=== PATIENT | female | born 1960 | race Caucasian/White ===

== ENCOUNTER 2024-03-30 15:55 | Outpatient (AMB) | payer OTHER, SELFPAY ==
--- NOTE | 2024-03-30 15:56 | MHC.PC.OV ---
Vital Signs 03/30/24 15:57 03/30/24 16:28 Height 5 ft 9 in Weight 294 lb BMI 43.4 BP 180/94 H 120/80 Blood Pressure Location Rt radial Lt radial Position Sitting Respiration 12 Pulse 82 Pulse Source Pulse Oximeter Pulse Oximetry (%) 95 Oxygen Delivery Method Room Air Intake Visit Reasons: NPV Desizing Machine Offbearer Required: No Accompanied by: Self / Same As Patient Allergies hydrocodone [From Vicodin] Allergy (Severe, Verified 03/30/24 16:02) Unknown lisinopril Allergy (Severe, Verified 03/30/24 16:02) Difficulty Breathing prednisolone Allergy (Severe, Verified 03/30/24 16:02) Unknown Medication List - Last Reconciled 04/01/24 by Cierra Whitten MD albuterol sulfate 90 mcg/actuation 1 inh inhalation Q4-6H PRN cefdinir 300 mg PO BID 10 days chlorthalidone 25 mg PO DAILY furosemide 20 mg PO DAILY PRN Tobacco use date assessed: 03/30/24 Dental Screening Dental Screen Date: 03/30/24 Did you have a dental visit in the last 12 months?: Yes Did you have a dental problem in the last 6 months where you did not have access to dental care?: No Was dental information given to patient?: Patient has dentist HPI HPI Comments History of Present Illness Details 64-year-old female with a past medical history of allergies/allergic rhinitis, asthma, recurrent sinusitis, Raynaud's, obesity, hyperlipidemia presenting for follow-up CV: On chlorthalidone 25 mg a day for hypertension. Initial BP quite high today, however quickly normalized. Declines statin though LDL 174 and 10/11/2023. She has intermittent leg swelling/fluid retention when she works 12 hour shifts. Not eating added salt. Denies shortness of breath Asthma/HGB: On Zyrtec, Flonase, albuterol. History of fluid-filled blisters, bullous pemphigoid, 2019 in about 10/11/2022. No interval issues Mammo 02/12/2023 Cologuard 02/28/2023 ROS see HPI PHYSICAL EXAM: GENERAL: Alert and oriented x 3. NAD EYES: EOMI. Anicteric. HENT: Moist mucous membranes. No scleral icterus. No cervical lymphadenopathy. LUNGS: Clear to auscultation bilaterally. CARDIOVASCULAR: Regular rate and rhythm. No murmur. No JVD. ABDOMEN: Soft, non-tender +bs EXTREMITIES:Trace bilateral LE edema SKIN: No rashes or lesions. Warm. NEUROLOGIC: No focal neurological deficits. CN II-XII grossly intact PSYCHIATRIC: Cooperative. Appropriate mood and affect [facility] Medical History Severe obesity Seasonal allergies Prediabetes Hyperlipidemia Asthma Surgical History Hx of tonsillectomy Family History Brother Heart disease Mother Heart disease Hypertension Father Heart disease Hypertension Social History Household Members: Spouse Housing: House Are you a primary child care lead teacher to a significant other at home: No Do you presently have visiting nurse or other home services: No 75 years or older and lives alone: No Alcohol intake: current Alcohol intake frequency: a few times a month Patient Tobacco Use Status: Never used Tobacco e-Cigarette/Vaping Use: Never Used service: No Current occupational status: employed 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 Cognitive needs: No Hearing needs: No Vision needs: Yes (will be seeing eye doctor) Physical exam (Primary Care) Vital Signs: Last Vital Signs Pulse 82 03/30/24 15:57 Resp 12 03/30/24 15:57 BP 120/80 03/30/24 16:28 Pulse Ox 95 03/30/24 15:57 Oxygen Delivery Method Room Air 03/30/24 15:57 BMI result Body Mass Index 43.4 Tobacco/Smoking Status: Tobacco use Status Tobacco use date assessed 03/30/24 03/30/24 16:04 Patient Tobacco Use Status Never used Tobacco 03/30/24 16:04 e-Cigarette/Vaping Use Never Used 03/30/24 16:04 Assessment and Plan Assessment & Plan (1) Hypertension: Code(s): I10 - Essential (primary) hypertension Qualifiers: Hypertension type: primary hypertension Qualified Code(s): I10 - Essential (primary) hypertension Plan: Blood pressure well controlled She will continue to watch sodium intake Furosemide prn LE swelling. Recommend 8-15mmhg compression socks on work days prn (2) Asthma: Code(s): J45.909 - Unspecified asthma, uncomplicated Qualifiers: Asthma complication type: unspecified Asthma persistence: intermittent Asthma severity: mild Qualified Code(s): J45.20 - Mild intermittent asthma, uncomplicated Plan: adequately controlled on current medications (3) Hyperlipidemia: Code(s): E78.5 - Hyperlipidemia, unspecified Qualifiers: Hyperlipidemia type: mixed hyperlipidemia Qualified Code(s): E78.2 - Mixed hyperlipidemia (4) Severe obesity: Code(s): E66.01 - Morbid (severe) obesity due to excess calories (5) Prediabetes: Code(s): R73.03 - Prediabetes Plan: monitor labs Orders: Orders Vitamin B12 and Folate 03/30/24 E78.2 - Mixed hyperlipidemia, I10 - Essential (primary) hypertension, J45.20 - Mild intermittent asthma, uncomplicated, R53.83 - Other fatigue Basic Metabolic Panel 03/30/24 E78.2 - Mixed hyperlipidemia, I10 - Essential (primary) hypertension, R73.03 - Prediabetes Vitamin D 1,25 dihydroxy 03/30/24 E78.2 - Mixed hyperlipidemia, I10 - Essential (primary) hypertension, J45.20 - Mild intermittent asthma, uncomplicated, R53.83 - Other fatigue Hemoglobin A1c 03/30/24 E78.2 - Mixed hyperlipidemia, I10 - Essential (primary) hypertension, R73.03 - Prediabetes Comprehensive Met. Panel 03/30/24 E78.2 - Mixed hyperlipidemia, I10 - Essential (primary) hypertension, R73.03 - Prediabetes Lipid Panel 03/30/24 E78.2 - Mixed hyperlipidemia, I10 - Essential (primary) hypertension, R73.03 - Prediabetes Medications: New cefdinir 300 mg PO BID 10 days 20 caps 0RF albuterol sulfate 90 mcg/actuation 1 inh inhalation Q4-6H PRN 1 ea 0RF shortness of breath or wheezing chlorthalidone 25 mg PO DAILY 30 tabs 0RF furosemide 20 mg PO DAILY PRN 90 tabs 1RF weight gain Coding Level of Care Code Est Pt Level 5 (38971) Diagnoses Primary hypertension I10 Hypertension type: primary hypertension Mild intermittent asthma, unspecified whether complicated J45.20 Asthma complication type: unspecified Asthma persistence: intermittent Asthma severity: mild Mixed hyperlipidemia E78.2 Hyperlipidemia type: mixed hyperlipidemia Severe obesity E66.01 Prediabetes R73.03 Time Spent (min) 46
[2024-03-30 15:57] VITALS: BP 180/94; PULSE 82; RESP 12; O2SAT 95; BMI 43.4
[2024-03-30 16:28] VITALS: BP 120/80
== END 2024-03-30 16:43 | disposition home or self-care (01) ==
PROVIDERS: PCP Internal Medicine; Visit Provider Internal Medicine
DX: I10 Essential (primary) hypertension (principal); E66.01 Morbid (severe) obesity due to excess calories; Z68.41 Body mass index [BMI] 40.0-44.9, adult; J45.20 Mild intermittent asthma, uncomplicated; E78.2 Mixed hyperlipidemia; R73.03 Prediabetes
CPT/HCPCS: 99215

== ENCOUNTER 2024-06-02 09:53 | Outpatient (REF) | payer OTHER, SELFPAY ==
[2024-06-02 11:38] LABS: Estimated Average Glucose 163 mg/dL; Hemoglobin A1c % 7.3 % (<6.0)
[2024-06-02 11:55] LABS: Alanine Aminotransferase 46 U/L (0-31); Albumin Level 4.1 g/dL (3.5-5.0); Alkaline Phosphatase 55 U/L (39-117); Anion Gap 14 (12-20); Aspartate Amino Transferase 25 U/L (5-31); Bilirubin Total 0.5 mg/dL (0.0-1.0); Blood Urea Nitrogen 22 mg/dL (9-16); Calcium 9.7 mg/dL (8.4-10.2); Carbon Dioxide 28 mmol/L (22-29); Chloride 101 mmol/L (96-108); Cholesterol 217 mg/dL (<200); Estimated Glomerular Filt Rate 59; Glucose Random 165 mg/dL (60-115); HDL Cholesterol 50 mg/dL (>40); LDL Cholesterol Calculated 142 mg/dL (<100); Potassium 3.7 mmol/L (3.3-5.1); Sodium 139 mmol/L (135-145); Total Protein 7.6 g/dL (6.5-8.0); Triglycerides 129 mg/dL (<150)
[2024-06-02 12:22] LABS: Folate 11.2 ng/mL (> or = 4.0); Vitamin B12 399 pg/mL (200-900)
[2024-06-10 18:13] LABS: VITAMIN D (1,25 OH) D3 32 pg/mL; Vit D (1,25-Dihydroxy) Total 32 pg/mL (18-72); Vitamin D (1,25 OH) D2 <8 pg/mL
== END 2024-06-02 09:54 | disposition home or self-care (01) ==
LOC: HO.WFDLDS 09:53
PROVIDERS: Visit Provider Internal Medicine
DX: I10 Essential (primary) hypertension (principal); E78.2 Mixed hyperlipidemia; R73.03 Prediabetes; J45.20 Mild intermittent asthma, uncomplicated; R53.83 Other fatigue
CPT/HCPCS: 36415; 80053; 80061; 82607; 82652; 82746; 83036

== ENCOUNTER 2024-06-08 10:47 | Outpatient (AMB) | payer OTHER, SELFPAY ==
--- NOTE | 2024-06-08 10:43 | MHC.PC.OV ---
Intake Visit Reasons: labs review Intake Note: Patient is looking to review labs. Correspondence Review Clerk Required: No Accompanied by: Self / Same As Patient Allergies hydrocodone [From Vicodin] Allergy (Severe, Verified 06/08/24 10:44) Unknown lisinopril Allergy (Severe, Verified 06/08/24 10:44) Difficulty Breathing prednisolone Allergy (Severe, Verified 06/08/24 10:44) Unknown Tobacco use date assessed: 03/30/24 Dental Screening Dental Screen Date: 03/30/24 HPI HPI Comments History of Present Illness Details 64-year-old female with a past medical history of allergies/allergic rhinitis, asthma, recurrent sinusitis, Raynaud's, obesity, hyperlipidemia presenting for follow-up recent labs-particulary A1C now in diabetic range at 7.3% Discussed A1C of 7.3%. is diabetic so has some knowledge. Discussed various treatment options. Wants 3 months to start exercising and wants to see diabetic development vice president. Would consider medications if not improved thereafter. LDL has improved but still high especially in light of diabetes. CV: On chlorthalidone 25 mg a day for hypertension. Initial BP quite high today, however quickly normalized. Declines statin though LDL 174 and 10/11/2023. She has intermittent leg swelling/fluid retention when she works 12 hour shifts. Not eating added salt. Denies shortness of breath Asthma/HGB: On Zyrtec, Flonase, albuterol. History of fluid-filled blisters, bullous pemphigoid, 2019 in about 10/11/2022. No interval issues Mammo 02/12/2023 Cologuard 02/28/2023 ROS see HPI PHYSICAL EXAM: telehealth [facility] Medical History Severe obesity Seasonal allergies Prediabetes Hyperlipidemia Asthma Surgical History Hx of tonsillectomy Family History Brother Heart disease Mother Heart disease Hypertension Father Heart disease Hypertension Social History Household Members: Spouse Housing: House Are you a primary infant childcare provider to a significant other at home: No Do you presently have visiting nurse or other home services: No 75 years or older and lives alone: No Alcohol intake: current Alcohol intake frequency: a few times a month Patient Tobacco Use Status: Never used Tobacco e-Cigarette/Vaping Use: Never Used service: No Current occupational status: employed 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 Cognitive needs: No Hearing needs: No Vision needs: Yes (will be seeing eye doctor) Physical exam (Primary Care) Tobacco/Smoking Status: Tobacco use Status Tobacco use date assessed 03/30/24 06/08/24 10:46 Patient Tobacco Use Status Never used Tobacco 06/08/24 10:46 e-Cigarette/Vaping Use Never Used 06/08/24 10:46 Telehealth Telehealth Telehealth Platform: Telephone Location of provider rendering services: practice address Location of patient: address on file Patient Identification confirmed using: Name, : Yes Telehealth method: voice only Patient verbally consented to treatment: Yes Patient verbally consented to billing insurance company: Yes Patient informed of any privacy concerns related to visit: Yes Minutes spent on Phone/Video with Pt.: 33 Assessment and Plan Assessment & Plan (1) Type 2 diabetes mellitus: Code(s): E11.9 - Type 2 diabetes mellitus without complications Qualifiers: Diabetes mellitus penitentiary insulin use: without penitentiary use Diabetes mellitus complication status: with hyperglycemia Qualified Code(s): E11.65 - Type 2 diabetes mellitus with hyperglycemia Plan: Discussed new diagnosis Testing supplies sent Have referred to nutrition and will give her 3 month trial without medications. She would be willing at that point to start medications if we dont see considerable improvement. Orders: Orders Hemoglobin A1c Today E11.9 - Type 2 diabetes mellitus without complications, E78.2 - Mixed hyperlipidemia, I10 - Essential (primary) hypertension, R94.6 - Abnormal results of thyroid function studies Lipid Panel Today E11.9 - Type 2 diabetes mellitus without complications, E78.2 - Mixed hyperlipidemia, I10 - Essential (primary) hypertension, R94.6 - Abnormal results of thyroid function studies TSH reflex Free T4 Today E11.9 - Type 2 diabetes mellitus without complications, E78.2 - Mixed hyperlipidemia, I10 - Essential (primary) hypertension, R94.6 - Abnormal results of thyroid function studies Comprehensive Met. Panel Today E11.9 - Type 2 diabetes mellitus without complications, E78.2 - Mixed hyperlipidemia, I10 - Essential (primary) hypertension, R94.6 - Abnormal results of thyroid function studies Referrals Large Animal Veterinarian Nutrition Referral E11.9 - Type 2 diabetes mellitus without complications Medications: New FreeStyle Lite Meter (blood-glucose meter) As directed 1 ea 0RF NS E11.9 - Type 2 diabetes mellitus without complications FreeStyle Lancets (lancets) once daily 100 ea 3RF NS E11.9 - Type 2 diabetes mellitus without complications amoxicillin-pot clavulanate 875-125 mg 1 tab PO BID 20 tabs 0RF FreeStyle Test (blood sugar diagnostic) once daily 100 ea 3RF NS E11.9 - Type 2 diabetes mellitus without complications Discontinued cefdinir Discontinued Reason: Doctor's Order 300 mg PO BID 10 days 20 caps 0RF Coding Level of Care Code Tele Est Pt Level 4 (54003) Diagnoses Type 2 diabetes mellitus with hyperglycemia, without long-term current use of insulin E11.65 Diabetes mellitus 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
== END 2024-06-08 12:50 | disposition home or self-care (01) ==
LOC: HO.HMCFM 10:47
PROVIDERS: PCP Internal Medicine; Visit Provider Internal Medicine
DX: E11.65 Type 2 diabetes mellitus with hyperglycemia (principal)

== ENCOUNTER → 2024-06-08 10:47 | Outpatient (BNVA) | payer OTHER, SELFPAY | PROVIDERS: PCP Internal Medicine; Visit Provider Internal Medicine ==

== ENCOUNTER 2024-06-10 10:10 | Outpatient (AMB) | payer OTHER, SELFPAY ==
--- NOTE | 2024-06-10 10:35 | A.OFFVIS_ITS ---
VS Expanded 06/10/24 10:37 06/10/24 10:48 Height 5 ft 9 in 5 ft 9 in Weight 293 lb 10.491 oz 294 lb BMI 43.4 43.4 Intake Visit Reasons: T2DM Allergies hydrocodone [From Vicodin] Allergy (Severe, Verified 06/08/24 10:44) Unknown lisinopril Allergy (Severe, Verified 06/08/24 10:44) Difficulty Breathing prednisolone Allergy (Severe, Verified 06/08/24 10:44) Unknown Nutrition Presentation Details: Ptt presents for MNT for T2DM Pt reports having no meal routine food frequency fruits: 0-1/d ve/day dairy : 3-4/d fish:not including starches > 30 /day beverages: sugary beverages physical activity: daily life activities smoking/etoh--- BS Monitoring Most Recent Diabetes Results: Cholesterol 217 mg/dL (<200) H 06/02/24 HDL Cholesterol 50 mg/dL (>40) 06/02/24 Triglycerides 129 mg/dL (<150) 06/02/24 Creatinine 0.96 mg/dL (0.5-1.4) 06/02/24 Blood Urea Nitrogen 22 mg/dL (9-16) H 06/02/24 Sodium 139 mmol/L (135-145) 06/02/24 Potassium 3.7 mmol/L (3.3-5.1) 06/02/24 Chloride 101 mmol/L (96-108) 06/02/24 Carbon Dioxide 28 mmol/L (22-29) 06/02/24 Calcium 9.7 mg/dL (8.4-10.2) 06/02/24 AST 25 U/L (5-31) 06/02/24 ALT 46 U/L (0-31) H 06/02/24 Total Protein 7.6 g/dL (6.5-8.0) 06/02/24 Albumin 4.1 g/dL (3.5-5.0) 06/02/24 JXQ-Fipfput-Dx.Jeor Equation Height: 5 ft 9 in Weight: 294 lb Resting Metabolic Rate: 1956.64 Calculated Activity Level: Sedentary Calories Needed to Maintain Weight: 2347.97 Diagnosis Nutrition problem #1: food nutri know defi As related to (etiology) #1: diagnosis As evidenced by (sign/symptom) #1: knowledge deficit of diet [facility] Medical History Severe obesity Seasonal allergies Prediabetes Hyperlipidemia Asthma Surgical History Hx of tonsillectomy Family History Brother Heart disease Mother Heart disease Hypertension Father Heart disease Hypertension Social History Household Members: Spouse Housing: House Are you a primary day care home provider to a significant other at home: No Do you presently have visiting nurse or other home services: No 75 years or older and lives alone: No Alcohol intake: current Alcohol intake frequency: a few times a month Patient Tobacco Use Status: Never used Tobacco e-Cigarette/Vaping Use: Never Used service: No Current occupational status: employed 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 Cognitive needs: No Hearing needs: No Vision needs: Yes (will be seeing eye doctor) Assessment & Plan Assessment & Plan (1) Type 2 diabetes mellitus: Code(s): E11.9 - Type 2 diabetes mellitus without complications Category: Medical Qualifiers: Diabetes mellitus complication status: with hyperglycemia Diabetes mellitus 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 school 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 insulin use: without jail use Qualified Code(s): E11.65 - Type 2 diabetes mellitus with hyperglycemia Plan: Wt: 134 Kg ( 06/15 ) Est kcal needs as per MSJ: 2300 (40% carb, 30% protein/fat) Est fluid needs as per 25-30 ml/d: 4000 Est prot per day as per 1 g/kg bw: 134 Recommend fiber intake : 8-10 g per day and gradually increase to 25-28 g per day for women and 35-38 g for men or as tolerated Recommend sodium intake per day : less than 1500 mg less than 2000 mg Educated patient on: ( R = reviewed V = verbalizes understanding N/R = needs review N/A = not applicable * Food sources of carbohydrate, adequate serving sizes and its role in various health conditions: R V N/R * Differences between complex carbohydrates a simple carbohydrates, role of fiber in diet: R V N/R * Lean protein sources of foods: R V NR * Differences between types of fats and role in diet (mono on saturated fat fatty acids, saturated fatty acids, trans fats): R V N/R * Food sources of sodium in salt and healthy modifications for heart health in kidney health: R V R/V * Vitamins and minerals: R V N/R * Healthy plate method concept: R * low sugar beverages: R * Physical activity: Benefits a precaution: R V N/R * Hypoglycemia protocol (rule of 15): R V N/R * Dietary prevention of Hyperglycemia: R V R/V Patient Instructions: Work on reducing sugars from beverages Practice mindful eating Choose foods with protein following healthy plate method at dinner time see meal ideas as reference Coding Level of Care Code Nutr Indiv Intake (63060) Diagnoses Type 2 diabetes mellitus with hyperglycemia, without long-term current use of insulin E11.65 Diabetes mellitus complication status: with hyperglycemia Diabetes mellitus jail insulin use: without jail use Time Spent (min) 30
[2024-06-10 10:37] VITALS: BMI 43.4
[2024-06-17 11:45] VITALS: BMI 43.4
== END 2024-06-10 11:27 | disposition home or self-care (01) ==
PROVIDERS: PCP Internal Medicine; Visit Provider Dietitian, Registered
DX: E11.65 Type 2 diabetes mellitus with hyperglycemia (principal)

== ENCOUNTER → 2024-06-10 10:10 | Outpatient (BNVA) | payer OTHER, SELFPAY | PROVIDERS: PCP Internal Medicine; Visit Provider Dietitian, Registered | DX: E11.65 Type 2 diabetes mellitus with hyperglycemia (principal); Z71.3 Dietary counseling and surveillance | CPT/HCPCS: 97802 ==

== ENCOUNTER 2024-07-02 09:50 | Outpatient (AMB) | payer OTHER, SELFPAY ==
--- NOTE | 2024-07-02 09:52 | MHC.PC.OV ---
Vital Signs 07/02/24 09:56 Height 5 ft 9 in Weight 287 lb 8 oz BMI 42.5 BP 118/82 Blood Pressure Location Rt brachial Position Sitting Pulse 66 Pulse Source Pulse Oximeter Pulse Oximetry (%) 99 Oxygen Delivery Method Room Air Intake Visit Reasons: EST/GI ISSUES/BLOOD IN STOOL Intake Note: Follow up diabetes. Blood in stool started Friday. Allergies hydrocodone [From Vicodin] Allergy (Severe, Verified 07/02/24 09:55) Unknown lisinopril Allergy (Severe, Verified 07/02/24 09:55) Difficulty Breathing prednisolone Allergy (Severe, Verified 07/02/24 09:55) Unknown Tobacco use date assessed: 07/02/24 Dental Screening Dental Screen Date: 03/30/24 HPI HPI Comments History of Present Illness Details 64-year-old female with a past medical history of allergies/allergic rhinitis, asthma, recurrent sinusitis, Raynaud's, obesity, hyperlipidemia, diabetic range A1C presenting for an episode of blood per rectum Last week she had 48 hours of GI upset diarrhea, fatigue. She had one BM after which the toilet paper was speckled with blood. She denies pain with defectation, rectal pain. Remote history of anal fissures. Discussed last A1C of 7.3%. She has seen the diabetic oracle specialist and changed her diet. She has been able to lose weight since her last A1C. She has a visit upcoming for repeat. is diabetic so has some knowledge. Discussed various treatment options. Wants 3 months to start exercising and wants to see diabetic oracle specialist. Would consider medications if not improved thereafter. LDL has improved but still high especially in light of diabetes. CV: On chlorthalidone 25 mg a day for hypertension. Initial BP quite high today, however quickly normalized. Declines statin though LDL 174 and 10/11/2023. She has intermittent leg swelling/fluid retention when she works 12 hour shifts. Not eating added salt. Denies shortness of breath Asthma/HGB: On Zyrtec, Flonase, albuterol. History of fluid-filled blisters, bullous pemphigoid, 2019 in about 10/11/2022. No interval issues Mammo 02/12/2023 Cologuard 02/28/2023 ROS see HPI PHYSICAL EXAM: GENERAL: Alert and oriented x 3. NAD EYES: EOMI. Anicteric. HENT: Moist mucous membranes. No scleral icterus. No cervical lymphadenopathy. LUNGS: Clear to auscultation bilaterally. CARDIOVASCULAR: Regular rate and rhythm. No murmur. No JVD. ABDOMEN: Soft, non-tender +bs EXTREMITIES: No edema. Non-tender. SKIN: No rashes or lesions. Warm. NEUROLOGIC: No focal neurological deficits. CN II-XII grossly intact PSYCHIATRIC: Cooperative. Appropriate mood and affect [facility] Medical History Severe obesity Seasonal allergies Prediabetes Hyperlipidemia Asthma Surgical History Hx of tonsillectomy Family History Brother Heart disease Mother Heart disease Hypertension Father Heart disease Hypertension Social History Household Members: Spouse Housing: House Are you a primary nurse healthcare manager to a significant other at home: No Do you presently have visiting nurse or other home services: No Alcohol intake: current Alcohol intake frequency: a few times a month Patient Tobacco Use Status: Never used Tobacco e-Cigarette/Vaping Use: Never Used Second Hand Smoke Exposure: No service: No Current occupational status: employed Current occupation: [employer] Cognitive needs: No Hearing needs: No Vision needs: Yes (will be seeing eye doctor) Questionnaire PHQ-9 Over the last 2 weeks, how often have you been bothered by any of the following problems? 1. Little interest or pleasure in doing things: not at all 2. Feeling down, depressed, or hopeless: not at all 3. Trouble falling or staying asleep, or sleeping too much: not at all 4. Feeling tired or having little energy: not at all 5. Poor appetite or overeating: not at all 6. Feeling bad about yourself - or that you are a failure or have let yourself or your family down: not at all 7. Trouble concentrating on things, such as reading the newspaper or watching television: not at all 8. Moving or speaking so slowly that other people could have noticed. Or the opposite - being so fidgety or restless that you have been moving around a lot more than usual: not at all 9. Thoughts that you would be better off or of hurting yourself in some way: not at all Total score: 0 Source: Developed by Drs. Dawood Lopez, Derek Oliver and colleagues, with an educational wilbur from [employer]. Thrive Questionnaire I am a: Patient What is your living situation today?: I have a steady place to live Within the past 12 months, did the food you bought not last and you didn't have the money to get more?: Never true Within the past 12 months, did you worry whether your food would run out before you got money to buy more?: Never true Do you have trouble paying for medicines?: No Do you have trouble getting transportation to medical appointments?: No Do you have trouble paying your heating and electricity bill?: No Do you have trouble taking care of your child, family member or friend?: No Do you have trouble with day-to-day activities such as bathing, preparing meals, shopping, managing finances, etc.?: No Are you currently unemployed and looking for a job?: No Are you interested in more education?: Yes Please select the resources that you would like help with: None Currently or been in a relationship where the following occur: No concerns reported THRIVE Score: 0 AUDIT C Alcohol Use Questionnaire (AUDIT-C) 2. How many drinks containing alcohol do you have on a typical day when you are drinking?: 1 or 2 Total Score: 0 FARHEEN-7 AMB Questionnaire FARHEEN-7 Feeling nervous, anxious, or on edge: 0 = Not at all Not being able to stop or control worryin = Not at all Worrying too much about different things: 0 = Not at all Trouble relaxin = Not at all Being so restless that it is hard to sit still: 0 = Not at all Becoming easily annoyed or irritable: 0 = Not at all Feeling afraid as if something awful might happen: 0 = Not at all Total FARHEEN-7 score (0-4 normal; 5-9 mild; 10-14 moderate; 15-21 severe): 0 Source: Developed by Gisela Pineda Kurt Kroenke and colleagues, with an educational wilbur from [employer]. Physical exam (Primary Care) Vital Signs: Last Vital Signs Pulse 66 07/02/24 09:56 BP 118/82 07/02/24 09:56 Pulse Ox 99 07/02/24 09:56 Oxygen Delivery Method Room Air 07/02/24 09:56 BMI result Body Mass Index 42.5 Tobacco/Smoking Status: Tobacco use Status Tobacco use date assessed 07/02/24 07/02/24 09:59 Patient Tobacco Use Status Never used Tobacco 07/02/24 09:52 e-Cigarette/Vaping Use Never Used 07/02/24 09:52 PHQ-9: PHQ-9 Score PHQ-9: Total score 0 07/03/24 21:16 Currently or been in a relationship where the following occur: No concerns reported Coding Level of Care Code Est Pt Level 4 (45840) Diagnoses Rectal bleeding K62.5 Type 2 diabetes mellitus with hyperglycemia, without long-term current use of insulin E11.65 Diabetes mellitus complication status: with hyperglycemia Diabetes mellitus longterm insulin use: without medical terminologist use Assessment & Plan Assessment & Plan (1) Rectal bleeding: Code(s): K62.5 - Hemorrhage of anus and rectum Category: Medical Plan: Reassurance provided. If recurs could go to colorectal (2) Type 2 diabetes mellitus: Code(s): E11.9 - Type 2 diabetes mellitus without complications Category: Medical Qualifiers: Diabetes mellitus complication status: with hyperglycemia Diabetes mellitus medical terminologist insulin use: without longterm use Qualified Code(s): E11.65 - Type 2 diabetes mellitus with hyperglycemia Plan: recheck A1C at 3 months. congratulated on interval weight loss
[2024-07-02 09:56] VITALS: BP 118/82; PULSE 66; O2SAT 99; BMI 42.5
== END 2024-07-02 12:53 | disposition home or self-care (01) ==
PROVIDERS: PCP Internal Medicine; Visit Provider Internal Medicine
DX: K62.5 Hemorrhage of anus and rectum (principal); E11.65 Type 2 diabetes mellitus with hyperglycemia

== ENCOUNTER → 2024-07-02 09:50 | Outpatient (BNVA) | payer OTHER, SELFPAY | PROVIDERS: PCP Internal Medicine; Visit Provider Internal Medicine ==

== ENCOUNTER 2024-07-02 10:36 | Outpatient (REF) | payer OTHER, SELFPAY ==
[2024-07-02 14:45] LABS: TSH reflex Free T4 2.48 uIU/mL (0.32-4.0)
== END 2024-07-02 10:37 | disposition home or self-care (01) ==
LOC: HO.WFDLDS 10:36
PROVIDERS: Visit Provider Internal Medicine
DX: E11.9 Type 2 diabetes mellitus without complications (principal); I10 Essential (primary) hypertension; E78.2 Mixed hyperlipidemia; R94.6 Abnormal results of thyroid function studies
CPT/HCPCS: 36415; 84443

== ENCOUNTER 2024-07-21 09:36 | Outpatient (AMB) | payer OTHER, SELFPAY ==
[2024-07-21 09:53] VITALS: BMI 42.1
--- NOTE | 2024-07-21 09:53 | A.OFFVIS_ITS ---
VS Expanded 07/21/24 09:53 Height 5 ft 9 in Weight 285 lb 4.45 oz BMI 42.1 Intake Visit Reasons: T2DM/CONFIRMED Allergies hydrocodone [From Vicodin] Allergy (Severe, Verified 07/02/24 09:55) Unknown lisinopril Allergy (Severe, Verified 07/02/24 09:55) Difficulty Breathing prednisolone Allergy (Severe, Verified 07/02/24 09:55) Unknown Nutrition Presentation Details: Pt presents for MNT f/u for T2DM Pt reports working on diet modifications and reducing on sugars and total carbs, feeling comfortable BS Monitoring Most Recent Diabetes Results: Cholesterol 217 mg/dL (<200) H 06/02/24 HDL Cholesterol 50 mg/dL (>40) 06/02/24 Triglycerides 129 mg/dL (<150) 06/02/24 Creatinine 0.96 mg/dL (0.5-1.4) 06/02/24 Blood Urea Nitrogen 22 mg/dL (9-16) H 06/02/24 Sodium 139 mmol/L (135-145) 06/02/24 Potassium 3.7 mmol/L (3.3-5.1) 06/02/24 Chloride 101 mmol/L (96-108) 06/02/24 Carbon Dioxide 28 mmol/L (22-29) 06/02/24 Calcium 9.7 mg/dL (8.4-10.2) 06/02/24 AST 25 U/L (5-31) 06/02/24 ALT 46 U/L (0-31) H 06/02/24 Total Protein 7.6 g/dL (6.5-8.0) 06/02/24 Albumin 4.1 g/dL (3.5-5.0) 06/02/24 [facility] Medical History Severe obesity Seasonal allergies Prediabetes Hyperlipidemia Asthma Surgical History Hx of tonsillectomy Family History Brother Heart disease Mother Heart disease Hypertension Father Heart disease Hypertension Social History Household Members: Spouse Housing: House Are you a primary healthcare educator to a significant other at home: No Do you presently have visiting nurse or other home services: No 75 years or older and lives alone: No Alcohol intake: current Alcohol intake frequency: a few times a month Patient Tobacco Use Status: Never used Tobacco e-Cigarette/Vaping Use: Never Used Second Hand Smoke Exposure: No service: No Current occupational status: employed 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 Cognitive needs: No Hearing needs: No Vision needs: Yes (will be seeing eye doctor) Assessment & Plan Assessment & Plan (1) Type 2 diabetes mellitus: Code(s): E11.9 - Type 2 diabetes mellitus without complications Category: Medical Qualifiers: Diabetes mellitus complication status: with hyperglycemia Diabetes mellitus intermodal customer service insulin use: without residential use Qualified Code(s): E11.65 - Type 2 diabetes mellitus with hyperglycemia Plan: Wt: 134 Kg ( 06/15 ), 129 kg (07/15) Est kcal needs as per MSJ: 2300 (40% carb, 30% protein/fat) Est fluid needs as per 25-30 ml/d: 4000 Est prot per day as per 1 g/kg bw: 134 Recommend fiber intake : 8-10 g per day and gradually increase to 25-28 g per day for women and 35-38 g for men or as tolerated Recommend sodium intake per day : less than 1500 mg less than 2000 mg Educated patient on: ( R = reviewed V = verbalizes understanding N/R = needs review N/A = not applicable * Food sources of carbohydrate, adequate serving sizes and its role in various health conditions: R V * Differences between complex carbohydrates a simple carbohydrates, role of fiber in diet: R V N/R * Lean protein sources of foods: R * Differences between types of fats and role in diet (mono on saturated fat fatty acids, saturated fatty acids, trans fats): R * Food sources of sodium in salt and healthy modifications for heart health in kidney health: R V R/V * Vitamins and minerals: R V N/R * Healthy plate method concept: R * low sugar beverages: R * Physical activity: Benefits a precaution: R V N/R * Hypoglycemia protocol (rule of 15): R V N/R * Dietary prevention of Hyperglycemia: R Patient Instructions: Include fruit at least 2 a day as part of your meal, replacing a serving of starch include at least 10 minutes of walking to start and gradually increase to 30 minutes 3-4 times a week Keep hydrated by having water with meals/snacksl Coding Level of Care Code Nutr Indiv Subseq (31040) Diagnoses Type 2 diabetes mellitus with hyperglycemia, without long-term current use of insulin E11.65 Diabetes mellitus complication status: with hyperglycemia Diabetes mellitus intermodal customer service insulin use: without residential use Time Spent (min) 30
== END 2024-07-21 10:26 | disposition home or self-care (01) ==
LOC: HO.ENCR 09:37
PROVIDERS: PCP Internal Medicine; Visit Provider Dietitian, Registered
DX: E11.65 Type 2 diabetes mellitus with hyperglycemia (principal)

== ENCOUNTER → 2024-07-21 09:36 | Outpatient (BNVA) | payer OTHER, SELFPAY | PROVIDERS: PCP Internal Medicine; Visit Provider Dietitian, Registered | DX: E11.65 Type 2 diabetes mellitus with hyperglycemia (principal); Z71.3 Dietary counseling and surveillance | CPT/HCPCS: 97803 ==

== ENCOUNTER 2024-08-27 09:51 | Outpatient (REF) | payer OTHER, SELFPAY ==
[2024-08-27 11:33] LABS: Estimated Average Glucose 148 mg/dL; Hemoglobin A1C 178.2766 umol/L; Hemoglobin A1c % 6.8 % (<6.0)
[2024-08-27 11:54] LABS: Alanine Aminotransferase 44 U/L (0-31); Albumin Level 4.1 g/dL (3.5-5.0); Alkaline Phosphatase 53 U/L (39-117); Anion Gap 11 (12-20); Aspartate Amino Transferase 30 U/L (5-31); Bilirubin Total 0.5 mg/dL (0.0-1.0); Blood Urea Nitrogen 26 mg/dL (9-16); Calcium 9.4 mg/dL (8.4-10.2); Carbon Dioxide 28 mmol/L (22-29); Chloride 105 mmol/L (96-108); Cholesterol 244 mg/dL (<200); Estimated Glomerular Filt Rate 59; Glucose Random 139 mg/dL (60-115); HDL Cholesterol 53 mg/dL (>40); LDL Cholesterol Calculated 169 mg/dL (<100); Potassium 3.9 mmol/L (3.3-5.1); Sodium 140 mmol/L (135-145); Total Protein 7.6 g/dL (6.5-8.0); Triglycerides 111 mg/dL (<150)
--- OUTSIDE RECORDS SUMMARY | 2024-09-01 07:13 | XMS_ITS | Data Portability ---
Author Organization [place] - [facility],, BETSY GODOY MD Address [address] [address] Care Team Providers Care Efficiency Analyst Name Role Phone YEE SINHA Primary Care Provider Assessment No assessment recorded. Plan of Treatment Reminders Order Date Submit Date Provider Last Modified By Organization Details Last Modified Time Details Appointments None recorded. Lab FSH (follicle -stimulat ing hormone), serum 2016 017 [facility], [address] [place], [address], 7 04:22:28 estradiol , serum 2016 017 [facility], [address] [place], [address], 7 04:22:26 pap test, thinprep, cervical 2016 017 [facility], Cytopathology Service, [address] [place], [address], 7 13:20:58 fecal occult blood, stool 2016 017 [email or web address] 1 In-Office Order, Internal Use Only DO Not Attach Compendium DO Not Attach Compendium, Do Not Delete/merge, [id number] 09:28:34 pap test, thinprep, cervical 2017 018 [facility], Cytopathology Service, [address] [place], [address], 8 16:57:32 fecal occult blood, stool 2017 018 [facility] In-Office Order, Internal Use Only DO Not Attach Compendium DO Not Attach Compendium, Do Not Delete/merge, [id number] 08:45:49 pap test, thinprep, cervical 2023 024 [facility], [address] [place], [address], 4 08:00:10 fecal occult blood, stool 2023 024 [email or web address] 1 In-Office Order, Internal Use Only DO Not Attach Compendium DO Not Attach Compendium, Do Not Delete/merge, [id number] 09:47:29 biopsy, endometri al 2023 024 [facility], [address] [place], [address], 4 07:42:51 Referral None recorded. Procedures biopsy, endometri um (PROC) 2023 024 [email or web address] In-Office Order, Internal Use Only DO Not Attach Compendium DO Not Attach Compendium, Do Not Delete/merge, [id number] 4 13:44:12 Surgeries None recorded. Imaging MAMMO, screening , digital, bilateral 2016 017 [facility] ([facility]), [address] [place], [address], 7 12:21:58 MAMMO, screening , digital, bilateral 2017 018 [facility] ([facility]), [address] [place], [address], 9 08:50:18 MAMMO, screening , digital, bilateral - Breast Aspiratio n and/or Biopsy if needed 2023 024 [facility]), [address] [place], [address], 4 14:36:05 US, pelvis, transabdo shauna + transvagi nal - recurrent midline, sharp, pelvic pain, new, over past two months 2023 024 [facility]), [address] [facility], [place], [address], 4 07:39:50 Medication Orders None recorded. Patient TargetsNo targets recorded. Patient Instructions Encounter Date Encounter Id Patient Instructions Last Modified By Organization Details Last Modified Time 05/30/2017 [id number] vaginal bleeding after menopause: care instructions [email or web address] Not available 05/30/2017 09:55:43 She is here for a problem visit as a new patient, she began the onset of bright red vaginal bleeding like a regular period, began 9 days ago, stopped bleeding yesterday, no bleeding today. 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 She is haivng what appears to be PMB, however it could also represent, The last hurrah. [facility] and serum estradiol levels. If pre menopausal then no need for sonogram an emb, if postmenopausal then needs these tests, she is aware. She also will return next week for annua land pap as she is overdue. We had a long disucssion concerning the managment of both options for the bleeding, she understnads. Models were used to explain how we do an emb. 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 She had recent 7 days of bleeding, her labs she she is not yet in menopause so no sonogram or emb is necessary at this time. Note from last week: She is here for a problem visit as a new patient, she began the onset of bright red vaginal bleeding like a regular period, began 9 days ago, stopped bleeding yesterday, no bleeding today. 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 She is haivng what appears to be PMB, however it could also represent, The last hurrah. [facility] FSH and serum estradiol levels. If pre menopausal then no need for sonogram an emb, if postmenopausal then needs these tests, she is aware. She also will return next week for annua land pap as she is overdue. We had a long disucssion concerning the managment of both options for the bleeding, she understnads. Models were used to explain how we do an emb. She will call in the future if she has any bleeding, to repeat the menopause labs, and to assess whether or not she might need a sonogram or emb. She appears to be doing well. She is advised to get 1500 mg of calcium daily into her diet and supplements combined. We discussed the benefits of adequate vitamin D supplementation to at least 400 units daily, daily aerobic exercise of 30 minutes, and stress reduction. Monthly self breast exam was taught, and stressed, and is advised to call if she discovers any new mass in the breast. Seat belt use for herself and passengers advised. The significant health benefits of becoming and remainig fit, with an optimal BMI, were also discussed. We discussed the potential reduction in chronic discomfort, the diminished risks of hypertension, diabetes, and heart disease with the proper weight management, and improved mobility as she ages. Strategies to reach and maintain her target weight wer discussed in detail, all questions answered. She has no vasomotor symptoms. Not available 06/03/2017 09:29:52 07/23/2018 [id number] self breast exam education Not available 07/23/2018 09:15:57 She is here for annual exam, is doing well. No menses since last visit. No significant vasomotor symptoms. Notes 8 pound weight loss this year with eating better. 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 She had recent 7 days of bleeding, her labs she she is not yet in menopause so no sonogram or emb is necessary at this time. She appears to be doing well. On exam she has moderate pitting edema of ankles, notes she has been eating salted salmon recently. Advised to drink dandylion tea today only, not regularly, and stop eating so much salt! BP was 176/83. We spent 10 minutes discussing salt substitutes such as spices and Mrs. Roblero, and her need to STOP SALTING as she is admittedly excessive in her salt intake. She agrees to take her BP at home daily and follow up with her PCP. She is advised to get 1500 mg of calcium daily into her diet and supplements combined. We discussed the benefits of adequate vitamin D supplementation to at least 400 units daily, daily aerobic exercise of 30 minutes, and stress reduction. Monthly self breast exam was taught, and stressed, and is advised to call if she discovers any new mass in the breast. Seat belt use for herself and passengers advised. The significant health benefits of becoming and remainig fit, with an optimal BMI, were also discussed. We discussed the potential reduction in chronic discomfort, the diminished risks of hypertension, diabetes, and heart disease with the proper weight management, and improved mobility as she ages. Strategies to reach and maintain her target weight wer discussed in detail, all questions answered. Not available 07/23/2018 09:16:14 11/28/2023 [id number] learning about healthy weight Not available 11/28/2023 09:39:21 She is here for annual, and also because she has had the onset of recurrent, sharp, midline pelvic pain that happens when she gets up from sitting and can last a day or two, over the pat two months. She feels that twice it resolved after she took antibiotics. She has not been here since 2018, she made the appointment because of the pain. Note from 2018: She is here for annual exam, is doing well. No menses since last visit. No significant vasomotor symptoms. Notes 8 pound weight loss this year with eating better. 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 __ She appears to be doing well. We discussed her pain and will order a pelvic sonogram. If it is negative then she is advised to follow up with her PCP as it may be bladder or GI. Monthly self breast exam was taught, and stressed, and is advised to call if she discovers any new mass in the breast. [email or web address] Not available 11/28/2023 09:47:25 12/09/2023 [id number] postmenopausal bleeding information [email or web address] Not available 12/09/2023 11:55:54 endometrial biop sy: about this test jose Not available 12/09/2023 11:55:55 She is here for emb after recent pelvic sonogram showed 1.3 cm endometrium with heterogeneous debris. Recent pap was negative. Note from 11/28/23: She is here for annual, and also because she has had the onset of recurrent, sharp, midline pelvic pain that happens when she gets up from sitting and can last a day or two, over the pat two months. She feels that twice it resolved after she took antibiotics. She has not been here since 2018, she made the appointment because of the pain. _ The cervix was closed and required dilation from closed, but did admit the cytobrush once dilated. Some clear mucous extruded under pressure once the cervix was initially dilated. Await results. Post procedure care discussed. Not available 12/09/2023 11:58:40 Reason for Referral None Reported. Results Created Date Observation Date Name Description Value Unit Range Abnormal Flag Note LastModifiedBy Organization Detail LastModifiedTime 07/23/2018 fecal occul t blood , stool Occult Blood negati ve Not Available In-Office Order Internal Use Only DO Not Attach Compendium DO Not Attach Compendium, Do Not Delete/merge, [id number] 07/23/2018 08:35:30 06/03/2017 fecal occul t blood , stool Occult Blood negati ve Not Available In-Office Order Internal Use Only DO Not Attach Compendium DO Not Attach Compendium, Do Not Delete/merge, [id number] 06/03/2017 08:55:19 05/30/20 17 05/30/2017 estra diol, serum comments [facility] [address] [facility] [place] [address] [phone] Not Available [facility] [address] [place], [address], 05/31/2017 04:22:26 05/30/20 17 05/30/2017 estra diol, serum estradiol 16.0 pg/mL Fulve stran t has been shown to cross -reac t with the estra diol assay and cause false ly eleva yoseph resul ts. For patie nts being treat ed with fulve stran t, Estra diol ultra sensi tive shoul d be order ed. This test is perfo rmed by LC/MS and is not expec yoseph to show cross react ivity to fulve stran t. ESTRA DIOL REFER ENCE RANGE S (PG/M L) FEMAL ES JOSIE LLY MENST RUATI NG: FOLLI CULAR PHASE 21.4 - 164.8 MIDCY JORGE PEAK 49.9 - 367.2 LUTEA L PHASE 40.2 - 259.0 POSTM ENOPA USAL: ON HRT <11 - 462.1 UNTRE ATED <11 - 58.3 Not Available [facility] [address] [place], [address], 05/31/2017 04:22:26 05/30/20 17 05/30/2017 FSH (foll icle- stimu latin g hormo ne), serum comments [facility] [address] [facility] [place] [address] [phone] Not Available [facility] [address] [place], [address], 05/31/2017 04:22:28 05/30/20 17 05/30/2017 FSH (foll icle- stimu latin g hormo ne), serum follicle stimulating hormone 11.2 mIU/m L FSH REFER ENCE RANGE S (MIU/ ML) FEMAL ES JOSIE LLY MENST RUATI NG: FOLLI CULAR PHASE 2.3 - 12.6 MIDCY JORGE PEAK 5.2 - 17.5 LUTEA L PHASE 1.7 - 9.5 POSTM ENOPA USAL: ON HRT 5.9 - 72.8 UNTRE ATED 12.7 - 132.2 Not Available [facility] [address] [place], [address], 05/31/2017 04:22:28 06/03/20 17 06/03/2017 pap, LB vol9aato ThinP rep Pap, Image d: NEGAT JULIA FOR SQUAM OUS INTRA EPITH ELIAL LESIO N AND CHARITY ELLIS . Nancy Fritz, GENET( CP) (Case elect liat curiel gopi d 06 04 2017) ADEQU ACY: Satis facto ry. Endoc ervic al/tr ansfo rmati on zone compo nent [facility]en [facility]. [facility]: Thin[facility] rep Pap HPV IF Ascus : Refle x 16 and 18, Cervi shanthi, Image d: CLINI SHANTHI INFOR MATIO N: HPV If Diagn osis of ASCUS . Z12.4 , V72.3 1, Z01.4 19 Not Available [facility], Cytopathology Service [address] [place], [address], 06/04/2017 13:20:58 07/23/20 18 07/23/2018 pap, LB own6nqin ThinP rep Pap, Image d: NEGAT JULIA FOR SQUAM OUS INTRA EPITH ELIAL LESIO N AND CHARITY ELLIS . Emmy Fermin a, CT( CP) (Case elect liat curiel gopi d 07 24 2018) ADEQU ACY: Satis facto ry. Endoc ervic al/tr ansfo rmati on zone compo nent absshaquille t. SOURC E: ThinP rep Pap HPV IF ASCUS , Cervi shanthi, Image d: CLINI SHANTHI INFOR MATIO N: HPV If Diagn osis of ASCUS . Menop ause, lps neg, z12.4 , z01.4 19 Not Available [facility], Cytopathology Service [address] [place], [address], 07/24/2018 16:57:32 11/28/19 24 12/04/2023 IGP, RFX APTIM A HPV ASCU diagnosis: Jose t NEGAT JULIA FOR INTRA EPITH ELIAL ANUJ Rivera OR CHARITY ELLIS . Not Available [facility] ([facility]) [address] [place], [address], 12/04/2023 12:06:33 11/28/19 24 12/04/2023 IGP, RFX APTIM A HPV ASCU specimen adequacy: Commshaquille t Satis facto ry for evalu ation . No endoc ervic al compo nent is ident ified . Not Available [facility] ([facility]) [address] [place], [address], 12/04/2023 12:06:33 11/28/19 24 12/04/2023 IGP, RFX APTIM A HPV ASCU clinician provided ICD10: Jose t Z01.4 19 Not Available [facility] ([facility]) [address] [place], [address], 12/04/2023 12:06:33 11/28/19 24 12/04/2023 IGP, RFX APTIM A HPV ASCU performed by: Jose Freitas er, Cytot rochelle clarke (ASCP ) Not Available [facility] ([facility]) [address] [place], [address], 12/04/2023 12:06:33 11/28/19 24 12/04/2023 IGP, RFX APTIM A HPV ASCU . . Not Available [facility] ([facility]) [address] [facility], [place], [address], 12/04/2023 12:06:33 11/28/19 24 12/04/2023 IGP, RFX APTIM A HPV ASCU note: Commen t The Pap smear is a scree betina test desig kyle to aid in the detec tion of julio ligna nt and malig nant condi tions of the uteri ne cervi x. It is not a diagn ostic proce dure and shoul d not be used as the sole means of detec ting cervi shanthi cance r. Both false -posi tive and false -nega tive repor ts do occur . Not Available [facility] ([facility]) [address] [facility], [place], [address], 12/04/2023 12:06:33 11/28/19 24 12/04/2023 IGP, RFX APTIM A HPV ASCU test methodology: Commen t This liqui d based ThinP rep(R ) pap test was scree kyle with the use of an image guide d systricardo m. Not Available [facility] ([facility]) [address] [facility], [place], [address], 12/04/2023 12:06:33 11/28/19 24 12/04/2023 IGP, RFX APTIM A HPV ASCU . Commen t The HPV DNA refle x crite fredrick were not met with this speci men resul t there fore, no HPV testi ng was perfo rmed. Not Available [facility] ([facility]) [address] [facility], [place], [address], 12/04/2023 12:06:33 11/28/19 24 11/28/2023 fecal occul t blood , stool Occult Blood negati ve Not Available In-Office Order Internal Use Only DO Not Attach Compendium DO Not Attach Compendium, Do Not Delete/merge, [id number] 11/28/2023 09:16:39 12/09/1912/09/2023 [facility] PATHO LOGY results Patiricardo nt Name: LUANN LOPEZ Lab Acces ira #: [id number] Patie nt : 1959 (Age: 63) Colle ction Date: 2023 Acces ira Date: 2023 Sign Out Date: 2023 Tissu e Sourc e: 1:END OMETR IAL BIOPS Y Final Diagn osis: Endom etriu m, biops y: - Lytic 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 Prima ry Patho logis t:Mary coburn M.D. elect liat curiel gopi d out by: Mc coburn M.D. / JESUS Clini shanthi Histo ry: 63-ye ar-ol d femal e, postm enopa usal bleed ing Gross Descr iptio n: Label ed endo metri al biops y . Recei curt in forma lucrecia is a 2.0 x 1.0 x 0.2 [address] of hemor rhagi c soft tissu e and blood clot which is submi tted in toto in 1 casse tte, multi ple piece s, x 2. (KD)* As of November 29, 2023, the speci men proce ssing and stain ing is perfo rmed at [facility] , [address], [place] (CLIA #[id number]). Its perfo rmanc e telma cteri stics are deter mined by [facility]. Phone #: [phone], [place] Patho logis t: [id number] Not Available [facility] [address] [place], [address], 12/11/2023 15:46:25 07/15/20 17 07/15/2017 MAMMO , scree betina, digit al, bilat eral No observ ation record ed. Not Available 06/23 12:24:58 12/03/19 24 12/02/2023 US, pelvi s, trans abdom inal + trans vagin al No observ ation record ed. [email or web address] [employer] [address] [facility], [place], [address], 12/09/2023 10:18:09 02/18/20 24 02/18/2024 MAMMO , scree betina, digit al, bilat eral No observ ation record ed. [facility] [address], [place], [address], 02/19/2024 07:51:20 Result Notes None recorded. Problems Name Problem SNOMED Code Status Onset Date Resolution Date Notes Provider Name and Address Organization Details Recorded Time Asthma 697675964 Active 2016 TONNY Zheng in [facility], 7 11:45:24 Raynaud's disease 688616913 Active 2016 TONNY Zheng in [facility], 7 11:45:41 Hypercholester olemia 48284809 Active 2016 TONNY Zheng in [facility], 7 11:46:02 Postmenopausal bleeding 38181953 Active 2016 TONNY Zheng in [facility], 7 11:46:22 Headache 99244672 Active 2016 TONNY Zheng in [facility], 7 11:46:44 Morbid obesity 418663362 Active 2016 TONNY Zheng in [facility], 7 11:47:05 Hypertensive disorder 63680068 Active 2017 Betsy Godoy MD [address] [facility], [place], [address], [place] - [facility], 8 09:15:52 Problem Notes None recorded. Procedures Surgical History Date Name Laterality Status Provider Name and Address Organization Details Recorded Time 12/09/19 Endometrial Biopsy completed Betsy Godoy MD [address] [facility],[address], [place], [address], [place] - [facility], 12/09/2023 11:58:24 Tonsillectomy completed Annamarie Beach in [facility], 05/27/2017 11:48:02 Imaging Results Imaging Date Name Status LastModified by Organization Details LastModified Time 07/15/2017 MAMMO, screening, digital, bilateral completed Information not available 07/15/2017 12:24:58 12/02/2023 US, pelvis, transabdominal + transvaginal [facility] [address] [facility], [place], [address], 12/09/2023 10:18:09 02/18/2024 MAMMO, screening, digital, bilateral completed [facility] [address] [facility] [address], [place], [address], 02/19/2024 07:51:20 Procedure Notes None recorded. Medical Equipment None Reported. Allergies Allergen ID Allergen Name Allergen Category Reaction Reaction Severity Criticality Documentation Date Start Date Code Code System Note Provider Name and Address Organization Details Recorded Time prednison e medicatio n other Not available Not available 05/27/2017 8640 RxNorm tearf mandie ss & mohini lomas s TONNY Zheng in [facility], 7 11:44:09 acetamino phen / hydrocodo ne medicatio n rash Not available Not available 05/27/201717664 2 RxNorm TONNY Zheng in [facility], 7 11:44:32 lisinopri l medicatio n cough Not available Not available 07/23/2018 22135 RxNorm Janna TONNY Cain in [facility], 8 08:33:27 Medications Name Sig Start Date Stop Date Status Note LastModified by Organization Details LastModified Time amoxicillin 500 mg capsule TAKE 1 CAPSULE BY MOUTH THREE TIMES DAILY UNTIL FINISHED 11/27 completed Not Available Not Available Not Available aspirin 325 mg tablet Take 1 tablet every day by oral route. 07/23 completed Not Available Not Available Not Available chlorthalid one 25 mg tablet TAKE 1 TABLET BY MOUTH DAILY active Not Available Not Available No t Available cephalexin 500 mg capsule TAKE 1 CAPSULE BY MOUTH 4 TIMES DAILY UNTIL FINISHED 11/27 completed Not Available Not Available Not Available ibuprofen 600 mg tablet TAKE 1 TABLET BY MOUTH every 6 hours NEEDED FOR PAIN WITH food 11/27 completed Not Available Not Available Not Available sulindac 200 mg tablet Take 1 tablet twice a day by oral route. 05/30 completed Not Available Not Available Not Available amoxicillin 875 mg-potassiu m clavulanate 125 mg tablet TAKE 1 TABLET BY MOUTH every 12 hours FOR 10 DAYS 11/27 completed Not Available Not Available Not Available clobetasol- emollient 0.05 % topical cream Apply twice daily to affected area for up to 2 weeks 05/30 completed Not Available Not Available Not Available albuterol sulfate active Not Available Not Available Not Available Vitals Date Recorded Body weight Body mass index (BMI) Body height Heart rate Systolic blood pressure Diastolic blood pressure Provider Name and Address Organization Details Last Updated DateTime 7 988561. 35 g 44.7 kg/m2 171.45 cm 71 /min 174 mm[Hg] 84 mm[Hg] Janna Beach in [facility], 7 09:00:59 Date Recorded Body height Body mass index (BMI) Body weight Heart rate Systolic blood pressure Diastolic blood pressure Provider Name and Address Organization Details Last Updated DateTime 7 171.45 cm 44.5 kg/m2 910635. 32 g 74 /min 151 mm[Hg] 87 mm[Hg] Janna Beach in [facility], 7 08:54:18 Date Recorded Body weight Body mass index (BMI) Body height Heart rate Systolic blood pressure Diastolic blood pressure Provider Name and Address Organization Details Last Updated DateTime 8 791640. 46 g 43.4 kg/m2 171.45 cm 70 /min 176 mm[Hg] 83 mm[Hg] Janna Beach in [facility], 8 08:31:09 Date Recorded Body height Body mass index (BMI) Body weight Heart rate Systolic blood pressure Diastolic blood pressure Provider Name and Address Organization Details Last Updated DateTime 4 170.18 cm 45.6 kg/m2 040455. 38 g 76 /min 147 mm[Hg] 80 mm[Hg] Janna Beach in [facility], 4 09:18:52 Date Recorded Body height Body mass index (BMI) Body weight Heart rate Systolic blood pressure Diastolic blood pressure Provider Name and Address Organization Details Last Updated DateTime 4 170.18 cm 46 kg/m2 319758 g 88 /min 165 mm[Hg] 88 mm[Hg] jennifer Beach in [facility], 4 10:21:29 Social History Question Answer Notes LastModified by Organizat ion Details LastModified Time Tobacco Smoking Status Never Smoker Not Available [facility] 07/25/2020 03:19:41 What Is Your Level Of Alcohol Consumption? Occasional [id number] Information not available 07/25/2020 How Many Years Have You Consumed Alcohol? 40 Information not available 11/28/2023 What Is Your Level Of Caffeine Consumption? Moderate [id number] Information not available 07/25/2020 In The 14 Days Before Symptom Onset, Have You Had Close Contact With A Laboratory-confir med COVID-19 While That Case Was Ill? No Information not available 11/28/2023 In The 14 Days Before Symptom Onset, Have You Had Close Contact With A Person Who Is Under Investigation For COVID-19 While That Person Was Ill? No Information not available 11/28/2023 Have You Been To An Area Known To Be High Risk For COVID-19? No Information not available 11/28/2023 Are You Currently Employed? Yes Information not available 11/28/2023 What Type Of Diet Are You Following? REGULAR [id number] Information not available 07/25/2020 Which Illicit Or Recreational Drugs Have You Used? No [id number] Information not available 07/25/2020 Do You Reside In Or Have You Traveled To An Area Where Ebola Virus Transmission Is Active? No [id number] Information not available 07/25/2020 Education 4 Year College Informatio n not available 05/30/2017 What Is The Highest Grade Or Level Of School You Have Completed Or The Highest Degree You Have Received? [id number] Information not available 11/28/2023 Who Is Your Employer? 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 [id number] Information not available 07/25/2020 How Many Days In The Past Year Have You Had A Heavy Drinking Consumption (4+ Female, 5+ Male)? 0 Information no t available 05/30/2017 Are There Any Guns Present In Your Home? Yes Information not available 11/28/2023 High Number Of Sexual Partners No Information not available 05/30/2017 To Which Gender Do You Self-identify? Female Information not available 05/30/2017 Marital Status Informatio n not available 05/30/2017 What Was The Date Of Your Most Recent Tobacco Screening? 11/28/2023 Information not available 11/28/2023 What Is Your Relationship Status? Information not available 11/28/2023 Are You Sexually Active? Yes [id number] Information not available 07/25/2020 How Much Tobacco Do You Smoke? No [id number] Information not available 07/25/2020 General Stress Level High Information not available 05/30/2017 Do You Feel Stressed (tense, Restless, Nervous, Or Anxious, Or Unable To Sleep At Night)? [id number] Information not available 11/28/2023 Do You Use Any Illicit Or Recreational Drugs? No Information not available 11/28/2023 How Many Years Have You Smoked Tobacco? 0 [id number] Information not available 07/25/2020 Have You Recently (within The Last 12 Weeks, Or During A Current ) Traveled To Or Lived In A Zika-affected Area? No Information not available 05/30/2017 How Many Days In The Past Year Have You Consumed 4 Or More Drinks? 0 Information no t available 11/28/2023 Sex: Female Functional Status Question Answer Note LastModified by Organizat ion Details LastModified Time What is your exercise level? Occasional [id number] Information not available 07/25/2020 Mental Status None recorded. Family History Relationship Description Onset Age of this Age Resolved Age Notes LastModified by Organization Details LastModified Time Mother Myocardial infarction 77 x2 [email or web address] Not available 05/27 11:50:11 Maternal Grandmother Malignant tumor of breast ? [email or web address] Not available 2016 09:03:47 Father Hypertensive disorder [email or web address] Not available 2016 11:51:53 Maternal Grandfather Myocardial infarction [email or web address] Not available 05/27 11:56:09 Medical History Condition Response Anesthesia complications N High Blood Pressure N Candidate for MyRisk panel N Autoimmune Condition Y Thyroid Problems N Kidney or Bladder Problems N GI Problems N Lung Disease Y Depression N Defects or Inherited Disease N History of Ovarian Cancer N Anemia N History of Breast Cancer N COREEN exposure N BRCA testing in past N Osteopenia N Psychiatric Illness N Anxiety Disorder N Diabetes N Arthritis N Headaches or Migraines Y Infertility N Asthma Y History of Cancer N Endometriosis N Hepatitis N Heart Disease N Hypertension N Osteoporosis N Gynecological History Statement/Question Response If Post Menopausal, Age at Menopause 55 Age at Menarche 15 Most Recent Mammogram Age at First Child 1 Most Recent Bone Density Obstetrics History GPAL:G 0 P 0 0 0 0 Type Value Living 0 Total 0 Past Encounters Encounter ID Performer Location Encounter Start Date Encounter Closed Date Diagnosis/Indication Diagnosis SNOMED-CT Code Diagnosis ICD10 Code [id number] MD BETSY Orozco MD [address] [place] [address] [address] [place] [address] 05/30/2017 08:45:48 05/30/2017 11:52:09 Postmenopausal bleeding 35959370 N95.0 [id number] MD BETSY Orozco MD [address] [place], [place] [address] [address] 06/03/2017 08:44:45 06/03/2017 11:33:17 Specialized medical examination 54080144 Z01.419 Screening for malignant neoplasm of rectum 899550979 Z12.12 Screening mammography 24 723554 Z12.31 [id number] MD BETSY Orozco MD [address] [place] [address], [place] [address] 07/23/2018 08:18:13 07/23/2018 12:05:41 Specialized medical examination 37461074 Z01.419 Screening for malignant neoplasm of rectum 509729283 Z12.12 Screening mammography 24 330601 Z12.31 Hypertensive disorder 38 850635 I10 [id number] MD BETSY Orozco MD [address] [place] [address], [place] [phone] 11/28/2023 09:12:49 11/28/2023 11:23:07 Specialized medical examination 19468778 Z01.419 Screening for malignant neoplasm of rectum 580134254 Z12.12 Screening mammography 24 245356 Z12.31 Pain in pelvis 98919278 R10.2 [id number] MD BETSY Orozco MD [address] [place] [address], [place] [address] 12/09/2023 10:14:46 12/09/2023 13:44:24 Postmenopausal bleeding 88668845 N95.0 Health Concerns Section Related Observation LastModified by Organization Detai ls LastModified Time None Recorded Concern Status LastModified by Organization Details LastModified Time None Recorded Advance Directives Directive None Recorded Payers Encounter Date Sequence Insurance Name Policy Number Policy [place] Covered Member ID [place] Member ID Guarantor Name 05/30/2017 1 [facility]) [id number] Fred Savage [id number] Vernell Savage 06/03/2017 1 [facility] [id number] Fred Savage [id number] Vernell Savage 07/23/2018 1 [facility]) [id number] Vernell Savage [id number] Vernell Savage 11/28/2023 1 [facility] [id number] Vernell Savage [id number] Vernell Savage 12/09/2023 1 [facility] ([facility] [id number] Vernell Savage [id number] Vernell Savage Notes Date Note Type Note Provider Name and Address Organization Details Recorded Time 05/30/2017 text/html She is here for a problem visit as a new patient, she began the onset of bright red vaginal bleeding like a regular period, began 9 days ago, stopped bleeding yesterday, no bleeding today. 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 Betsy Godoy MD [address], [place], [address], [place] - [facility], 05/30/2017 11:18:50 06/03/2017 text/html She is here for annual exam, has not had a supervisor sewing room exam since 2010. She had recent 7 days of bleeding, her labs she she is not yet in menopause so no sonogram or emb is necessary at this time. ____ Note from last week:She is here for a problem visit as a new patient, she began the onset of bright red vaginal bleeding like a regular period, began 9 days ago, stopped bleeding yesterday, no bleeding today. 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 She is haivng what appears to be PMB, however it could also represent, The last hurrah. [facility] FSH and serum estradiol levels. If pre menopausal then no need for sonogram an emb, if postmenopausal then needs these tests, she is aware. She also will return next week for annua land pap as she is overdue. We had a long disucssion concerning the managment of both options for the bleeding, she understnads. Models were used to explain how we do an emb. Betsy Godoy MD [address], [place], [address], [place] - [facility], 06/03/2017 09:30:12 07/23/2018 text/html She is here for annual exam, is doing well. No menses since last visit. 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 She had recent 7 days of bleeding, her labs she she is not yet in menopause so no sonogram or emb is necessary at this time. Betsy Godoy MD [address], [place], [address], [place] [facility], 07/23/2018 09:16:33 11/28/2023 text/html She is here for annual, and also because she has had the onset of recurrent, sharp, midline pelvic pain that happens when she gets up from sitting and can last a day or two, over the past two months. She feels that twice it resolved after she took antibiotics. She has not been here since 2018, she made the appointment because of the pain. Note from 2018: She is here for annual exam, is doing well. No menses since last visit. No significant vasomotor symptoms. Notes 8 pound weight loss this year with eating better.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 Betsy Godoy MD [address], [place], [address], [place] - [facility], 11/28/2023 09:47:52 12/09/2023 text/html She is here for emb after recent pelvic sonogram showed 1.3 cm endometrium with heterogeneous debris. Recent pap was negative. Note from 11/28/23: She is here for annual, and also because she has had the onset of recurrent, sharp, midline pelvic pain that happens when she gets up from sitting and can last a day or two, over the pat two months.She feels that twice it resolved after she took antibiotics.She has not been here since 2018, she made the appointment because of the pain. Betsy Godoy MD [address] [place] [address],[address], [place], [address], [place] [facility], 12/09/2023 11:58:57 OBGyn Episode No OBEpisode recorded.
== END 2024-08-27 09:52 | disposition home or self-care (01) ==
LOC: HO.WFDLDS 09:51
PROVIDERS: Visit Provider Internal Medicine
DX: E11.9 Type 2 diabetes mellitus without complications (principal); I10 Essential (primary) hypertension; E78.2 Mixed hyperlipidemia; R94.6 Abnormal results of thyroid function studies
CPT/HCPCS: 36415; 80053; 80061; 83036

== ENCOUNTER 2024-08-31 15:56 | Outpatient (AMB) | payer OTHER, SELFPAY ==
--- NOTE | 2024-08-31 16:05 | MHC.PC.OV ---
Vital Signs 08/31/24 16:12 Height 5 ft 9 in Weight 283 lb 8 oz BMI 41.9 BP 116/74 Blood Pressure Location Rt brachial Position Sitting Pulse 70 Pulse Source Pulse Oximeter Pulse Oximetry (%) 99 Oxygen Delivery Method Room Air Intake Visit Reasons: annual - see comments Intake Note: Physical. Lab results. Piping Manager Required: No Allergies hydrocodone [From Vicodin] Allergy (Severe, Verified 08/31/24 16:08) Unknown lisinopril Allergy (Severe, Verified 08/31/24 16:08) Difficulty Breathing prednisolone Allergy (Severe, Verified 08/31/24 16:08) Unknown Tobacco use date assessed: 07/02/24 Dental Screening Dental Screen Date: 03/30/24 HPI HPI Comments History of Present Illness Details 64-year-old female with a past medical history of allergies/allergic rhinitis, asthma, recurrent sinusitis, Raynaud's, obesity, hyperlipidemia, diabetic range A1C presenting for physical exam Improved A1C to 6.8% with diet and exercise. Last prior 7.3% which was first in diabetic range. She has seen the diabetic piece goods clerk and changed her diet. She has been able to lose weight since her last A1C. She has a visit upcoming for repeat. is diabetic so has some knowledge. Discussed various treatment options. Wants 3 months to start exercising and wants to see diabetic piece goods clerk. Would consider medications if not improved thereafter. LDL has improved but still high especially in light of diabetes. CV: On chlorthalidone 25 mg a day for hypertension. Controlled. Refuses statin therapy. She has intermittent leg swelling/fluid retention when she works 12 hour shifts. Not eating added salt. Denies shortness of breath Asthma/HGB: On Zyrtec, Flonase, albuterol. History of fluid-filled blisters, bullous pemphigoid, 2019 in about 10/11/2022. No interval issues. History of stable pulmonary nodules. Last CT 01/2023-no follow up needed Mammo 01/2024 Cologuard 02/28/2023 ROS see HPI PHYSICAL EXAM: GENERAL: Alert and oriented x 3. NAD EYES: EOMI. Anicteric. HENT: Moist mucous membranes. No scleral icterus. No cervical lymphadenopathy. LUNGS: Clear to auscultation bilaterally. CARDIOVASCULAR: Regular rate and rhythm. No murmur. No JVD. ABDOMEN: Soft, non-tender +bs EXTREMITIES: No edema. Non-tender. SKIN: No rashes or lesions. Warm. NEUROLOGIC: No focal neurological deficits. CN II-XII grossly intact PSYCHIATRIC: Cooperative. Appropriate mood and affect [facility] Medical History Severe obesity Seasonal allergies Prediabetes Hyperlipidemia Asthma Surgical History Hx of tonsillectomy Family History Brother Heart disease Mother Heart disease Hypertension Father Heart disease Hypertension Social History Household Members: Spouse Housing: House Are you a primary progressive care unit registered nurse to a significant other at home: No Do you presently have visiting nurse or other home services: No 75 years or older and lives alone: No Alcohol intake: current Alcohol intake frequency: a few times a month Patient Tobacco Use Status: Never used Tobacco e-Cigarette/Vaping Use: Never Used Second Hand Smoke Exposure: No service: No Current occupational status: employed 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 Cognitive needs: No Hearing needs: No Vision needs: Yes (will be seeing eye doctor) Questionnaire Thrive Questionnaire Date Thrive assessed: 07/02/24 I am a: Patient What is your living situation today?: I have a steady place to live Within the past 12 months, did the food you bought not last and you didn't have the money to get more?: Never true Within the past 12 months, did you worry whether your food would run out before you got money to buy more?: Never true Do you have trouble paying for medicines?: No Do you have trouble getting transportation to medical appointments?: No Do you have trouble paying your heating and electricity bill?: No Do you have trouble taking care of your child, family member or friend?: No Do you have trouble with day-to-day activities such as bathing, preparing meals, shopping, managing finances, etc.?: No Are you currently unemployed and looking for a job?: No Are you interested in more education?: Yes Please select the resources that you would like help with: None Currently or been in a relationship where the following occur: No concerns reported THRIVE Score: 0 Physical exam (Primary Care) Vital Signs: Last Vital Signs Pulse 70 08/31/24 16:12 BP 116/74 08/31/24 16:12 Pulse Ox 99 08/31/24 16:12 Oxygen Delivery Method Room Air 08/31/24 16:12 BMI result Body Mass Index 41.9 Tobacco/Smoking Status: Tobacco use Status Tobacco use date assessed 07/02/24 08/31/24 16:07 Patient Tobacco Use Status Never used Tobacco 08/31/24 16:10 e-Cigarette/Vaping Use Never Used 08/31/24 16:10 Thrive Assessment: Date of Thrive Assessment Date Thrive assessed 07/02/24 08/31/24 16:07 Currently or been in a relationship where the following occur: No concerns reported Coding Level of Care Code Est Pt Prev Care 40-64y(28899) Diagnoses Physical exam Z00.00 Type 2 diabetes mellitus with hyperglycemia, without long-term current use of insulin E11.65 Diabetes mellitus complication status: with hyperglycemia Diabetes mellitus long term care administrator insulin use: without skilled nursing use Severe obesity E66.01 Assessment & Plan Assessment & Plan (1) Physical exam: Code(s): Z00.00 - Encounter for general adult medical examination without abnormal findings Category: Medical Plan: Preventive measures for age discussed Mammo, colon cancer screening UTD Declines vaccinations (2) Type 2 diabetes mellitus: Code(s): E11.9 - Type 2 diabetes mellitus without complications Category: Medical Qualifiers: Diabetes mellitus complication status: with hyperglycemia Diabetes mellitus long term care administrator insulin use: without skilled nursing use Qualified Code(s): E11.65 - Type 2 diabetes mellitus with hyperglycemia Plan: Diet controlled Congratulated on interval weight loss (3) Severe obesity: Code(s): E66.01 - Morbid (severe) obesity due to excess calories Category: Medical Plan: Losing weight with diet and exercise Medications: New amoxicillin-pot clavulanate 875-125 mg 1 tab PO Q12H 20 tabs 0RF
[2024-08-31 16:12] VITALS: BP 116/74; PULSE 70; O2SAT 99; BMI 41.9
== END 2024-08-31 16:40 | disposition home or self-care (01) ==
PROVIDERS: PCP Internal Medicine; Visit Provider Internal Medicine
DX: Z00.00 Encounter for general adult medical examination without abnormal findings (principal); E11.65 Type 2 diabetes mellitus with hyperglycemia; E66.01 Morbid (severe) obesity due to excess calories; Z68.41 Body mass index [BMI] 40.0-44.9, adult

== ENCOUNTER → 2024-08-31 15:56 | Outpatient (BNVA) | payer OTHER, SELFPAY | PROVIDERS: PCP Internal Medicine; Visit Provider Internal Medicine ==

== ENCOUNTER 2024-10-22 13:44 | Outpatient (AMB) | payer OTHER, SELFPAY ==
--- NOTE | 2024-10-22 13:48 | A.OFFPC_ITS ---
Vital Signs 10/22/24 13:53 Height 5 ft 9 in Weight 287 lb 8 oz BMI 42.5 BP 128/86 Blood Pressure Location Rt brachial Position Sitting Pulse 69 Pulse Source Pulse Oximeter Pulse Oximetry (%) 98 Oxygen Delivery Method Room Air Intake Visit Reasons: DM Follow UP Intake Note: Follow up diabetes. Put on about 5 pounds in the past week. Took the furosemide one time about 3-4 days ago. Oven Tender Bagels Required: No Allergies hydrocodone [From Vicodin] Allergy (Severe, Verified 10/22/24 13:49) Unknown lisinopril Allergy (Severe, Verified 10/22/24 13:49) Difficulty Breathing prednisolone Allergy (Severe, Verified 10/22/24 13:49) Unknown Tobacco use date assessed: 07/02/24 Dental Screening Dental Screen Date: 03/30/24 HPI HPI Comments History of Present Illness Details 64-year-old female with a past medical h istory of allergies/allergic rhinitis, asthma, recurrent sinusitis, Raynaud's, obesity, hyperlipidemia, diabetic range A1C presenting for follow up Improved A1C to 6.8% with diet and exercise. She is frustrated by some recent weight gain despite careful diet. Prior A1C 7.3% which was first in diabetic range. She has seen the diabetic cooking teacher and changed her diet. She has been able to lose weight since her last A1C. She has a visit upcoming for repeat. is diabetic so has some knowledge. Discussed various treatment options. Wants 3 months to start exercising and wants to see diabetic cooking teacher. Would consider medications if not improved thereafter. LDL has improved but still high especially in light of diabetes. CV: On chlorthalidone 25 mg a day for hypertension. Controlled. Refuses statin therapy. She has intermittent leg swelling/fluid retention when she works 12 hour shifts. Not eating added salt. Denies shortness of breath Asthma/HGB: On Zyrtec, Flonase, albuterol. History of fluid-filled blisters, bullous pemphigoid, 2019 in about 10/11/2022. No interval issues. History of stable pulmonary nodules. Last CT 01/2023-no follow up needed Mammo 01/2024 Cologuard 02/28/2023 ROS see HPI PHYSICAL EXAM: GENERAL: Alert and oriented x 3. NAD EYES: EOMI. Anicteric. HENT: Moist mucous membranes. No scleral icterus. No cervical lymphadenopathy. LUNGS: Clear to auscultation bilaterally. CARDIOVASCULAR: Regular rate and rhythm. No murmur. No JVD. ABDOMEN: Soft, non-tender +bs EXTREMITIES: No edema. Non-tender. SKIN: No rashes or lesions. Warm. NEUROLOGIC: No focal neurological deficits. CN II-XII grossly intact PSYCHIATRIC: Cooperative. Appropriate mood and affect [facility] Medical History Severe obesity Seasonal allergies Prediabetes Hyperlipidemia Asthma Surgical History Hx of tonsillectomy Family History Brother Heart disease Mother Heart disease Hypertension Father Heart disease Hypertension Social History (Updated 10/22/24 @ 13:53 by Bisi Doherty CMA) Household Members: Spouse Housing: House Are you a primary manager medicare to a significant other at home: No Do you presently have visiting nurse or other home services: No 75 years or older and lives alone: No Alcohol intake: current Alcohol intake frequency: a few times a month Patient Tobacco Use Status: Never used Tobacco e-Cigarette/Vaping Use: Never Used Second Hand Smoke Exposure: No service: No Current occupational status: employed Current occupation: [employer] Cognitive needs: No Hearing needs: No Vision needs: Yes (will be seeing eye doctor) Questionnaire PHQ-9 Over the last 2 weeks, how often have you been bothered by any of the following problems? 1. Little interest or pleasure in doing things: not at all 2. Feeling down, depressed, or hopeless: not at all 3. Trouble falling or staying asleep, or sleeping too much: not at all 4. Feeling tired or having little energy: not at all 5. Poor appetite or overeating: not at all 6. Feeling bad about yourself - or that you are a failure or have let yourself or your family down: not at all 7. Trouble concentrating on things, such as reading the newspaper or watching television: not at all 8. Moving or speaking so slowly that other people could have noticed. Or the opposite - being so fidgety or restless that you have been moving around a lot more than usual: not at all 9. Thoughts that you would be better off or of hurting yourself in some way: not at all Total score: 0 Depression Screening Interpretation: Negative Depression Screening Done: Yes 44761 - PHQ-9 Billing: Yes Source: Developed by Drs. Dawood Lopez, Gisela Cornelius, Derek Oates and colleagues, with an educational wilbur from [email or web address]. Thrive Questionnaire Date Thrive assessed: 10/22/24 I am a: Patient What is your living situation today?: I have a steady place to live Within the past 12 months, did the food you bought not last and you didn't have the money to get more?: Never true Within the past 12 months, did you worry whether your food would run out before you got money to buy more?: Never true Do you have trouble paying for medicines?: I choose not to answer this question Do you have trouble getting transportation to medical appointments?: No Do you have trouble paying your heating and electricity bill?: I choose not to answer this question Do you have trouble taking care of your child, family member or friend?: No Do you have trouble with day-to-day activities such as bathing, preparing meals, shopping, managing finances, etc.?: No Are you currently unemployed and looking for a job?: No Are you interested in more education?: No Please select the resources that you would like help with: None Currently or been in a relationship where the following occur: No concerns reported THRIVE Score: 0 AUDIT C Alcohol Use Questionnaire (AUDIT-C) 1. How often do you have a drink containing alcohol?: Monthly or less 2. How many drinks containing alcohol do you have on a typical day when you are drinking?: 1 or 2 3. How often do you have six or more drinks on one occasion?: Never Total Score: 1 FARHEEN-7 AMB Questionnaire FARHEEN-7 Date FARHEEN - 7 assessed: 10/22/24 Feeling nervous, anxious, or on edge: 0 = Not at all Not being able to stop or control worryin = Not at all Worrying too much about different things: 0 = Not at all Trouble relaxin = Not at all Being so restless that it is hard to sit still: 0 = Not at all Becoming easily annoyed or irritable: 0 = Not at all Feeling afraid as if something awful might happen: 0 = Not at all Total FARHEEN-7 score (0-4 normal; 5-9 mild; 10-14 moderate; 15-21 severe): 0 Source: Developed by Drs. Dawood Lopez, Gisela Cornelius, Derek Oates and colleagues, with an educational wilbur from [email or web address]. FARHEEN-7 Assessment Billing FARHEEN-7 Assessment Tool: FARHEEN-7 Assessment 36949 Physical exam (Primary Care) Vital Signs: Last Vital Signs Pulse 69 10/22/24 13:53 BP 128/86 10/22/24 13:53 Pulse Ox 98 10/22/24 13:53 Oxygen Delivery Method Room Air 10/22/24 13:53 BMI result Body Mass Index 42.5 Tobacco/Smoking Status: Tobacco use Status Tobacco use date assessed 07/02/24 10/22/24 13:55 Patient Tobacco Use Status Never used Tobacco 10/22/24 13:55 e-Cigarette/Vaping Use Never Used 10/22/24 13:55 PHQ-9: PHQ-9 Score PHQ-9: Total score 0 10/24/24 14:13 Depression Screening Interpretation: Negative Thrive Assessment: Date of Thrive Assessment Date Thrive assessed 10/22/24 10/22/24 13:57 Currently or been in a relationship where the following occur: No concerns reported Coding Level of Care Code Est Pt Level 3 (59651) Diagnoses Type 2 diabetes mellitus with hyperglycemia, without long-term current use of insulin E11.65 Diabetes mellitus complication status: with hyperglycemia 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 insulin use: without intermodal owner operator truck driver use Primary hypertension I10 Hypertension type: primary hypertension Additional Codes FARHEEN-7 Assessment Billing - FARHEEN-7 Assessment Tool: FARHEEN-7 Assessment 27007 ([id number]) PHQ-9 - 96611 - PHQ-9 Billing: Yes ([id number]) Assessment & Plan Assessment & Plan (1) Type 2 diabetes mellitus: Code(s): E11.9 - Type 2 diabetes mellitus without complications Category: Medical Qualifiers: Diabetes mellitus complication status: with hyperglycemia Diabetes mellitus snf insulin use: without intermodal owner operator truck driver use Qualified Code(s): E11.65 - Type 2 diabetes mellitus with hyperglycemia Plan: Last A1C at goal. Would like to see it decrease back into normal range Will follow up in 6 weeks (2) Hypertension: Code(s): I10 - Essential (primary) hypertension Category: Medical Qualifiers: Hypertension type: primary hypertension Qualified Code(s): I10 - Essential (primary) hypertension Plan: controlled on current medication Orders: Orders TSH reflex Free T4 10/22/24 E11.65 - Type 2 diabetes mellitus with hyper glycemia, I10 - Essential (primary) hypertension Hemoglobin A1c 10/22/24 E11.65 - Type 2 diabetes mellitus with hyperglycemia, I10 - Essential (primary) hypertension Basic Metabolic Panel 10/22/24 E11.65 - Type 2 diabetes mellitus with hyperglycemia, I10 - Essential (primary) hypertension
[2024-10-22 13:53] VITALS: BP 128/86; PULSE 69; O2SAT 98; BMI 42.5
== END 2024-10-22 14:15 | disposition home or self-care (01) ==
PROVIDERS: PCP Internal Medicine; Visit Provider Internal Medicine
DX: E11.65 Type 2 diabetes mellitus with hyperglycemia (principal); I10 Essential (primary) hypertension

== ENCOUNTER → 2024-10-22 13:44 | Outpatient (BNVA) | payer OTHER, SELFPAY | PROVIDERS: PCP Internal Medicine; Visit Provider Internal Medicine | DX: E11.65 Type 2 diabetes mellitus with hyperglycemia (principal); I10 Essential (primary) hypertension | CPT/HCPCS: 96127 ==

== ENCOUNTER 2024-12-20 10:11 | Outpatient (AMB) | payer OTHER, SELFPAY ==
[2024-12-20 10:19] VITALS: BMI 41.9
--- NOTE | 2024-12-20 10:19 | A.OFFVIS_ITS ---
VS Expanded 12/20/24 10:19 12/20/24 10:41 Height 5 ft 9 in 5 ft 9 in Weight 283 lb 15.286 oz 284 lb BMI 41.9 41.9 Intake Visit Reasons: T2DM Allergies hydrocodone [From Vicodin] Allergy (Severe, Verified 10/22/24 13:49) Unknown lisinopril Allergy (Severe, Verified 10/22/24 13:49) Difficulty Breathing prednisolone Allergy (Severe, Verified 10/22/24 13:49) Unknown Nutrition Presentation Details: Pt presents for MNT f/u for T2DM, Pt reports working on diet modifications Pt reports working on reducing portions of sugars and feeling comfortable BS Monitoring Most Recent Diabetes Results: Cholesterol 244 mg/dL (<200) H 08/27/24 HDL Cholesterol 53 mg/dL (>40) 08/27/24 Triglycerides 111 mg/dL (<150) 08/27/24 Creatinine 0.95 mg/dL (0.5-1.4) 08/27/24 Blood Urea Nitrogen 26 mg/dL (9-16) H 08/27/24 Sodium 140 mmol/L (135-145) 08/27/24 Potassium 3.9 mmol/L (3.3-5.1) 08/27/24 Chloride 105 mmol/L (96-108) 08/27/24 Carbon Dioxide 28 mmol/L (22-29) 08/27/24 Calcium 9.4 mg/dL (8.4-10.2) 08/27/24 AST 30 U/L (5-31) 08/27/24 ALT 44 U/L (0-31) H 08/27/24 Total Protein 7.6 g/dL (6.5-8.0) 08/27/24 Albumin 4.1 g/dL (3.5-5.0) 08/27/24 HOD-Cawrtur-Kn.Jeor Equation Height: 5 ft 9 in Weight: 284 lb Resting Metabolic Rate: 1911.33 Calculated Activity Level: Sedentary Calories Needed to Maintain Weight: 2293.60 [facility] Medical History Severe obesity Seasonal allergies Prediabetes Hyperlipidemia Asthma Surgical History Hx of tonsillectomy Family History Brother Heart disease Mother Heart disease Hypertension Father Heart disease Hypertension Social History (Updated 10/22/24 @ 13:53 by Bisi Doherty CMA) Household Members: Spouse Housing: House Are you a primary healthcare advisory services manager to a significant other at home: No Do you presently have visiting nurse or other home services: No 75 years or older and lives alone: No Alcohol intake: current Alcohol intake frequency: a few times a month Patient Tobacco Use Status: Never used Tobacco e-Cigarette/Vaping Use: Never Used Second Hand Smoke Exposure: No service: No Current occupational status: employed Current occupation: [employer] Cognitive needs: No Hearing needs: No Vision needs: Yes (will be seeing eye doctor) Assessment & Plan Assessment & Plan (1) Type 2 diabetes mellitus: Code(s): E11.9 - Type 2 diabetes mellitus without complications Category: Medical Qualifiers: Diabetes mellitus complication status: with hyperglycemia Diabetes mellitus terminal supervisor insulin use: without custodial use Qualified Code(s): E11.65 - Type 2 diabetes mellitus with hyperglycemia Plan: Wt: 134 Kg ( 06/15 ), 129 kg (07/15), 129kg (12/14) Est kcal needs as per MSJ: 2300 (40% carb, 30% protein/fat) Est fluid needs as per 25-30 ml/d: 4000 Est prot per day as per 1 g/kg bw: 134 Recommend fiber intake : 8-10 g per day and gradually increase to 25-28 g per day for women and 35-38 g for men or as tolerated Recommend sodium intake per day : less than 1500 mg less than 2000 mg Educated patient on: ( R = reviewed V = verbalizes understanding N/R = needs review N/A = not applicable * Food sources of carbohydrate, adequate serving sizes and its role in various health conditions: R V * Differences between complex carbohydrates a simple carbohydrates, role of fiber in diet: R * Lean protein sources of foods: R * Differences between types of fats and role in diet (mono on saturated fat fatty acids, saturated fatty acids, trans fats): R * Food sources of sodium in salt and healthy modifications for heart health in kidney health: R * Vitamins and minerals: R V N/R * Healthy plate method concept: R * low sugar beverages: R * Physical activity: Benefits a precaution: R * Hypoglycemia protocol (rule of 15): R V N/R * Dietary prevention of Hyperglycemia: R Patient Instructions: Choose lean protein foods (poultry, fish, mindful of high fat food (amount of cheese, sauces, pastries,ow fat food portions Include water 8-10 cups/day (ok herb/fruit flavored) engage in physical activity 30 min 3 times a week Coding Level of Care Code Nutr Indiv Subseq (41500) Diagnoses Type 2 diabetes mellitus with hyperglycemia, without long-term current use of insulin E11.65 Diabetes mellitus complication status: with hyperglycemia Diabetes mellitus custodial insulin use: without custodial use Time Spent (min) 30
--- OUTSIDE RECORDS SUMMARY | 2024-12-20 11:21 | XMS_ITS | Encounter Summary ---
Author Organization [facility] Address [address] [place] [address] Care Team Providers Care Personal Financial Counselor Name Role Phone Mili Mondragon MD Primary Care Provider Unava ilable Encounter Details Date Type Department Care Team Description 02/27/2015 Transfer Records Medical Records [address] [place] [address] Abstract, Provider Social History Tobacco Use Types Packs/Day Years Used Date Smoking Tobacco: Never Alcohol Use Standard Drinks/Week Comments No 0 (1 standard drink = 0.6 oz pur e alcohol) Sex Assigned at Date Recorded Not on file documented as of this encounter Plan of Treatment Not on file documented as of this encounter Visit Diagnoses Not on filedocumented in this encounter Care Teams Personal Financial Counselor Relationship Specialty Start Date End Date Mili Mondragon MD PCP - General 11/23/03 documented as of this encounter
--- OUTSIDE RECORDS SUMMARY | 2024-12-20 11:21 | XMS_ITS | Encounter Summary ---
Author Organization [facility] Address [facility] [place] [address] Care Team Providers Care Clinical Engineer Name Role Phone Mili Mondragon MD Primary Care Provider Unava ilable Encounter Details Date Type Department Care Team Description 03/28/2016 Orders Only Radiology - [address] [address] Mili Mondragon MD Social History Tobacco Use Types Packs/Day Years Used Date Smoking Tobacco: Never Alcohol Use Standard Drinks/Week Comments No 0 (1 standard drink = 0.6 oz pur e alcohol) Sex Assigned at Date Recorded Not on file documented as of this encounter Plan of Treatment Not on file documented as of this encounter Visit Diagnoses Not on filedocumented in this encounter Care Teams Clinical Engineer Relationship Specialty Start Date End Date Mili Mondragon MD PCP - General 11/23/03 documented as of this encounter
--- OUTSIDE RECORDS SUMMARY | 2024-12-20 11:21 | XMS_ITS | Data Portability ---
Author Organization [place] [facility],, BETSY GODOY MD Address [address] [address] Care Team Providers Care Single Stroke Preformer Name Role Phone YEE SINHA Primary Care Provider Assessment No assessment recorded. Plan of Treatment Reminders Order Date Submit Date Provider Last Modified By Organization Details Last Modified Time Details Appointments None recorded. Lab biopsy, endometri al 2023 024 [email or web address] [facility] (Centralized Electronic Ordering - All Locations), Patient Can Go To The Location Of Their Choice, [id number] 4 07:42:51 pap test, thinprep, cervical 2023 024 [email or web address] [facility] (Centralized Electronic Ordering - All Locations), Patient Can Go To The Location Of Their Choice, [id number] 4 08:00:10 fecal occult blood, stool 2023 024 [email or web address] 1 In-Office Order, Internal Use Only DO Not Attach Compendium DO Not Attach Compendium, Do Not Delete/merge, [id number] 4 09:47:29 pap test, thinprep, cervical 2017 018 [facility], Cytopathology Service, [address] [facility], [place], [address], 8 16:57:32 fecal occult blood, stool 2017 018 [email or web address] In-Office Order, Internal Use Only DO Not Attach Compendium DO Not Attach Compendium, Do Not Delete/merge, [id number] 8 08:45:49 pap test, thinprep, cervical 2016 017 [facility], Cytopathology Service, [address] [place], [address], 7 13:20:58 fecal occult blood, stool 2016 017 [email or web address] 1 In-Office Order, Internal Use Only DO Not Attach Compendium DO Not Attach Compendium, Do Not Delete/merge, [id number] 7 09:28:34 FSH (follicle -stimulat ing hormone), serum 2016 017 [facility], [address] [place], [address], 7 04:22:28 estradiol , serum 2016 017 [facility], [address] [place], [address], 7 04:22:26 Referral None recorded. Procedures biopsy, endometri um (PROC) 2023 024 frida In-Office Order, Internal Use Only DO Not Attach Compendium DO Not Attach Compendium, Do Not Delete/merge, [id number] 4 13:44:12 Surgeries None recorded. Imaging MAMMO, screening , digital, bilateral - Breast Aspiratio n and/or Biopsy if needed 2023 024 [facility] ([facility] [address] [place], [address], 4 14:36:05 US, pelvis, transabdo shauna + transvagi nal - recurrent midline, sharp, pelvic pain, new, over past two months 2023 024 [facility] ([facility]), [address] [place], [address], 4 07:39:50 MAMMO, screening , digital, bilateral 2017 018 carmela [facility] ([facility]), [address] [place], [address], 9 08:50:18 MAMMO, screening , digital, bilateral 2016 017 HAR[facility] ([facility]), [address] [place], [address], 7 12:21:58 Medication Orders None recorded. Patient TargetsNo targets recorded. Patient Instructions Encounter Date Encounter Id Patient Instructions Last Modified By Organization Details Last Modified Time 05/30/2017 [id number] vaginal bleeding after menopause: care instructions mike Not available 05/30/2017 09:55:43 She is here for a problem visit as a new patient, she began the onset of bright red vaginal bleeding like a regular period, began 9 days ago, stopped bleeding yesterday, no bleeding today. Her last athletic agent exam was 6 years ago, that was her only single pap in her entire life. She is haivng what appears to be PMB, however it could also represent, The last hurrah. [facility] FSH and serum estradiol levels. If pre [...] 45 minutes Not available 05/30/2017 11:18:30 06/03/2017 [id number] She is here for annual exam, has not had a athletic agent exam since 2010. She had recent 7 [...] bleeding yesterday, no bleeding today. Her last athletic agent exam was 6 years ago, that was her only single pap in her entire life. She is haivng what appears to be PMB, however it could also represent, The last hurrah. [facility] FSH and serum estradiol levels. If pre [...] vasomotor symptoms. Not available 06/03/2017 09:29:52 07/23/2018 [id number] self breast exam education Not available 07/23/2018 09:15:57 She is here for annual exam, is doing well. No menses since last visit. No significant vasomotor symptoms. Notes 8 pound weight loss this year with eating better. Works at a [employer] in [place]. She has two artificial ponds with [place], this is her relaxation! Note from 2017: She is here for annual exam, has not had a athletic agent exam since 2010. She had recent 7 [...] questions answered. Not available 07/23/2018 09:16:14 11/28/2023 [id number] learning about healthy weight [email or web address] Not available 11/28/2023 09:39:21 She is here [...] year with eating better. Works at a [employer] shop in [place]. She has two artificial ponds with lone pine, this is her relaxation! __ She appears [...] discovers any new mass in the breast. Not available 11/28/2023 09:47:25 12/09/2023 [id number] postmenopausal bleeding information [email or web address] Not available 12/09/2023 11:55:54 endometrial biop sy: about this test [facility] Not available 12/09/2023 11:55:55 She is here [...] Abnormal Flag Note LastModifiedBy Organization Detail LastModifiedTime 07/23/20 18 07/23/2018 fecal occul t blood , stool Occult Blood negati ve Not Available In-Office Order Internal Use Only DO Not Attach Compendium DO Not Attach Compendium, Do Not Delete/merge, [id number] 07/23/2018 08:35:30 06/03/20 17 06/03/2017 fecal occul t blood , stool Occult Blood negati ve Not Available In-Office Order Internal Use Only DO Not Attach Compendium DO Not Attach Compendium, Do Not Delete/merge, [id number] 06/03/2017 08:55:19 05/30/20 17 05/30/2017 estra diol, serum comments [facility] [address] [facility] [place] [address] [phone] Not Available [facility] [address] [place], [address], 05/31/2017 04:22:26 05/30/20 17 05/30/2017 estra diol, [...] - 58.3 Not Available [facility] [address] [place], [address], 05/31/2017 04:22:26 05/30/20 17 05/30/2017 FSH (foll icle- stimu latin g hormo ne), serum comments [facility] [address] [facility] Diony [place] [address] [phone] Not Available [facility] [address] [place], [address], 05/31/2017 04:22:28 05/30/20 17 05/30/2017 FSH (foll [...] - 132.2 Not Available [facility] [address] [place], [address], 05/31/2017 04:22:28 06/03/20 17 06/03/2017 pap, LB [id number] ThinP rep Pap, Image d: NEGAT JULIA FOR SQUAM OUS INTRA EPITH ELIAL LESIO N AND CHARITY ELLIS . Nancy Fritz, CT( CP) (Case elect liat curiel gopi d 06 04 2017) ADEQU ACY: Satis facto ry. Endoc ervic al/tr ansfo rmati on zone compo nent [facility]. [facility]: ThinP rep Pap HPV IF Ascus : Refle x 16 and 18, Cervi shanthi, Image d: CLINI SHANTHI INFOR MATIO N: HPV If Diagn osis of ASCUS . Z12.4 , V72.3 1, Z01.4 19 Not Available [facility], Cytopathology Service [address] [place], [address], 06/04/2017 13:20:58 07/23/20 18 07/23/2018 pap, LB [id number] ThinP rep Pap, Image d: NEGAT JULIA FOR SQUAM OUS INTRA EPITH ELIAL LESIO N AND MALIG RHONDA . Emmy Fermin a, CT( CP) (Case [...] neg, z12.4 , z01.4 19 Not Available [facility], Cytopathology Service [address] [facility], [place], [address], 07/24/2018 16:57:32 11/28/19 24 12/04/2023 IGP, RFX APTIM A HPV ASCU diagnosis: Jose t NEGAT JULIA FOR INTRA EPITH ELIAL LESIO N OR CHARITY ELLIS . Not Available [facility] ([facility]) [address] [place], [address], 12/04/2023 12:06:33 11/28/19 24 12/04/2023 IGP, RFX APTIM A HPV ASCU specimen adequacy: Jose t Satis facto ry for evalu ation . No endoc ervic al compo nent is ident ified . Not Available [facility] ([facility]) [address] [place], [address], 12/04/2023 12:06:33 11/28/19 24 12/04/2023 IGP, RFX APTIM A HPV ASCU clinician provided ICD10: Jose clarke Z01.4 19 Not Available [facility] ([facility]) [address] [place], [address], 12/04/2023 12:06:33 11/28/19 24 12/04/2023 IGP, RFX APTIM A HPV ASCU performed by: Jose hernandez, Cytot rochelle clarke (ASCP ) Not Available [facility] ([facility]) [address] [facility], [place], [address], 12/04/2023 12:06:33 11/28/19 24 12/04/2023 IGP, RFX APTIM A HPV ASCU . . Not Available [facility] ([facility]) [address] [facility], [place], [address], 12/04/2023 12:06:33 11/28/19 24 12/04/2023 IGP, RFX [...] ts do occur . Not Available [facility] ([facility]) [address] [facility], [place], [address], 12/04/2023 12:06:33 11/28/19 24 12/04/2023 IGP, RFX APTIM A HPV ASCU test methodology: Commen t This liqui d based ThinP rep(R ) pap test was scree kyle with the use of an image guide d syste m. Not Available [facility] ([facility]) [address] [facility], [place], [address], 12/04/2023 12:06:33 11/28/19 24 12/04/2023 IGP, RFX APTIM A HPV ASCU . Commen t The HPV DNA refle x crite fredrick were not met with this speci men resul t there fore, no HPV testi ng was perfo rmed. Not Available [facility] ([facility]) [address] [facility], [place], [address], 12/04/2023 12:06:33 11/28/19 24 11/28/2023 fecal occul t blood , stool Occult Blood negati ve Not Available In-Office Order Internal Use Only DO Not Attach Compendium DO Not Attach Compendium, Do Not Delete/merge, [id number] 11/28/2023 09:16:39 12/09/19 24 12/09/2023 [facility] LOG[facility] results Winifred ingram Name: LUANN LOPEZ Lab Acces ira #: [id number] Patiricardo nt : 1959 (Age: 63) Colle ction [...] and stain ing is perfo rmed at [facility] , [address], [place] (CLIA #[id number]). Its perfo rmanc e telma cteri stics are deter mined by [employer] [employer]. Phone #: [phone], On-[place] ll Patho logis t: [id number] Not Available [facility] (Centralized Electronic Ordering - All Locations) Patient Can Go To The Location Of Their Choice, [id number] 12/11/2023 15:46:25 07/15/20 17 07/15/2017 MAMMO , scree betina, digit al, bilat eral No observ ation record ed. Not Available 06/23 12:24:58 12/03/19 24 12/02/2023 US, pelvi s, trans abdom inal + trans vagin al No observ ation record ed. [email or web address] [facility] [address] [facility], [place], [address], 12/09/2023 10:18:09 02/18/20 24 02/18/2024 MAMMO , scree betina, digit al, bilat eral No observ ation record ed. [facility] In [address], [place], [address], 02/19/2024 07:51:20 Result Notes None recorded. Problems Name Problem SNOMED Code Status Onset Date Resolution Date Notes Provider Name and Address Organization Details Recorded Time Asthma 292835364 Active 2016 TONNY Zheng in [facility], 7 11:45:24 Raynaud's disease 023318136 Active 2016 TONNY Zheng in [facility], 7 11:45:41 Hypercholester olemia 59117460 Active 2016 TONNY Zheng in [facility], 7 11:46:02 Postmenopausal bleeding 34601637 Active 2016 TONNY Zheng in [facility], 7 11:46:22 Headache 00553207 Active 2016 TONNY Zheng in [facility], 7 11:46:44 Morbid obesity 611121735 Active 2016 TONNY Zheng in [facility], 7 11:47:05 Hypertensive disorder 35717582 Active 2017 Betsy Godoy MD [address] [facility], [place], [address], [place] [facility], 8 09:15:52 Problem Notes None recorded. Procedures Surgical History Date Name Laterality Status Provider Name and Address Organization Details Recorded Time 12/09/19 Endometrial Biopsy completed Betsy Godoy MD [address] [facility],[address], [place], [address], [place] [facility], 12/09/2023 11:58:24 Tonsillectomy completed Annamarie Lanejustina Beach in [facility], 05/27/2017 11:48:02 Imaging Results Imaging Date Name Status LastModified by Organization Details LastModified Time 07/15/2017 MAMMO, screening, digital, bilateral completed Information not available 07/15/2017 12:24:58 12/02/2023 US, pelvis, transabdominal + [facility]aginal [facility] [address] [facility], [place], [address], 12/09/2023 10:18:09 02/18/2024 MAMMO, screening, digital, bilateral completed [facility] [address] [facility] [address], [place], [address], 02/19/2024 07:51:20 Procedure Notes None recorded. Medical Equipment None Reported. Allergies Allergen ID Allergen Name Allergen Category Reaction Reaction Severity Criticality Documentation Date Start Date Code Code System Note Provider Name and Address Organization Details Recorded Time prednison e medicatio n other Not available Not available 05/27/2017 8640 RxNorm tearf mandie ss & mohini lomas s TONNY Zheng in [facility], 7 11:44:09 acetamino phen / hydrocodo ne medicatio n rash Not available Not available 05/27/201724077 2 RxNorm TONNY Zheng in [facility], 11:44:32 lisinopri l medicatio n cough Not available Not available 07/23/2018 89084 RxNorm Janna TONNY Cain in [facility], 8 08:33:27 Medications Name Sig Start Date [...] Address Organization Details Last Updated DateTime 7 686896. 35 g 44.7 kg/m2 171.45 cm 71 /min 174 mm[Hg] 84 mm[Hg] Janna Beach in [facility], 7 09:00:59 Date Recorded Body height Body mass index (BMI) Body weight Heart rate Systolic blood pressure Diastolic blood pressure Provider Name and Address Organization Details Last Updated DateTime 7 171.45 cm 44.5 kg/m2 904279. 32 g 74 /min 151 mm[Hg] 87 mm[Hg] Janna Beach in [facility], 7 08:54:18 Date Recorded Body weight Body mass index (BMI) Body height Heart rate Systolic blood pressure Diastolic blood pressure Provider Name and Address Organization Details Last Updated DateTime 8 258931. 46 g 43.4 kg/m2 171.45 cm 70 /min 176 mm[Hg] 83 mm[Hg] Janna Beach in [facility], 8 08:31:09 Date Recorded Body height Body mass index (BMI) Body weight Heart rate Systolic blood pressure Diastolic blood pressure Provider Name and Address Organization Details Last Updated DateTime 4 170.18 cm 45.6 kg/m2 483549. 38 g 76 /min 147 mm[Hg] 80 mm[Hg] Janna Beach in [facility], 4 09:18:52 Date Recorded Body height Body mass index (BMI) Body weight Heart rate Systolic blood pressure Diastolic blood pressure Provider Name and Address Organization Details Last Updated DateTime 4 170.18 cm 46 kg/m2 928503 g 88 /min 165 mm[Hg] 88 mm[Hg] jennifer Beach in [facility], 4 10:21:29 Social History Question Answer Notes LastModified by Organizat ion Details LastModified Time Tobacco Smoking Status Never Smoker Not Available [facility] 07/25/2020 03:19:41 What Is Your Level Of Alcohol Consumption? Occasional [id number] Information not available 07/25/2020 How Many Years Have You Consumed Alcohol? 40 Information not available 11/28/2023 What Is Your Level Of Caffeine Consumption? Moderate [id number] Information not available 07/25/2020 In The 14 [...] Type Of Diet Are You Following? REGULAR [id number] Information not available 07/25/2020 Which Illicit Or Recreational Drugs Have You Used? No [id number] Information not available 07/25/2020 Do You Reside In Or Have You Traveled To An Area Where Ebola Virus Transmission Is Active? No [id number] Information not available 07/25/2020 Education 4 Year College Informatio n not available 05/30/2017 What Is The Highest Grade Or Level Of School You Have Completed Or The Highest Degree You Have Received? [id number] Information not available 11/28/2023 Who Is Your Employer? 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 [id number] Information not available 07/25/2020 How Many Days [...] available 11/28/2023 Are You Sexually Active? Yes [id number] Information not available 07/25/2020 How Much Tobacco Do You Smoke? No [id number] Information not available 07/25/2020 General Stress Level High Information not available 05/30/2017 Do You Feel Stressed (tense, Restless, Nervous, Or Anxious, Or Unable To Sleep At Night)? [id number] Information not available 11/28/2023 Do You Use Any Illicit Or Recreational Drugs? No Information not available 11/28/2023 How Many Years Have You Smoked Tobacco? 0 [id number] Information not available 07/25/2020 Have You Recently [...] Time What is your exercise level? Occasional [id number] Information not available 07/25/2020 Mental Status None [...] Problems N Kidney or Bladder Problems N Depression N GI Problems N Lung Disease Y Defects or Inherited Disease N Anemia N History of Ovarian Cancer N History of Breast Cancer N COREEN exposure N BRCA testing in past N Osteopenia N Psychiatric Illness N Diabetes N Anxiety Disorder N Arthritis N Headaches or Migraines Y [...] Diagnosis/Indication Diagnosis SNOMED-CT Code Diagnosis ICD10 Code Diagnosis Note [id number] MD BETSY Orozco MD [address] [facility] [address] [place] [address] 05/30/2017 08:45:48 05/30/2017 11:52:09 Postmenopausal bleeding 77282444 N95.0 [id number] MD BETSY Orozco MD [address] [place] [address],[place] [address] 06/03/2017 08:44:45 06/03/2017 11:33:17 Specialized medical examination 54437307 Z01.419 Screening for malignant neoplasm of rectum 000634082 Z12.12 Screening mammography 24 208234 Z12.31 [id number] MD BETSY Orozco MD [address] [place] [address], [place] [address] 07/23/2018 08:18:13 07/23/2018 12:05:41 Specialized medical examination 42835025 Z01.419 Screening for malignant neoplasm of rectum 948623854 Z12.12 Screening mammography 24 209237 Z12.31 Hypertensive disorder 38 438897 I10 [id number] MD BETSY Orozco MD [address] [place] [address], [place] [address] 11/28/2023 09:12:49 11/28/2023 11:23:07 Specialized medical examination 08502760 Z01.419 Screening for malignant neoplasm of rectum 810783166 Z12.12 Screening mammography 24 297037 Z12.31 Pain in pelvis 27943553 R10.2 [id number] MD BETSY Orozco MD [address] [place] [address], [place] [address] 12/09/2023 10:14:46 12/09/2023 13:44:24 Postmenopausal bleeding 10351421 N95.0 Health Concerns Section Related Observation LastModified by Organization Detai ls LastModified Time None Recorded Concern Status LastModified by Organization Details LastModified Time None Recorded Advance Directives Directive None Recorded Payers Encounter Date Sequence Insurance Name Policy Number Policy Barahona Covered Member ID Barahona Member ID Guarantor Name 05/30/2017 1 [facility] [id number] Fred Savage [id number] Vernell Savgae 06/03/2017 1 [facility] [id number] Fred Savage [id number] Vernell Savage 07/23/2018 1 [facility] [id number] Vernell Savage [id number] Vernell Savage 11/28/2023 1 [facility] [id number] Vernell Savage [id number] Vernell Savage 12/09/2023 1 [facility] [id number] Vernell Savage [id number] Vernell Savage Notes Date Note Type Note Provider Name and Address Organization Details Recorded Time 05/30/2017 text/html She is here for a problem visit as a new patient, she began the onset of bright red vaginal bleeding like a regular period, began 9 days ago, stopped bleeding yesterday, no bleeding today. Her last athletic agent exam was 6 years ago, that was her only single pap in her entire life. Betsy Godoy MD [address], [place], [address], [place] - [facility], 05/30/2017 11:18:50 06/03/2017 text/html She is here for annual exam, has not had a athletic agent exam since 2010. She had recent 7 [...] bleeding yesterday, no bleeding today. Her last athletic agent exam was 6 years ago, that was her only single pap in her entire life. She is haivng what appears to be PMB, however it could also represent, The last hurrah. [facility] FSH and serum estradiol levels. If pre [...] do an emb. Betsy Godoy MD [address], [place], [address], [place] - [facility], 06/03/2017 09:30:12 07/23/2018 text/html She is here for annual exam, is doing well. No menses since last visit. 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 Note from 2017: She is here for annual exam, has not had a athletic agent exam since 2010. She had recent 7 days of bleeding, her labs she she is not yet in menopause so no sonogram or emb is necessary at this time. Betsy Godoy MD [address], [place], [address], [place] - [facility], 07/23/2018 09:16:33 11/28/2023 text/html She is here [...] this year with eating better.Works at a [employer] shop in [place]. She has two artificial ponds with [place], this is her relaxation! Betsy Godoy MD [address], [place], [address], [place] - [facility], 11/28/2023 09:47:52 12/09/2023 text/html She is here [...] because of the pain. Betsy Godoy MD [address] [place] [address],[address], [place], [address], [place] - [facility], 12/09/2023 11:58:57 OBGyn Episode No OBEpisode recorded.
--- OUTSIDE RECORDS SUMMARY | 2024-12-20 11:21 | XMS_ITS | Clinical Summary ---
Author Organization [facility] Address [address] [place] [address] Care Team Providers Care Environmental Education Specialist Name Role Phone Mili Mondragon MD Primary Care Provider Unava ilable Allergies Active Allergy Reactions Severity Noted Date Comments Prednisone 02/16/2015 Tearfulness and jitteriness Hydrocodone-Acetaminophe n Rash/Dermatitis 12/28/2006 Medications Medication Sig Dispensed Refills Start Date End Date Status aspirin 325 MG tablet Take 325 mg by mouth daily as needed. 0 Active cetirizine (ZYRTEC) 10 MG tablet Take 1 Tab by mouth daily. 30 Tab 5 07/12/2018 Active fluticasone (FLONASE) 50 MCG/ACT nasal spray 2 sprays per nostril once daily 1 Bottle 0 07/12/2018 Active naproxen (NAPROSYN) 500 MG tablet Take 1 Tab by mouth 2 times daily (with meals). 60 Tab 0 07/12/2018 Active ALBUTEROL SULFATE (PROAIR HFA) 108 (90 Base) MCG/ACT Aero Soln Inhale 2 Puffs into the lungs every 4 hours as needed for Cough or Wheezing. 8.5 g 1 09/11/2020 Active Active Problems Problem Noted Date PMB (postmenopausal bleeding) 05/23/2017 Morbid obesity with BMI of 40.0-44.9, ad ult 10/04/2013 Raynaud's syndrome 11/20/2010 Family history of other cardiovascular d iseases 02/25/2006 Overview: IMO update Asthma 02/25/2006 Allergic rhinitis, cause unspecified 01/2006 Pure hypercholesterolemia 02/24/2006 Headache 02/24/2006 Immunizations Name Administration Dates Next Due TETANUS/DIPTHERIA (ADULT) 01/16/2004 Family History Medical History Relation Name Comments Hypertension Father dx 70's [place] Maternal Grandfather Cancer of the Breast Maternal Grandmother Diabetes Maternal Grandmother CABG Mother early 50's Cholesterol Level Mother [place] Mother 40's, 2nd [place] @ 77yo and Diabetes Paternal Grandmother Relation Name Status Comments Brother Alive healthy Father Alive HTN, 80's Maternal Grandfather dm Maternal Grandmother breast ca Mother (Age 72) heart fail ure; mi Paternal Grandfather Paternal Grandmother dm Social History Tobacco Use Types Packs/Day Years Used Date Smoking Tobacco: Never Smokeless Tobacco: Never Alcohol Use Standard Drinks/Week Comments No 0 (1 standard drink = 0.6 oz pur e alcohol) Sex Assigned at Date Recorded Not on file Last Filed Vital Signs Vital Sign Reading Time Taken Comments Blood Pressure 143/88 04/03/2019 1:38 PM EDT Pulse 102 04/03/2019 1:38 PM EDT Temperature 36.9 ??C (98.4 ??F) 04/03/2019 1:38 PM ED T Respiratory Rate 12 04/03/2019 1:38 PM EDT Oxygen Saturation 99% 10/14/2017 9:11 AM EST Inhaled Oxygen Concentration - - Weight 129.3 kg (285 lb) 04/03/2019 1:38 PM EDT Height 170.2 cm (5' 7 ) 04/03/2019 1:38 PM EDT Body Mass Index 44.64 04/03/2019 1:38 PM EDT Plan of Treatment Health Maintenance Due Date Last Done Comments Covid-19 Vaccine (#1) 1961 HEPATITIS C SCREENING 1979 DTAP/TDAP/TD (1 - Tdap) 1980 PNEUMOCOCCAL VACCINE FOR HIG H RISK PATIENTS (#1) 1980 BASELINE HEALTH EXAM 40-64 03/20/2008 03/20/2006, COLON CANCER SCREEN WITH STO OL CARD 2011 02/21/2004 SHINGLES VACCINE (1 of 2) 2011 CERVICAL CANCER SCREENING 07/15/2014 07/15/2011 CHOLESTEROL SCREENING 10/23/2015 10/23/2010, 006 MAMMOGRAM 07/15/2018 07/15/2017, 01/22, 07/17/2011, Additional history exists INFLUENZA (#1) 2024 BMI CHECK/ADVISE 09/22/2024 Care Teams Environmental Education Specialist Relationship Specialty Start Date End Date Mili Mondragon MD PCP - General 11/23/03
--- OUTSIDE RECORDS SUMMARY | 2024-12-20 11:21 | XMS_ITS | Encounter Summary ---
Author Organization [facility] Address [address] [place] [id number] Care Team Providers Care Green Building Materials Designer Name Role Phone Mili Mondragon MD Primary Care Provider Unava ilable Encounter Details Date Type Department Care Team Description 03/13/2015 [facility] Medical Records [address] [place] [address] Abstract, Provider Social History Tobacco Use Types [...] on filedocumented in this encounter Care Teams Green Building Materials Designer Relationship Specialty Start Date End Date Mili Mondragon MD PCP - General 11/23/03 documented as of this encounter
--- OUTSIDE RECORDS SUMMARY | 2024-12-20 11:21 | XMS_ITS | Encounter Summary ---
Author Organization [facility] Address [address] [place] [id number] Care Team Providers Care Service Parts Coordinator Name Role Phone Mili Mondragon MD Primary Care Provider Unava ilable Encounter Details Date Type Department Care Team Description 12/29/2014 [facility] Medical Records [address] [place] [address] Nikita Raines MD Social History Tobacco Use Types Packs/Day Years Used Date Smoking Tobacco: Never Alcohol Use Standard Drinks/Week Comments No 0 (1 standard drink = 0.6 oz pur e alcohol) Sex Assigned at Date Recorded Not on file documented as of this encounter Plan of Treatment Not on file documented as of this encounter Visit Diagnoses Not on filedocumented in this encounter Care Teams Service Parts Coordinator Relationship Specialty Start Date End Date Mili Mondragon MD PCP - General 11/23/03 documented as of this encounter
--- OUTSIDE RECORDS SUMMARY | 2024-12-20 11:21 | XMS_ITS | Encounter Summary ---
Author Organization [facility] Address [address] [place] [id number] Care Team Providers Care Signal Circuit Designer Name Role Phone Mili Mondragon MD Primary Care Provider Unava ilable Encounter Details Date Type Department Care Team Description 05/29/2017 Release of Information Medical Records [address] [place] [id number] Abstract, Provider Social History Tobacco Use Types [...] on filedocumented in this encounter Care Teams Signal Circuit Designer Relationship Specialty Start Date End Date Mili Mondragon MD PCP - General 11/23/03 documented as of this encounter
[2024-12-21 09:28] VITALS: BMI 41.9
== END 2024-12-20 10:57 | disposition home or self-care (01) ==
LOC: HO.ENCR 10:12
PROVIDERS: PCP Internal Medicine; Visit Provider Dietitian, Registered
DX: E11.65 Type 2 diabetes mellitus with hyperglycemia (principal)

== ENCOUNTER → 2024-12-20 10:11 | Outpatient (BNVA) | payer OTHER, SELFPAY | PROVIDERS: PCP Internal Medicine; Visit Provider Dietitian, Registered | DX: E11.65 Type 2 diabetes mellitus with hyperglycemia (principal); Z71.3 Dietary counseling and surveillance | CPT/HCPCS: 97803 ==

== ENCOUNTER 2025-01-17 10:03 | Outpatient (REF) | payer OTHER, SELFPAY ==
[2025-01-17 11:28] LABS: Estimated Average Glucose 154 mg/dL; Hemoglobin A1C 191.5714 umol/L; Total Hemoglobin (HGBA1C) 3594.9884 umol/L
--- OUTSIDE RECORDS SUMMARY | 2025-01-17 11:36 | XMS_ITS | Data Portability ---
Author Organization [place] - [facility],, BETSY GODOY MD Address [address] [address] Care Team Providers Care Gas Operation Manager Name Role Phone YEE SINHA Primary Care Provider Assessment No assessment recorded. Plan of Treatment Reminders Order Date Submit Date Provider Last Modified By Organization Details Last Modified Time Details Appointments None recorded. Lab biopsy, endometri al 2023 024 [email or web address] [facility] (Centralized Electronic Ordering - All Locations), Patient Can Go To The Location Of Their Choice, [id number] 4 07:42:51 pap test, thinprep, cervical 2023 024 [email or web address] [facility] (Centralized Electronic Ordering - All Locations), Patient Can Go To The Location Of Their Choice, [id number] 4 08:00:10 fecal occult blood, stool 2023 024 [email or web address] 1 In-Office Order, Internal Use Only DO Not Attach Compendium DO Not Attach Compendium, Do Not Delete/merge, [id number] 4 09:47:29 pap test, thinprep, cervical 2017 018 [facility], Cytopathology Service, [address] [facility], [place], [address], 8 16:57:32 fecal occult blood, stool 2017 018 [email or web address] In-Office Order, Internal Use Only DO Not Attach Compendium DO Not Attach Compendium, Do Not Delete/merge, [id number] 8 08:45:49 pap test, thinprep, cervical 2016 017 [facility], Cytopathology Service, [address] [place], [address], 7 13:20:58 fecal occult blood, stool 2016 017 [email or web address] 1 In-Office Order, Internal Use Only DO Not Attach Compendium DO Not Attach Compendium, Do Not Delete/merge, [id number] 7 09:28:34 FSH (follicle -stimulat ing hormone), serum 2016 017 LUDLOW [facility], [address] [place], [address], 7 04:22:28 estradiol , serum 2016 017 LUDLOW [facility] Drumm, [address] [place], [address], 7 04:22:26 Referral None recorded. Procedures biopsy, endometri um (PROC) 2023 024 frida In-Office Order, Internal Use Only DO Not Attach Compendium DO Not Attach Compendium, Do Not Delete/merge, [id number] 4 13:44:12 Surgeries None recorded. Imaging MAMMO, screening , digital, bilateral - Breast Aspiratio n and/or Biopsy if needed [address] [facility] ([facility]), [address] [place], [address], 4 14:36:05 US, pelvis, transabdo shauna + transvagi nal - recurrent midline, sharp, pelvic pain, new, over past two months [address] [facility] ([facility]), [address] [place], [address], 4 07:39:50 MAMMO, screening , digital, bilateral 2017 018 [email or web address] [facility] ([facility]), [address] [place], [address], 9 08:50:18 MAMMO, screening , digital, bilateral 2016 017 HARLEY [facility] ([facility]), [address] [place], [address], 7 12:21:58 Medication Orders None recorded. Patient TargetsNo targets recorded. Patient Instructions Encounter Date Encounter Id Patient Instructions Last Modified By Organization Details Last Modified Time 05/30/2017 [id number] vaginal bleeding after menopause: care instructions mike Not available 05/30/2017 09:55:43 She is here for a problem visit as a new patient, she began the onset of bright red vaginal bleeding like a regular period, began 9 days ago, stopped bleeding yesterday, no bleeding today. Her last medical assistant ob gyn exam was 6 years ago, that was [...] 45 minutes Not available 05/30/2017 11:18:30 06/03/2017 [id number] She is here for annual exam, has not had a medical assistant ob gyn exam since 2010. She had recent 7 [...] bleeding yesterday, no bleeding today. Her last medical assistant ob gyn exam was 6 years ago, that was [...] vasomotor symptoms. Not available 06/03/2017 09:29:52 07/23/2018 [id number] self breast exam education Not available 07/23/2018 09:15:57 She is here for annual exam, is doing well. No menses since last visit. No significant vasomotor symptoms. Notes 8 pound weight loss this year with eating better. Works at a [employer] in [place]. She has two artificial ponds with [place], this is her relaxation! Note from 2017: She is here for annual exam, has not had a medical assistant ob gyn exam since 2010. She had recent 7 [...] questions answered. Not available 07/23/2018 09:16:14 11/28/2023 [id number] learning about healthy weight [email or web address] Not available [...] year with eating better. 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 She has two artificial ponds with [place], this is her relaxation! __ She appears [...] the breast. Not available 11/28/2023 09:47:25 12/09/2023 [id number] postmenopausal bleeding information [email or web address] Not available 12/09/2023 11:55:54 endometrial biop sy: about this test [employer] Not available 12/09/2023 11:55:55 She is here [...] DO Not Attach Compendium, Do Not Delete/merge, [id number] 07/23/2018 08:35:30 06/03/20 17 06/03/2017 fecal occul t blood , stool Occult Blood negati ve Not Available In-Office Order Internal Use Only DO Not Attach Compendium DO Not Attach Compendium, Do Not Delete/merge, [id number] 06/03/2017 08:55:19 05/30/20 17 05/30/2017 estra diol, serum comments [facility] [address] [facility] [place] [address] [phone] Not Available [facility] [address] [place], [address], 05/31/2017 04:22:26 05/30/20 17 05/30/2017 estra diol, [...] - 58.3 Not Available [facility] [address] [place], [address], 05/31/2017 04:22:26 05/30/20 17 05/30/2017 FSH (foll icle- stimu latin g hormo ne), serum comments [facility] [address] [facility] [address] Diony [place] [address] [phone] Not Available [facility] [address] [place], [address], 05/31/2017 04:22:28 05/30/20 17 05/30/2017 FSH (foll [...] - 132.2 Not Available [facility] [address] [place], [address], 05/31/2017 04:22:28 06/03/20 17 06/03/2017 pap, LB [id number] ThinP rep Pap, Image d: NEGAT JULIA FOR SQUAM OUS INTRA EPITH ELIAL LESIO N AND CHARITY ELLIS . Nancy Fritz, CT( CP) (Case elect liat curiel gopi d 06 04 2017) ADEQU ACY: Satis facto ry. Endoc ervic al/tr ansfo rmati on zone compo nent absen t. [facility] Pap HPV IF Ascus : Refle x 16 and 18, Cervi shanthi, Image d: CLINI SHANTHI INFOR MATIO N: HPV If Diagn osis of ASCUS . Z12.4 , V72.3 1, Z01.4 19 Not Available [facility], Cytopathology Service [address] [place], [address], 06/04/2017 13:20:58 07/23/20 18 07/23/2018 pap, LB [id number] ThinP rep Pap, Image d: NEGAT JULIA [...] neg, z12.4 , z01.4 19 Not Available [facility] Cytopathology Service [address] [facility], [place], [address], 07/24/2018 16:57:32 11/28/19 24 12/04/2023 IGP, RFX APTIM A HPV ASCU diagnosis: Jose t NEGAT JULIA FOR INTRA EPITH ELIAL LESIO N OR CHARITY ELLIS . Not Available [facility] ([facility]) [address] [place], [address], 12/04/2023 12:06:33 11/28/19 24 12/04/2023 IGP, RFX APTIM A HPV ASCU specimen adequacy: Jose t Satis facto ry for evalu ation . No endoc ervic al compo nent is ident ified . Not Available [facility] ([facility]) [address] [place], [address], 12/04/2023 12:06:33 11/28/19 24 12/04/2023 IGP, RFX APTIM A HPV ASCU clinician provided ICD10: Jose clarke Z01.4 19 Not Available [facility] ([facility]) [address] [place], [address], 12/04/2023 12:06:33 11/28/19 24 12/04/2023 IGP, RFX APTIM A HPV ASCU performed by: Jose hernandez, Cytot rochelle clarke (ASCP ) Not Available [facility] ([facility]) [address] [facility], [place], [place], [address], 12/04/2023 12:06:33 11/28/19 24 12/04/2023 IGP, RFX APTIM A HPV ASCU . . Not Available [facility] ([facility]) [address] [facility], [place], [place], [address], 12/04/2023 12:06:33 11/28/19 24 12/04/2023 IGP, RFX [...] ts do occur . Not Available [facility] ([facility]) [address] [facility], [place], [place], [address], 12/04/2023 12:06:33 11/28/19 24 12/04/2023 IGP, RFX APTIM A HPV ASCU test methodology: Commen t This liqui d based ThinP rep(R ) pap test was scree kyle with the use of an image guide d syste m. Not Available [facility] ([facility]) [address] [facility], [place], [place], [address], 12/04/2023 12:06:33 11/28/19 24 12/04/2023 IGP, RFX APTIM A HPV ASCU . Commen t The HPV DNA refle x crite fredrick were not met with this speci men resul t there fore, no HPV testi ng was perfo rmed. Not Available [facility] ([facility]) [address] [facility], [place], [place], [address], 12/04/2023 12:06:33 11/28/19 24 11/28/2023 fecal occul t blood , stool Occult Blood negati ve Not Available In-Office Order Internal Use Only DO Not Attach Compendium DO Not Attach Compendium, Do Not Delete/merge, [id number] 11/28/2023 09:16:39 12/09/19 24 12/09/2023 [facility] [...] Avenu e, Dotty grier [place] (CLIA #[id number]). Its perfo rmanc e telma cteri stics are deter mined by [employer]. Phone #: [phone], On-[place] ll Patho logis t: [id number] Not Available [facility] (Centralized Electronic Ordering - All Locations) Patient Can Go To The Location Of Their Choice, [id number] 12/11/2023 15:46:25 07/15/20 17 07/15/2017 MAMMO , scree betina, digit al, bilat eral No observ ation record ed. Not Available 06/23 12:24:58 12/03/19 24 12/02/2023 US, pelvi s, trans abdom inal + trans vagin al No observ ation record ed. [email or web address] [facility] [address] [facility], [place], [address], 12/09/2023 10:18:09 02/18/20 24 02/18/2024 MAMMO , scree betina, digit al, bilat eral No observ ation record ed. [facility] [address], [place], [address], 02/19/2024 07:51:20 Result Notes None recorded. Problems Name Problem SNOMED Code Status Onset Date Resolution Date Notes Provider Name and Address Organization Details Recorded Time Asthma 619279487 Active 2016 TNONY Zheng in [facility], 7 11:45:24 Raynaud's disease 766516482 Active 2016 TONNY Zheng in [facility], 7 11:45:41 Hypercholester olemia 71019690 Active 2016 TONNY Zheng in [facility], 7 11:46:02 Postmenopausal bleeding 92912528 Active 2016 TONNY Zheng in [facility], 7 11:46:22 Headache 20310448 Active 2016 TONNY Zheng in [facility], 7 11:46:44 Morbid obesity 171082725 Active 2016 TONNY Zheng in [facility], 7 11:47:05 Hypertensive disorder 47721193 Active 2017 Betsy Godoy MD [address] [facility], [place], [address], [place] - [facility], 8 09:15:52 Problem Notes None recorded. Procedures Surgical History Date Name Laterality Status Provider Name and Address Organization Details Recorded Time 12/09/19 Endometrial Biopsy completed Betsy Godoy MD [address] [facility],[address], [place], [address], [place] - [facility], 12/09/2023 11:58:24 Tonsillectomy completed Annamarie Lanejustina Beach in [facility], 05/27/2017 11:48:02 Imaging Results Imaging Date Name Status LastModified by Organization Details LastModified Time 07/15/2017 MAMMO, screening, digital, bilateral completed Information not available 07/15/2017 12:24:58 12/02/2023 US, pelvis, transabdominal + transvaginal completed [facility] [address] [facility], [place], [address], 12/09/2023 10:18:09 02/18/2024 MAMMO, screening, digital, bilateral completed [facility] [address] [facility] [address], [place], [address], 02/19/2024 07:51:20 Procedure Notes None recorded. Medical Equipment None Reported. Allergies Allergen ID Allergen Name Allergen Category Reaction Reaction Severity Criticality Documentation Date Start Date Code Code System Note Provider Name and Address Organization Details Recorded Time prednison e medicatio n other Not available Not available 05/27/2017 8640 RxNorm tearf mandie ss & mohini lomas s TONNY Zheng in [facility], 7 11:44:09 acetamino phen / hydrocodo ne medicatio n rash Not available Not available 05/27/201775060 2 RxNorm [place] Zheng in [facility], 11:44:32 lisinopri l medicatio n cough Not available Not available 07/23/2018 97290 RxNorm Janna [place] Cain in [facility], 8 08:33:27 Medications Name Sig Start [...] Address Organization Details Last Updated DateTime 7 923978. 35 g 44.7 kg/m2 171.45 cm 71 /min 174 mm[Hg] 84 mm[Hg] Janna Beach in [facility], 7 09:00:59 Date Recorded Body height Body mass index (BMI) Body weight Heart rate Systolic blood pressure Diastolic blood pressure Provider Name and Address Organization Details Last Updated DateTime 7 171.45 cm 44.5 kg/m2 090196. 32 g 74 /min 151 mm[Hg] 87 mm[Hg] Janna Beach in [facility], 7 08:54:18 Date Recorded Body weight Body mass index (BMI) Body height Heart rate Systolic blood pressure Diastolic blood pressure Provider Name and Address Organization Details Last Updated DateTime 8 880133. 46 g 43.4 kg/m2 171.45 cm 70 /min 176 mm[Hg] 83 mm[Hg] Janna Beach in [facility], 8 08:31:09 Date Recorded Body height Body mass index (BMI) Body weight Heart rate Systolic blood pressure Diastolic blood pressure Provider Name and Address Organization Details Last Updated DateTime 4 170.18 cm 45.6 kg/m2 356927. 38 g 76 /min 147 mm[Hg] 80 mm[Hg] Janna Beach in [facility], 4 09:18:52 Date Recorded Body height Body mass index (BMI) Body weight Heart rate Systolic blood pressure Diastolic blood pressure Provider Name and Address Organization Details Last Updated DateTime 4 170.18 cm 46 kg/m2 093342 g 88 /min 165 mm[Hg] 88 mm[Hg] jennifer Beach in [facility], 4 10:21:29 Social History Question Answer Notes LastModified by Organizat ion Details LastModified Time Tobacco Smoking Status Never Smoker Not Available [facility] 07/25/2020 03:19:41 What Is Your Level Of Alcohol Consumption? Occasional [id number] Information not available 07/25/2020 How Many Years Have You Consumed Alcohol? 40 Information not available 11/28/2023 What Is Your Level Of Caffeine Consumption? Moderate [id number] Information not available 07/25/2020 In The 14 [...] Type Of Diet Are You Following? REGULAR [id number] Information not available 07/25/2020 Which Illicit Or Recreational Drugs Have You Used? No [id number] Information not available 07/25/2020 Do You Reside In Or Have You Traveled To An Area Where Ebola Virus Transmission Is Active? No [id number] Information not available 07/25/2020 Education 4 Year College Informatio n not available 05/30/2017 What Is The Highest Grade Or Level Of School You Have Completed Or The Highest Degree You Have Received? [id number] Information not available 11/28/2023 Who Is Your Employer? 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 [id number] Information not available 07/25/2020 How Many Days [...] available 11/28/2023 Are You Sexually Active? Yes [id number] Information not available 07/25/2020 How Much Tobacco Do You Smoke? No [id number] Information not available 07/25/2020 General Stress Level High Information not available 05/30/2017 Do You Feel Stressed (tense, Restless, Nervous, Or Anxious, Or Unable To Sleep At Night)? [id number] Information not available 11/28/2023 Do You Use Any Illicit Or Recreational Drugs? No Information not available 11/28/2023 How Many Years Have You Smoked Tobacco? 0 [id number] Information not available 07/25/2020 Have You Recently [...] Time What is your exercise level? Occasional [id number] Information not available 07/25/2020 Mental Status None [...] for MyRisk panel N Autoimmune Condition Y Lung Disease Y Depression N Defects or Inherited Disease N History of Ovarian Cancer N BRCA testing in past N Anxiety Disorder N Arthritis N Infertility N History of Cancer N Endometriosis N Thyroid Problems N Kidney or Bladder Problems N GI Problems N Anemia N History of Breast Cancer N COREEN exposure N Osteopenia N Psychiatric Illness N Diabetes N Headaches or Migraines Y Asthma Y Hepatitis N Heart Disease N Hypertension N [...] SNOMED-CT Code Diagnosis ICD10 Code Diagnosis Note [id number] MD BETSY Orozco MD [address] [facility] [address] [place] [address] 05/30/2017 08:45:48 05/30/2017 11:52:09 Postmenopausal bleeding 59287927 N95.0 [id number] MD BETSY Orozco MD [address] [place] [address],[place] [address] 06/03/2017 08:44:45 06/03/2017 11:33:17 Specialized medical examination 94485181 Z01.419 Screening for malignant neoplasm of rectum 725839326 Z12.12 Screening mammography 24 209732 Z12.31 [id number] MD BETSY Orozco MD [address] [place] [address], [place] [address] 07/23/2018 08:18:13 07/23/2018 12:05:41 Specialized medical examination 78288170 Z01.419 Screening for malignant neoplasm of rectum 345943458 Z12.12 Screening mammography 24 831073 Z12.31 Hypertensive disorder 38 963664 I10 [id number] MD BETSY Orozco MD [address] [place] [address], [place] [address] 11/28/2023 09:12:49 11/28/2023 11:23:07 Specialized medical examination 31904226 Z01.419 Screening for malignant neoplasm of rectum 607325448 Z12.12 Screening mammography 24 055691 Z12.31 Pain in pelvis 65479083 R10.2 [id number] MD BETSY Orozco MD [address] [place] [address], [place] [address] 12/09/2023 10:14:46 12/09/2023 13:44:24 Postmenopausal bleeding 77726270 N95.0 Health Concerns Section Related Observation LastModified by Organization Detai ls LastModified Time None Recorded Concern Status LastModified by Organization Details LastModified Time None Recorded Advance Directives Directive None Recorded Payers Encounter Date Sequence Insurance Name Policy Number Policy [place] Covered Member ID [place] Member ID Guarantor Name 05/30/2017 1 [facility] [id number] Fred Savage [id number] Vernell Savage 06/03/2017 1 [facility] [id number] Fred Savage [id number] Vernell Savage 07/23/2018 1 [facility]) [id number] Vernell Savage [id number] Vernell Savage 11/28/2023 1 [facility] [id number] Vernell Savage [id number] Vernell Savage 12/09/2023 1 [facility] [id number] Vernell Savage [id number] Vernell Savage Notes Date Note Type Note Provider Name and Address Organization Details Recorded Time 05/30/2017 text/html She is here for a problem visit as a new patient, she began the onset of bright red vaginal bleeding like a regular period, began 9 days ago, stopped bleeding yesterday, no bleeding today. Her last medical assistant ob gyn exam was 6 years ago, that was her only single pap in her entire life. Betsy Godoy MD [address], [place], [address], [place] - [facility], 05/30/2017 11:18:50 06/03/2017 text/html She is here for annual exam, has not had a medical assistant ob gyn exam since 2010. She had recent 7 [...] bleeding yesterday, no bleeding today. Her last medical assistant ob gyn exam was 6 years ago, that was her only single pap in her entire life. She is haivng what appears to be PMB, however it could also represent, The last hurrah. [facility] FSH and serum estradiol levels. If pre [...] MD [address], [place], [address], [place] - [facility], 06/03/2017 09:30:12 07/23/2018 text/html She is here for annual exam, is doing well. No menses since last visit. 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 Note from 2017: She is here for annual exam, has not had a medical assistant ob gyn exam since 2010. She had recent 7 days of bleeding, her labs she she is not yet in menopause so no sonogram or emb is necessary at this time. Betsy Godoy MD [address], [place], [address], [place] - [facility], 07/23/2018 09:16:33 11/28/2023 text/html She is [...] this year with eating better.Works at a [employer] shop in [place]. She has two artificial ponds with [place], this is her relaxation! Betsy Godoy MD [address], [place], [address], [place] - [facility], 11/28/2023 09:47:52 12/09/2023 text/html She is [...] because of the pain. Betsy Godoy MD [address] [place] [address],[address], [place], [address], [place] - [facility], 12/09/2023 11:58:57 OBGyn Episode No OBEpisode recorded.
--- OUTSIDE RECORDS SUMMARY | 2025-01-17 11:36 | XMS_ITS | Clinical Summary ---
Author Organization [facility] Address [address] [place] [address] Care Team Providers Care Service Desk Analyst Name Role Phone Mili Mondragon MD Primary [...] Relation Name Comments Hypertension Father dx 70's [place] Maternal Grandfather Cancer of the Breast Maternal Grandmother Diabetes Maternal Grandmother CABG Mother early 50's Cholesterol Level Mother [place] Mother 40's, 2nd [place] @ 77yo and Diabetes Paternal Grandmother Relation [...] 07/15/2018 07/15/2017, 01/22, 07/17/2011, Additional history exists BMI CHECK/ADVISE 09/22/2024 INFLUENZA (Season Ended) 2025 Care Teams Service Desk Analyst Relationship Specialty Start Date End Date Mili Mondragon MD PCP - General 11/23/03
--- OUTSIDE RECORDS SUMMARY | 2025-01-17 11:36 | XMS_ITS | Encounter Summary ---
Author Organization [facility] Address [address] [place] [address] Care Team Providers Care Chain Person Name Role Phone Mili Mondragon MD Primary Care Provider Unava ilable Encounter Details Date Type Department Care Team Description 03/13/2015 [facility] Medical Records [address] [place] [address] Abstract, Provider Social History Tobacco Use Types [...] on filedocumented in this encounter Care Teams Chain Person Relationship Specialty Start Date End Date Mili Mondragon MD PCP - General 11/23/03 documented as of this encounter
--- OUTSIDE RECORDS SUMMARY | 2025-01-17 11:36 | XMS_ITS | Encounter Summary ---
Author Organization [facility] Address [address] [place] [address] Care Team Providers Care Regional Safety Manager Name Role Phone Mili Mondragon MD Primary Care Provider Unava ilable Encounter Details Date Type Department Care Team Description 12/29/2014 [facility]S Studies Lecturer Report Medical Records [address] [place] [address] Nikita Raines MD Social History Tobacco Use [...] on filedocumented in this encounter Care Teams Regional Safety Manager Relationship Specialty Start Date End Date Mili Mondragon MD PCP - General 11/23/03 documented as of this encounter
[2025-01-17 14:27] LABS: Anion Gap 13 (12-20); Blood Urea Nitrogen 20 mg/dL (9-16); Calcium 9.5 mg/dL (8.4-10.2); Carbon Dioxide 29 mmol/L (22-29); Chloride 101 mmol/L (96-108); Estimated Glomerular Filt Rate > 60; Glucose Random 157 mg/dL (60-115); Potassium 4.1 mmol/L (3.3-5.1); Sodium 139 mmol/L (135-145)
[2025-01-17 14:48] LABS: TSH reflex Free T4 3.14 uIU/mL (0.32-4.0)
== END 2025-01-17 10:04 | disposition home or self-care (01) ==
LOC: HO.WFDLDS 10:03
PROVIDERS: Visit Provider Internal Medicine
DX: E11.65 Type 2 diabetes mellitus with hyperglycemia (principal); I10 Essential (primary) hypertension; E78.2 Mixed hyperlipidemia
CPT/HCPCS: 36415; 80048; 83036; 84443

== ENCOUNTER 2025-01-25 14:54 | Outpatient (AMB) | payer OTHER, SELFPAY ==
--- NOTE | 2025-01-25 15:16 | MHC.PC.OV ---
Vital Signs 01/25/25 15:19 Height 5 ft 9 in Weight 291 lb 6 oz BMI 43.0 BP 137/63 Blood Pressure Location Lt brachial Position Sitting Pulse 69 Pulse Source Pulse Oximeter Pulse Oximetry (%) 98 Oxygen Delivery Method Room Air Intake Visit Reasons: dm follow up Intake Note: Diabetes follow up Production Associate Required: No Allergies hydrocodone [From Vicodin] Allergy (Severe, Verified 01/25/25 15:16) Unknown lisinopril Allergy (Severe, Verified 01/25/25 15:16) Difficulty Breathing prednisolone Allergy (Severe, Verified 01/25/25 15:16) Unknown Tobacco use date assessed: 07/02/24 Dental Screening Dental Screen Date: 01/25/25 Did you have a dental visit in the last 12 months?: Yes Did you have a dental problem in the last 6 months where you did not have access to dental care?: No HPI HPI Comments History of Present Illness Details 64-year-old female with a past medical history of allergies/allergic rhinitis, asthma, recurrent sinusitis, Raynaud's, obesity, hyperlipidemia, diabetic range A1C presenting for follow up A1C 7.0% from 6.8%. Extremely frustrated by weight gain despite careful diet. She is eating less than 1000 kcal daily. She is super stressed at work. 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 Only sleeping a few hours per night. She has seen the diabetic exploitation analyst and changed her diet. She has been able to lose weight since her last A1C. She has a visit upcoming for repeat. is diabetic so has some knowledge. Discussed various treatment options. Wants 3 months to start exercising and wants to see diabetic exploitation analyst. Would consider medications if not improved thereafter. LDL has improved but still high especially in light of diabetes. CV: On chlorthalidone 25 mg a day for hypertension, furosemide prn LE swelling. Controlled. Refuses statin therapy. She has intermittent leg swelling/fluid retention when she works 12 hour shifts. Not eating added salt. Denies shortness of breath Asthma/HGB: On Zyrtec, Flonase, albuterol. History of fluid-filled blisters, bullous pemphigoid, 2019 in about 10/11/2022. No interval issues. History of stable pulmonary nodules. Last CT 01/2023-no follow up needed Mammo 01/2024 Cologuard 02/28/2023 ROS see HPI PHYSICAL EXAM: GENERAL: Alert and oriented x 3. NAD EYES: EOMI. Anicteric. HENT: Moist mucous membranes. No scleral icterus. No cervical lymphadenopathy. LUNGS: Clear to auscultation bilaterally. CARDIOVASCULAR: Regular rate and rhythm. No murmur. No JVD. ABDOMEN: Soft, non-tender +bs EXTREMITIES: No edema. Non-tender. SKIN: No rashes or lesions. Warm. NEUROLOGIC: No focal neurological deficits. CN II-XII grossly intact PSYCHIATRIC: Cooperative. Appropriate mood and affect [facility] Medical History Severe obesity Seasonal allergies Prediabetes Hyperlipidemia Asthma Surgical History Hx of tonsillectomy Family History Brother Heart disease Mother Heart disease Hypertension Father Heart disease Hypertension Social History Household Members: Spouse Housing: House Are you a primary pet care worker to a significant other at home: No Do you presently have visiting nurse or other home services: No 75 years or older and lives alone: No Alcohol intake: current Alcohol intake frequency: a few times a month Patient Tobacco Use Status: Never used Tobacco e-Cigarette/Vaping Use: Never Used Second Hand Smoke Exposure: No service: No Current occupational status: employed 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 Cognitive needs: No Hearing needs: No Vision needs: Yes (will be seeing eye doctor) Questionnaire Thrive Questionnaire Date Thrive assessed: 10/22/24 I am a: Patient What is your living situation today?: I have a steady place to live Within the past 12 months, did the food you bought not last and you didn't have the money to get more?: Never true Within the past 12 months, did you worry whether your food would run out before you got money to buy more?: Never true Do you have trouble paying for medicines?: I choose not to answer this question Do you have trouble getting transportation to medical appointments?: No Do you have trouble paying your heating and electricity bill?: I choose not to answer this question Do you have trouble taking care of your child, family member or friend?: No Do you have trouble with day-to-day activities such as bathing, preparing meals, shopping, managing finances, etc.?: No Are you currently unemployed and looking for a job?: No Are you interested in more education?: No Please select the resources that you would like help with: None Currently or been in a relationship where the following occur: No concerns reported THRIVE Score: 0 AUDIT C Alcohol Use Questionnaire (AUDIT-C) 1. How often do you have a drink containing alcohol?: Monthly or less 2. How many drinks containing alcohol do you have on a typical day when you are drinking?: 1 or 2 3. How often do you have six or more drinks on one occasion?: Never Total Score: 1 FARHEEN-7 AMB Questionnaire FARHEEN-7 Date FARHEEN - 7 assessed: 10/22/24 Source: Developed by Drs. Dawood Lopez, Gisela Cornelius, Derek Oates and colleagues, with an educational wilbur from [employer]. Physical exam (Primary Care) Vital Signs: Last Vital Signs Pulse 69 01/25/25 15:19 BP 137/63 01/25/25 15:19 Pulse Ox 98 01/25/25 15:19 Oxygen Delivery Method Room Air 01/25/25 15:19 BMI result Body Mass Index 43.0 Tobacco/Smoking Status: Tobacco use Status Tobacco use date assessed 07/02/24 01/25/25 15:18 Patient Tobacco Use Status Never used Tobacco 01/25/25 15:18 e-Cigarette/Vaping Use Never Used 01/25/25 15:18 Thrive Assessment: Date of Thrive Assessment Date Thrive assessed 10/22/24 01/25/25 15:18 Currently or been in a relationship where the following occur: No concerns reported Coding Level of Care Code Est Pt Level 4 (27985) Diagnoses Type 2 diabetes mellitus with hyperglycemia, without long-term current use of insulin E11.65 Diabetes mellitus complication status: with hyperglycemia Diabetes mellitus long term acute care registered nurse insulin use: without long term acute care registered nurse use Primary hypertension I10 Hypertension type: primary hypertension Mixed hyperlipidemia E78.2 Hyperlipidemia type: mixed hyperlipidemia Prediabetes R73.03 Assessment & Plan Assessment & Plan (1) Type 2 diabetes mellitus: Code(s): E11.9 - Type 2 diabetes mellitus without complications Category: Medical Qualifiers: Diabetes mellitus complication status: with hyperglycemia Diabetes mellitus long term acute care registered nurse insulin use: without residential use Qualified Code(s): E11.65 - Type 2 diabetes mellitus with hyperglycemia (2) Hypertension: Code(s): I10 - Essential (primary) hypertension Category: Medical Qualifiers: Hypertension type: primary hypertension Qualified Code(s): I10 - Essential (primary) hypertension (3) Hyperlipidemia: Code(s): E78.5 - Hyperlipidemia, unspecified Category: Medical Qualifiers: Hyperlipidemia type: mixed hyperlipidemia Qualified Code(s): E78.2 - Mixed hyperlipidemia (4) Prediabetes: Code(s): R73.03 - Prediabetes Category: Medical Plan Reviewed A1C, diet Discussed increasing caloric intake, smaller more frequent meals Needs to increase sleep, decrease stress. Encouraged her to talk to her about cutting back on workload/hours. Blood pressure is well controlled Follow up in 3 months or sooner as needed Orders: Orders Hemoglobin A1c 3 Months E11.65 - Type 2 diabetes mellitus with hyperglycemia, I10 - Essential (primary) hypertension Comprehensive Met. Panel 3 Months E11.65 - Type 2 diabetes mellitus with hyperglycemia, I10 - Essential (primary) hypertension Cortisol Random 3 Months E11.65 - Type 2 diabetes mellitus with hyperglycemia, I10 - Essential (primary) hypertension
[2025-01-25 15:19] VITALS: BP 137/63; PULSE 69; O2SAT 98; BMI 43.0
--- OUTSIDE RECORDS SUMMARY | 2025-01-25 16:09 | XMS_ITS | Data Portability ---
Author Organization [place] - [facility],, BETSY GODOY MD Address [address] [address] Care Team Providers Care Switch Crew Supervisor Name Role Phone YEE SINHA Primary Care Provider [phone] Assessment No assessment recorded. Plan of Treatment Reminders Order Date Submit Date Provider Last Modified By Organization Details Last Modified Time Details Appointments None recorded. Lab biopsy, endometri al 2023 024 [email or web address] [facility] (Centralized Electronic Ordering - All Locations), Patient Can Go To The Location Of Their Choice, [id number] 4 07:42:51 pap test, thinprep, cervical 2023 024 [email or web address] [facility] (Centralized Electronic Ordering - All Locations), Patient Can Go To The Location Of Their Choice, [id number] 4 08:00:10 fecal occult blood, stool 2023 024 [email or web address] 1 In-Office Order, Internal Use Only DO Not Attach Compendium DO Not Attach Compendium, Do Not Delete/merge, [id number] 4 09:47:29 pap test, thinprep, cervical 2017 018 [facility], Cytopathology Service, [address] [facility], [place], [address], 8 16:57:32 fecal occult blood, stool 2017 018 [email or web address] In-Office Order, Internal Use Only DO Not Attach Compendium DO Not Attach Compendium, Do Not Delete/merge, [id number] 8 08:45:49 pap test, thinprep, cervical 2016 017 [facility], Cytopathology Service, [address] [place], [address], 7 13:20:58 fecal occult blood, stool 2016 017 [email or web address] 1 In-Office Order, Internal Use Only DO Not Attach Compendium DO Not Attach Compendium, Do Not Delete/merge, [id number] 7 09:28:34 FSH (follicle -stimulat ing hormone), serum 2016 017 [facility]K [employer], [address] [place], [address], 7 04:22:28 estradiol , serum 2016 017 [facility] [employer], [address] [place], [address], 7 04:22:26 Referral None recorded. Procedures biopsy, endometri um (PROC) 2023 024 [email or web address] In-Office Order, Internal Use Only DO Not Attach Compendium DO Not Attach Compendium, Do Not Delete/merge, [id number] 4 13:44:12 Surgeries None recorded. Imaging MAMMO, screening , digital, bilateral - Breast Aspiratio n and/or Biopsy if needed 2023 024 [facility] ([facility]), [address] [place], [address], 4 14:36:05 US, pelvis, transabdo shauna + transvagi nal - recurrent midline, sharp, pelvic pain, new, over past two months 2023 024 [facility] ([facility]), [address] [place], [address], 4 07:39:50 MAMMO, screening , digital, bilateral 2017 018 carmela [facility] ([facility]), [address] [place], [address], 9 08:50:18 MAMMO, screening , digital, bilateral 2016 017 HARLEY [facility] ([facility]), [address] [place], [address], 7 12:21:58 Medication Orders None recorded. Patient TargetsNo targets recorded. Patient Instructions Encounter Date Encounter Id Patient Instructions Last Modified By Organization Details Last Modified Time 05/30/2017 [id number] vaginal bleeding after menopause: care instructions mike Not available 05/30/2017 09:55:43 She is here for a problem visit as a new patient, she began the onset of bright red vaginal bleeding like a regular period, began 9 days ago, stopped bleeding yesterday, no bleeding today. 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 She had recent 7 [...] bleeding yesterday, no bleeding today. Her last [place] exam was 6 years ago, that was [...] vasomotor symptoms. Not available 06/03/2017 09:29:52 07/23/2018 [id number] self breast exam education Not available 07/23/2018 09:15:57 She is here for annual exam, is doing well. No menses since last visit. No significant vasomotor symptoms. Notes 8 pound weight loss this year with eating better. Works at a [employer] in [place]. She has two artificial ponds with choctaw, this is her relaxation! Note from 2017: She is here for annual exam, has not had a [place] coastal waters exam since 2010. She had recent 7 [...] questions answered. Not available 07/23/2018 09:16:14 11/28/2023 [id number] learning about healthy weight [email or web address] Not available [...] year with eating better. Works at a [employer] shop in [place]. She has two artificial ponds with choctaw, this is her relaxation! __ She appears [...] the breast. Not available 11/28/2023 09:47:25 12/09/2023 [id number] postmenopausal bleeding information [email or web address] Not available 12/09/2023 11:55:54 endometrial biop sy: about this test [facility] Not available 12/09/2023 11:55:55 She is here [...] DO Not Attach Compendium, Do Not Delete/merge, [id number] 07/23/2018 08:35:30 06/03/20 17 06/03/2017 fecal occul t blood , stool Occult Blood negati ve Not Available In-Office Order Internal Use Only DO Not Attach Compendium DO Not Attach Compendium, Do Not Delete/merge, [id number] 06/03/2017 08:55:19 05/30/20 17 05/30/2017 estra diol, serum comments [facility] [address] [facility] [place] [address] [phone] Not Available [facility] [address] [place], [address], 05/31/2017 04:22:26 05/30/20 17 05/30/2017 estra diol, [...] - 58.3 Not Available [facility] [address] [place], [address], 05/31/2017 04:22:26 05/30/20 17 05/30/2017 FSH (foll icle- stimu latin g hormo ne), serum comments [facility] [address] [facility] Diony [place] [address] [phone] Not Available [facility] [address] [place], [address], 05/31/2017 04:22:28 05/30/20 17 05/30/2017 FSH (foll [...] - 132.2 Not Available [facility] [address] [place], [address], 05/31/2017 04:22:28 06/03/20 17 06/03/2017 pap, LB [id number] ThinP rep Pap, Image d: NEGAT JULIA FOR SQUAM OUS INTRA EPITH ELIAL LESIO N AND CHARITY ELLIS . Nancy Fritz, CT( CP) (Case elect liat curiel gopi d 06 04 2017) ADEQU ACY: Satis facto ry. Endoc ervic al/tr ansfo rmati on zone compo nent absen t. [facility]: [facility] Pap HPV IF Ascus : Refle x 16 and 18, Cervi shanthi, Image d: CLINI SHANTHI INFOR MATIO N: HPV If Diagn osis of ASCUS . Z12.4 , V72.3 1, Z01.4 19 Not Available [facility], Cytopathology Service [address] [place], [address], 06/04/2017 13:20:58 07/23/20 18 07/23/2018 pap, LB [id number] ThinP rep Pap, Image d: NEGAT JULIA [...] neg, z12.4 , z01.4 19 Not Available [facility], Cytopathology Service [address] [facility], [place], [address], 07/24/2018 16:57:32 11/28/19 24 12/04/2023 IGP, RFX APTIM A HPV ASCU diagnosis: Jose t NEGAT JULIA FOR INTRA EPITH ELIAL LESIO N OR CHARITY ELLIS . Not Available [facility] ([facility]) [address] [place], [address], 12/04/2023 12:06:33 11/28/19 24 12/04/2023 IGP, RFX APTIM A HPV ASCU specimen adequacy: Jose t Satis facto ry for evalu ation . No endoc ervic al compo nent is ident ified . Not Available [facility] ([facility]) [address] [place], [address], 12/04/2023 12:06:33 11/28/19 24 12/04/2023 IGP, RFX APTIM A HPV ASCU clinician provided ICD10: Jose clarke Z01.4 19 Not Available [facility] ([facility]) [address] [place], [address], 12/04/2023 12:06:33 11/28/19 24 12/04/2023 IGP, RFX APTIM A HPV ASCU performed by: Jose hernandez, Cytot rochelle clarke (ASCP ) Not Available [facility] ([facility]) [address] [facility], [place], [address], 12/04/2023 12:06:33 11/28/19 24 12/04/2023 IGP, RFX APTIM A HPV ASCU . . Not Available [facility] ([facility]) [address] [facility], [place], [address], 12/04/2023 12:06:33 11/28/19 24 12/04/2023 IGP, RFX [...] ts do occur . Not Available [facility] ([facility]) [address] [facility], [place], [address], 12/04/2023 12:06:33 11/28/19 24 12/04/2023 IGP, RFX APTIM A HPV ASCU test methodology: Commen t This liqui d based ThinP rep(R ) pap test was scree kyle with the use of an image guide d syste m. Not Available [facility] ([facility]) [address] [facility], [place], [address], 12/04/2023 12:06:33 11/28/19 24 12/04/2023 IGP, RFX APTIM A HPV ASCU . Commen t The HPV DNA refle x crite fredrick were not met with this speci men resul t there fore, no HPV testi ng was perfo rmed. Not Available [facility] ([facility]) [address] [facility], [place], [address], 12/04/2023 12:06:33 11/28/19 24 11/28/2023 fecal occul t blood , stool Occult Blood negati ve Not Available In-Office Order Internal Use Only DO Not Attach Compendium DO Not Attach Compendium, Do Not Delete/merge, [id number] 11/28/2023 09:16:39 12/09/19 24 12/09/2023 [facility] PATHO LOGY results Winifred ingram Name: LUANN LOPEZ Lab Acces ira #: [id number] Patiricarod nt : 1959 (Age: 63) Colle ction [...] Avenu e, Dotty grier [place] (CLIA #[id number]). Its perfo rmanc e telma cteri stics are deter mined by [employer]. Phone #: [phone], On-Ca ll Patho logis t: [id number] Not Available [facility] (Centralized Electronic Ordering - All Locations) Patient Can Go To The Location Of Their Choice, [id number] 12/11/2023 15:46:25 07/15/20 17 07/15/2017 MAMMO , scree betina, digit al, bilat eral No observ ation record ed. Not Available 06/23 12:24:58 12/03/19 24 12/02/2023 US, pelvi s, trans abdom inal + trans vagin al No observ ation record ed. [email or web address] [facility] [address] [facility], [place], [address], 12/09/2023 10:18:09 02/18/20 24 02/18/2024 MAMMO , scree betina, digit al, bilat eral No observ ation record ed. [facility] [address], [place], [address], 02/19/2024 07:51:20 Result Notes None recorded. Problems Name Problem SNOMED Code Status Onset Date Resolution Date Notes Provider Name and Address Organization Details Recorded Time Asthma 587273947 Active 2016 TONNY Zheng in [facility], 7 11:45:24 Raynaud's disease 721762663 Active 2016 TONNY Zheng in [facility], 7 11:45:41 Hypercholester olemia 99827149 Active 2016 TONNY Zheng in [facility], 7 11:46:02 Postmenopausal bleeding 84230817 Active 2016 TONNY Zheng in [facility], 7 11:46:22 Headache 60770481 Active 2016 TONNY Zheng in [facility], 7 11:46:44 Morbid obesity 067164021 Active 2016 TONNY Zheng in [facility], 7 11:47:05 Hypertensive disorder 05054798 Active 2017 Betsy Godoy MD [address] [facility], [place], [address], [place] - [facility], 8 09:15:52 Problem Notes None recorded. Procedures Surgical History Date Name Laterality Status Provider Name and Address Organization Details Recorded Time 12/09/19 Endometrial Biopsy completed Betsy Godoy MD [address] [facility],[address], [place], [address], [place] - [facility], 12/09/2023 11:58:24 Tonsillectomy completed Annamarie Lanejustina Beach in [facility], 05/27/2017 11:48:02 Imaging Results Imaging Date Name Status LastModified by Organization Details LastModified Time 07/15/2017 MAMMO, screening, digital, bilateral completed Information not available 07/15/2017 12:24:58 12/02/2023 US, pelvis, transabdominal + [facility]vaginal [facility] [address] [facility], [place], [address], 12/09/2023 10:18:09 02/18/2024 MAMMO, screening, digital, bilateral completed [facility] [address] [facility] [address], [place], [address], 02/19/2024 07:51:20 Procedure Notes None recorded. Medical Equipment None Reported. Allergies Allergen ID Allergen Name Allergen Category Reaction Reaction Severity Criticality Documentation Date Start Date Code Code System Note Provider Name and Address Organization Details Recorded Time prednison e medicatio n other Not available Not available 05/27/2017 8640 RxNorm tearf mandie ss & mohini lomas s TONNY Zheng in [facility], 7 11:44:09 acetamino phen / hydrocodo ne medicatio n rash Not available Not available 05/27/201716181 2 RxNorm TON[place] Zheng in [facility], 11:44:32 lisinopri l medicatio n cough Not available Not available 07/23/2018 60104 RxNorm Janna TON[place] Cain in [facility], 8 08:33:27 Medications Name Sig Start Date [...] Address Organization Details Last Updated DateTime 7 801214. 35 g 44.7 kg/m2 171.45 cm 71 /min 174 mm[Hg] 84 mm[Hg] Janna Beach in [facility], 7 09:00:59 Date Recorded Body height Body mass index (BMI) Body weight Heart rate Systolic blood pressure Diastolic blood pressure Provider Name and Address Organization Details Last Updated DateTime 7 171.45 cm 44.5 kg/m2 786760. 32 g 74 /min 151 mm[Hg] 87 mm[Hg] Janna Beach in [facility], 7 08:54:18 Date Recorded Body weight Body mass index (BMI) Body height Heart rate Systolic blood pressure Diastolic blood pressure Provider Name and Address Organization Details Last Updated DateTime 8 883942. 46 g 43.4 kg/m2 171.45 cm 70 /min 176 mm[Hg] 83 mm[Hg] Janna Beach in [facility], 8 08:31:09 Date Recorded Body height Body mass index (BMI) Body weight Heart rate Systolic blood pressure Diastolic blood pressure Provider Name and Address Organization Details Last Updated DateTime 4 170.18 cm 45.6 kg/m2 477522. 38 g 76 /min 147 mm[Hg] 80 mm[Hg] Janna Beach in [facility], 4 09:18:52 Date Recorded Body height Body mass index (BMI) Body weight Heart rate Systolic blood pressure Diastolic blood pressure Provider Name and Address Organization Details Last Updated DateTime 4 170.18 cm 46 kg/m2 251731 g 88 /min 165 mm[Hg] 88 mm[Hg] jennifer Beach in [facility], 4 10:21:29 Social History Question Answer Notes LastModified by Organizat ion Details LastModified Time Tobacco Smoking Status Never Smoker Not Available [facility] 07/25/2020 03:19:41 What Is Your Level Of Alcohol Consumption? Occasional [id number] Information not available 07/25/2020 How Many Years Have You Consumed Alcohol? 40 Information not available 11/28/2023 What Is Your Level Of Caffeine Consumption? Moderate [id number] Information not available 07/25/2020 In The 14 [...] Type Of Diet Are You Following? REGULAR [id number] Information not available 07/25/2020 Which Illicit Or Recreational Drugs Have You Used? No [id number] Information not available 07/25/2020 Do You Reside In Or Have You Traveled To An Area Where Ebola Virus Transmission Is Active? No [id number] Information not available 07/25/2020 Education 4 Year College Informatio n not available 05/30/2017 What Is The Highest Grade Or Level Of School You Have Completed Or The Highest Degree You Have Received? [id number] Information not available 11/28/2023 Who Is Your Employer? 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 [id number] Information not available 07/25/2020 How Many Days [...] available 11/28/2023 Are You Sexually Active? Yes [id number] Information not available 07/25/2020 How Much Tobacco Do You Smoke? No [id number] Information not available 07/25/2020 General Stress Level High Information not available 05/30/2017 Do You Feel Stressed (tense, Restless, Nervous, Or Anxious, Or Unable To Sleep At Night)? [id number] Information not available 11/28/2023 Do You Use Any Illicit Or Recreational Drugs? No Information not available 11/28/2023 How Many Years Have You Smoked Tobacco? 0 [id number] Information not available 07/25/2020 Have You Recently [...] Time What is your exercise level? Occasional [id number] Information not available 07/25/2020 Mental Status None [...] for MyRisk panel N Autoimmune Condition Y Kidney or Bladder Problems N Thyroid Problems N Depression N Lung Disease Y GI Problems N Defects or Inherited Disease N Anemia N [...] SNOMED-CT Code Diagnosis ICD10 Code Diagnosis Note [id number] MD BETSY Orozco MD [address] [facility] [address] [place] [address] 05/30/2017 08:45:48 05/30/2017 11:52:09 Postmenopausal bleeding 30595968 N95.0 [id number] MD BETSY Orozco MD [address] [place] [address],[place] [address] 06/03/2017 08:44:45 06/03/2017 11:33:17 Specialized medical examination 02023022 Z01.419 Screening for malignant neoplasm of rectum 339699272 Z12.12 Screening mammography 24 735949 Z12.31 00104 MD BETSY Orozco MD [address] [place] [address], [place] [address] 07/23/2018 08:18:13 07/23/2018 12:05:41 Specialized medical examination 17978800 Z01.419 Screening for malignant neoplasm of rectum 665256490 Z12.12 Screening mammography 24 139144 Z12.31 Hypertensive disorder 38 209928 I10 [id number] MD BETSY Orozco MD [address] [place] [address], [place] [address] 11/28/2023 09:12:49 11/28/2023 11:23:07 Specialized medical examination 80699305 Z01.419 Screening for malignant neoplasm of rectum 864336258 Z12.12 Screening mammography 24 995921 Z12.31 Pain in pelvis 38757368 R10.2 [id number] MD BETSY Orozco MD [address] [place] [address], [place] [address] 12/09/2023 10:14:46 12/09/2023 13:44:24 Postmenopausal bleeding 18454445 N95.0 Health Concerns Section Related Observation LastModified by Organization Detai ls LastModified Time None Recorded Concern Status LastModified by Organization Details LastModified Time None Recorded Advance Directives Directive None Recorded Payers Encounter Date Sequence Insurance Name Policy Number Policy Bar[place]ona Covered Member ID Barahona Member ID Guarantor Name 05/30/2017 1 [facility] [id number] Fred Savage [id number] Vernell Savage 06/03/2017 1 [facility] [id number] Fred Savage [id number] Vernell Savage 07/23/2018 1 [facility] [id number] Vernell Savage [id number] Vernell Savage 11/28/2023 1 [facility] [id number] Vernell Savage [id number] Vernell Savage 12/09/2023 1 [facility] [id number] Vernell Savage [id number] Vernell Savage Notes Date Note Type Note Provider Name and Address Organization Details Recorded Time 05/30/2017 text/html She is here for a problem visit as a new patient, she began the onset of bright red vaginal bleeding like a regular period, began 9 days ago, stopped bleeding yesterday, no bleeding today. Her last [place] exam was 6 years ago, that was her only single pap in her entire life. Betsy Godoy MD [address], [place], [address], [place] - [facility], 05/30/2017 11:18:50 06/03/2017 text/html She is here for annual exam, has not had a [place] exam since 2010. She had recent 7 [...] bleeding yesterday, no bleeding today. Her last [place] exam was 6 years ago, that was her only single pap in her entire life. She is haivng what appears to be PMB, however it could also represent, The last hurrah. [facility] FSH and serum estradiol levels. If [...] MD [address], [place], [address], [place] - [facility], 06/03/2017 09:30:12 07/23/2018 text/html She is here for annual exam, is doing well. No menses since last visit. 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 Note from 2017: She is here for annual exam, has not had a [place] exam since 2010. She had recent 7 days of bleeding, her labs she she is not yet in menopause so no sonogram or emb is necessary at this time. Betsy Godoy MD [address], [place], [address], [place] - [facility], 07/23/2018 09:16:33 11/28/2023 text/html She is here [...] this year with eating better.Works at a [employer] shop in [place]. She has two artificial ponds with choctaw, this is her relaxation! Betsy Godoy MD [address], [place], [address], [place] - [facility], 11/28/2023 09:47:52 12/09/2023 text/html She is here [...] because of the pain. Betsy Godoy MD [address] [place] [address],[address], [place], [address], [place] - [facility], 12/09/2023 11:58:57 OBGyn Episode No OBEpisode recorded.
== END 2025-01-25 15:43 | disposition home or self-care (01) ==
LOC: HO.HMCFM 14:57
PROVIDERS: PCP Internal Medicine; Visit Provider Internal Medicine
DX: E11.65 Type 2 diabetes mellitus with hyperglycemia (principal); I10 Essential (primary) hypertension; E78.2 Mixed hyperlipidemia

== ENCOUNTER 2025-05-16 10:14 | Outpatient (REF) | payer OTHER, SELFPAY ==
--- OUTSIDE RECORDS SUMMARY | 2025-05-16 11:20 | XMS_ITS ---
Author Name [facility] Organization Unknown Care Team Organization Name Specialty Phone Email Start Date End Da te [facility] Termed, PROVIDER Primary Care 07/30/202204/22
[2025-05-16 14:32] LABS: Hemoglobin A1C 185.0853 umol/L; Total Hemoglobin (HGBA1C) 3731.8584 umol/L
[2025-05-16 14:50] LABS: Albumin Level 4.2 g/dL (3.5-5.0); Alkaline Phosphatase 53 U/L (39-117); Anion Gap 13 (12-20); Aspartate Amino Transferase 29 U/L (5-31); Blood Urea Nitrogen 22 mg/dL (9-16); Calcium 9.6 mg/dL (8.4-10.2); Carbon Dioxide 28 mmol/L (22-29); Chloride 104 mmol/L (96-108); Estimated Glomerular Filt Rate > 60; Potassium 3.7 mmol/L (3.3-5.1); Sodium 141 mmol/L (135-145); Total Protein 7.6 g/dL (6.5-8.0)
[2025-05-16 15:04] LABS: Alanine Aminotransferase 30 U/L (0-31)
== END 2025-05-16 10:15 | disposition home or self-care (01) ==
LOC: HO.WFDLDS 10:14
PROVIDERS: Visit Provider Internal Medicine
DX: I10 Essential (primary) hypertension (principal); E11.65 Type 2 diabetes mellitus with hyperglycemia
CPT/HCPCS: 36415; 80053; 82533; 83036

== ENCOUNTER 2025-05-17 09:34 | Outpatient (REF) | payer OTHER, SELFPAY ==
[2025-05-17 14:13] LABS: MANUAL DIFF FLAG NO
[2025-05-17 14:18] LABS: Hematocrit 41.2 % (37.0-47.0); Hemoglobin 13.6 g/dl (12.0-16.0); Imm Gran Abs Auto 0.01 X10*3/uL (0.00-0.03); Imm Gran Pct Auto 0.2 % (0.0-0.4); Lymphocytes Absolute Auto 1.5 X10*3/uL (1.2-4.9); Mean Corpuscular HGB Conc 33.0 g/dl (31.0-35.0); Mean Corpuscular Hemoglobin 29.6 pg (27.0-33.0); Mean Corpuscular Volume 89.6 fL (80.0-98.0); NRBC Abs Auto 0.000 X10*3/uL (0.0-0.012); NRBC Pct Auto 0.0 /100WBC (0.0-0.2); Platelet Count 240 X10*3/uL (160-400); Red Blood Count 4.60 X10*6/uL (4.20-5.50); White Blood Count 4.8 X10*3/uL (4.8-10.8)
[2025-05-17 15:08] LABS: Anion Gap 13 (12-20); Blood Urea Nitrogen 23 mg/dL (9-16); Calcium 9.5 mg/dL (8.4-10.2); Carbon Dioxide 31 mmol/L (22-29); Chloride 101 mmol/L (96-108); Estimated Glomerular Filt Rate > 60; Iron 87 mcg/dL (30-160); Percent Iron Saturation 34 % (15-50); Potassium 3.5 mmol/L (3.3-5.1); Sodium 141 mmol/L (135-145); Total Iron Binding Capacity 259 mcg/dL (228-428); Unsaturated Iron Binding 172 ug/dL
[2025-05-17 15:15] LABS: Folate 9.5 ng/mL (> or = 4.0); Vitamin B12 409 pg/mL (200-900)
[2025-05-18 08:48] LABS: Lyme Abs Screen <0.90 index
[2025-05-21 18:32] LABS: Vitamin D 25-OH, D2 <4 ng/mL; Vitamin D 25-OH, D3 30 ng/mL; Vitamin D 25-OH, Total 30 ng/mL (30-100)
== END 2025-05-17 09:35 | disposition home or self-care (01) ==
LOC: HO.WFDLDS 09:34
PROVIDERS: PCP Internal Medicine; Visit Provider Internal Medicine
DX: E11.65 Type 2 diabetes mellitus with hyperglycemia (principal); E78.2 Mixed hyperlipidemia; I10 Essential (primary) hypertension; R53.83 Other fatigue
CPT/HCPCS: 36415; 80048; 82306; 82607; 82746; 83540; 85025; 86617; 86618

== ENCOUNTER 2025-05-17 09:34 | Outpatient (AMB) | payer OTHER, SELFPAY ==
--- NOTE | 2025-05-17 09:36 | MHC.PC.OV ---
Vital Signs 05/17/25 09:39 Height 5 ft 9 in Weight 275 lb 6 oz BMI 40.7 BP 120/78 Blood Pressure Location Rt brachial Position Sitting Respiration 14 Pulse 65 Pulse Source Pulse Oximeter Temp 98.5 F Temp Source Oral Pulse Oximetry (%) 95 Oxygen Delivery Method Room Air Intake Visit Reasons: DM - see comments Intake Note: Diabetes follow up. Having jaw pain and sensitive to sound. Symptoms for a month. Inspector Floor Sub Assembly Required: No Allergies hydrocodone (From Vicodin) Allergy (Severe, Verified 05/17/25 09:38) Unknown lisinopril Allergy (Severe, Verified 05/17/25 09:38) Difficulty Breathing prednisolone Allergy (Severe, Verified 05/17/25 09:38) Unknown Tobacco use date assessed: 05/17/25 Fall risk assessment: No Falls in past year Last assessed Fall Risk: 05/17/25 Dental Screening Dental Screen Date: 01/25/25 HPI HPI Comments History of Present Illness Details 65-year-old female with a past medical history of allergies/allergic rhinitis, asthma, recurrent sinusitis, Raynaud's, obesity, hyperlipidemia, diabetic range A1C presenting for follow up Diabetes: A1C improved to 6.7%. She has lost 16 pounds since starting [employer]. 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 Only sleeping a few hours per night. She has seen the diabetic firer low pressure and changed her diet. She has been able to lose weight since her last A1C. She has a visit upcoming for repeat. is diabetic so has some knowledge. Discussed various treatment options. Wants 3 months to start exercising and wants to see diabetic firer low pressure. Would consider medications if not improved thereafter. LDL has improved but still high especially in light of diabetes. She feels more fatigue than usual for the past 6 months. CV: On chlorthalidone 25 mg a day for hypertension, furosemide prn LE swelling. Controlled. Refuses statin therapy. She has intermittent leg swelling/fluid retention when she works 12 hour shifts. Not eating added salt. Denies shortness of breath Asthma/HGB: On Zyrtec, Flonase, albuterol. History of fluid-filled blisters, bullous pemphigoid, 2019 in about 10/11/2022. No interval issues. History of stable pulmonary nodules. Last CT 01/2023-no follow up needed Mammo 01/2024 Cologuard 02/28/2023 ROS see HPI PHYSICAL EXAM: GENERAL: Alert and oriented x 3. NAD EYES: EOMI. Anicteric. HENT: Moist mucous membranes. No scleral icterus. No cervical lymphadenopathy. LUNGS: Clear to auscultation bilaterally. CARDIOVASCULAR: Regular rate and rhythm. No murmur. No JVD. ABDOMEN: Soft, non-tender +bs EXTREMITIES: No edema. Non-tender. SKIN: No rashes or lesions. Warm. NEUROLOGIC: No focal neurological deficits. CN II-XII grossly intact PSYCHIATRIC: Cooperative. Appropriate mood and affect [facility] Medical History Severe obesity Seasonal allergies Prediabetes Hyperlipidemia Asthma Surgical History Hx of tonsillectomy Family History Brother Heart disease Mother Heart disease Hypertension Father Heart disease Hypertension Social History Household Members: Spouse Housing: House Are you a primary day care aide to a significant other at home: No Do you presently have visiting nurse or other home services: No 75 years or older and lives alone: No Alcohol intake: current Alcohol intake frequency: a few times a month Patient Tobacco Use Status: Never used Tobacco e-Cigarette/Vaping Use: Never Used Second Hand Smoke Exposure: No service: No Current occupational status: employed 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 Cognitive needs: No Hearing needs: No Vision needs: Yes (will be seeing eye doctor) Questionnaire Thrive Questionnaire Date Thrive assessed: 10/22/24 I am a: Patient What is your living situation today?: I have a steady place to live Within the past 12 months, did the food you bought not last and you didn't have the money to get more?: Never true Within the past 12 months, did you worry whether your food would run out before you got money to buy more?: Never true Do you have trouble paying for medicines?: I choose not to answer this question Do you have trouble getting transportation to medical appointments?: No Do you have trouble paying your heating and electricity bill?: I choose not to answer this question Do you have trouble taking care of your child, family member or friend?: No Do you have trouble with day-to-day activities such as bathing, preparing meals, shopping, managing finances, etc.?: No Are you currently unemployed and looking for a job?: No Are you interested in more education?: No Please select the resources that you would like help with: None Currently or been in a relationship where the following occur: No concerns reported THRIVE Score: 0 FARHEEN-7 AMB Questionnaire FARHEEN-7 Date FARHEEN - 7 assessed: 10/22/24 Source: Developed by Drs. Dawood Lopez, Gisela Cornelius, Derek Oates and colleagues, with an educational wilbur from [employer]. Physical exam (Primary Care) Vital Signs: Last Vital Signs Temp 98.5 F 05/17/25 09:39 Pulse 65 05/17/25 09:39 Resp 14 05/17/25 09:39 BP 120/78 05/17/25 09:39 Pulse Ox 95 05/17/25 09:39 Oxygen Delivery Method Room Air 05/17/25 09:39 BMI result Body Mass Index 40.7 Tobacco/Smoking Status: Tobacco use Status Tobacco use date assessed 05/17/25 05/17/25 09:43 Patient Tobacco Use Status Never used Tobacco 05/17/25 09:43 e-Cigarette/Vaping Use Never Used 05/17/25 09:43 Thrive Assessment: Date of Thrive Assessment Date Thrive assessed 10/22/24 05/17/25 09:43 Currently or been in a relationship where the following occur: No concerns reported Coding Level of Care Code Est Pt Level 4 (85409) Diagnoses Type 2 diabetes mellitus with hyperglycemia, without long-term current use of insulin E11.65 Diabetes mellitus electric truck driver insulin use: without senior living use Diabetes mellitus complication status: with hyperglycemia Mixed hyperlipidemia E78.2 Hyperlipidemia type: mixed hyperlipidemia Primary hypertension I10 Hypertension type: primary hypertension Assessment & Plan Assessment & Plan (1) Type 2 diabetes mellitus: Code(s): E11.9 - Type 2 diabetes mellitus without complications Category: Medical Qualifiers: Diabetes mellitus electric truck driver insulin use: without electric truck driver use Diabetes mellitus complication status: with hyperglycemia Qualified Code(s): E11.65 - Type 2 diabetes mellitus with hyperglycemia (2) Hyperlipidemia: Code(s): E78.5 - Hyperlipidemia, unspecified Category: Medical Qualifiers: Hyperlipidemia type: mixed hyperlipidemia Qualified Code(s): E78.2 - Mixed hyperlipidemia (3) Hypertension: Code(s): I10 - Essential (primary) hypertension Category: Medical Qualifiers: Hypertension type: primary hypertension Qualified Code(s): I10 - Essential (primary) hypertension Plan Diabetes is now well controlled on mounjaro. Continue current dosing. congratulated on interval weight loss Sinusitis-azithromycin sent HTN well controlled Orders: Orders Complete Blood Count Auto Diff Today R53.83 - Other fatigue Vitamin D 25-OH (D2 and D3) Today R53.83 - Other fatigue IRON PROFILE Today R53.83 - Other fatigue Lyme IgG/IgM w/reflex to WB Today R53.83 - Other fatigue Vitamin B12 and Folate Today R53.83 - Other fatigue Medications: New azithromycin 500 mg PO DAILY 5 tabs 0RF 5 days
[2025-05-17 09:39] VITALS: BP 120/78; PULSE 65; RESP 14; TEMP 36.9; O2SAT 95; BMI 40.7
--- OUTSIDE RECORDS SUMMARY | 2025-05-17 10:10 | XMS_ITS | Clinical Summary ---
Author Organization [facility] Address [address] [place] [address] Care Team Providers Care Hide And Skin Fleshing Machine Operator Name Role Phone Mili Mondragon MD Primary [...] Relation Name Comments Hypertension Father dx 70's [place] Maternal Grandfather Cancer of the Breast Maternal Grandmother Diabetes Maternal Grandmother CABG Mother early 50's Cholesterol Level Mother MA Mother 40's, 2nd MA @ 77yo and Diabetes Paternal Grandmother Relation [...] 102 04/03/2019 1:38 PM EDT Temperature 36.9 C (98.4 F) 04/03/2019 1:38 PM EDT Respiratory Rate 12 04/03/2019 1:38 PM EDT [...] FOR HIG H RISK PATIENTS (#1) 1980 COLON CANCER SCREEN WITH STO OL CARD 2011 02/21/2004 SHINGLES VACCINE (1 of 2) 2011 CERVICAL CANCER SCREENING 07/15/2014 07/15/2011 CHOLESTEROL SCREENING 10/23/2015 10/23/2010, 006 MAMMOGRAM 07/15/2018 07/15/2017, 05/3 09/2012, 07/17/2011, Additional history exists BMI CHECK/ADVISE 09/22/2024 INFLUENZA (#1) 2025 Care Teams Hide And Skin Fleshing Machine Operator Relationship Specialty Start Date End Date Mili Mondragon MD PCP - General 11/23/03
--- OUTSIDE RECORDS SUMMARY | 2025-05-17 10:10 | XMS_ITS | Encounter Summary ---
Author Organization [facility] Address [address] [place] [address] Care Team Providers Care Retail Stocker Name Role Phone Mili Mondragon MD Primary Care Provider Unava ilable Encounter Details Date Type Department Care Team Description 05/29/2017 Release of Information Medical Records [address] [place] [id number] Abstract, Provider Social History Tobacco Use Types [...] on filedocumented in this encounter Care Teams Retail Stocker Relationship Specialty Start Date End Date Mili Mondragon MD PCP - General 11/23/03 documented as of this encounter
--- OUTSIDE RECORDS SUMMARY | 2025-05-17 10:11 | XMS_ITS | Encounter Summary ---
Author Organization [facility] Address [address] [place] [address] Care Team Providers Care Painter Helper Spray Name Role Phone Mili Mondragon MD Primary Care Provider Unava ilable Encounter Details Date Type Department Care Team Description 03/13/2015 [facility] Medical Records [address] [place] [address] Abstract, Provider Social History Tobacco Use Types [...] on filedocumented in this encounter Care Teams Painter Helper Spray Relationship Specialty Start Date End Date Mili Mondragon MD PCP - General 11/23/03 documented as of this encounter
--- OUTSIDE RECORDS SUMMARY | 2025-05-17 10:11 | XMS_ITS | Encounter Summary ---
Author Organization [facility] Address [address] [place] [address] Care Team Providers Care Decorating And Assembly Supervisor Name Role Phone Mili Mondragon MD Primary Care Provider Unava ilable Encounter Details Date Type Department Care Team Description 02/27/2015 [facility] Medical Records [address] [place] [address] Abstract, Provider Social History Tobacco Use Types [...] on filedocumented in this encounter Care Teams Decorating And Assembly Supervisor Relationship Specialty Start Date End Date Mili Mondragon MD PCP - General 11/23/03 documented as of this encounter
--- OUTSIDE RECORDS SUMMARY | 2025-05-17 10:11 | XMS_ITS | Encounter Summary ---
Author Organization [facility] Address [facility] [place] [address] Care Team Providers Care Test Technician Name Role Phone Mili Mondragon MD Primary Care Provider Unava ilable Encounter Details Date Type Department Care Team Description 03/28/2016 Orders Only Radiology - [address] [address] Mili Mondragon MD Social History Tobacco Use [...] on filedocumented in this encounter Care Teams Test Technician Relationship Specialty Start Date End Date Mili Mondragon MD PCP - General 11/23/03 documented as of this encounter
--- OUTSIDE RECORDS SUMMARY | 2025-05-17 10:11 | XMS_ITS | Encounter Summary ---
Author Organization [facility] Address [address] [place] [address] Care Team Providers Care Senior Safety Support Manager Name Role Phone Mili Mondragon MD Primary Care Provider Unava ilable Encounter Details Date Type Department Care Team Description 04/02/2021 Marketing Liaison Report Medical Records [address] [place] [address] Alison Corona MD Social History Tobacco Use Types Packs/Day [...] on filedocumented in this encounter Care Teams Senior Safety Support Manager Relationship Specialty Start Date End Date Mili Mondragon MD PCP - General 11/23/03 documented as of this encounter
--- OUTSIDE RECORDS SUMMARY | 2025-05-17 10:11 | XMS_ITS | Encounter Summary ---
Author Organization [facility] Address [address] [place] [address] Care Team Providers Care Senior Mortgage Loan Processor Name Role Phone Mili Mondragon MD Primary Care Provider Unava ilable Encounter Details Date Type Department Care Team Description 03/13/2015 [facility] Medical Records [address] [place] [address] Abstract, Provider Social History Tobacco Use Types [...] filedocumented in this encounter Care Teams Senior Mortgage Loan Processor Relationship Specialty Start Date End Date Mili Mondragon MD PCP - General 11/23/03 documented as of this encounter
== END 2025-05-17 10:09 | disposition home or self-care (01) ==
LOC: HO.HMCFM 09:35
PROVIDERS: PCP Internal Medicine; Visit Provider Internal Medicine
DX: E11.65 Type 2 diabetes mellitus with hyperglycemia (principal); E78.2 Mixed hyperlipidemia; I10 Essential (primary) hypertension

== ENCOUNTER 2025-06-23 11:36 | Outpatient (AMB) | payer OTHER, SELFPAY ==
[2025-06-23 11:41] VITALS: BMI 39.8
--- NOTE | 2025-06-23 11:41 | MHC.AMNUTRGE ---
VS Expanded 06/23/25 11:41 06/23/25 11:51 Height 5 ft 9 in 5 ft 9 in Weight 269 lb 10.005 oz 270 lb BMI 39.8 39.9 Intake Visit Reasons: T2DM Allergies hydrocodone (From Vicodin) Allergy (Severe, Verified 05/17/25 09:38) Unknown lisinopril Allergy (Severe, Verified 05/17/25 09:38) Difficulty Breathing prednisolone Allergy (Severe, Verified 05/17/25 09:38) Unknown Nutrition Presentation Details: Pt presents for MNT for T2DM Pt is now on mounjaro, reports feeling well no constipation Typical meal B: 1-2 eggs,/turkey whole grain toast , coffee with 1 1/2 tbsp creamer non flavored L: cottage cheese and francisco or sand (ham ), water dinner: rice/chicken/broccoli, water fluids: 64 oz physical activity: ADL etoh/smoking---- BS Monitoring Most Recent Diabetes Results: Creatinine, (0.5-1.4) 0.86 mg/dL 05/17/25 BUN, (9-16) 23 mg/dL H 05/17/25 Sodium, (135-145) 141 mmol/L 05/17/25 Potassium, (3.3-5.1) 3.5 mmol/L 05/17/25 Chloride, (96-108) 101 mmol/L 05/17/25 Carbon Dioxide, (22-29) 31 mmol/L H 05/17/25 Calcium, (8.4-10.2) 9.5 mg/dL 05/17/25 AST, (5-31) 29 U/L 05/16/25 ALT, (0-31) 30 U/L 05/16/25 Total Protein, (6.5-8.0) 7.6 g/dL 05/16/25 Albumin, (3.5-5.0) 4.2 g/dL 05/16/25 FZN-Bltjngh-Ab.Jeor Equation Height: 5 ft 9 in Weight: 270 lb Resting Metabolic Rate: 1842.97 Calculated Activity Level: Sedentary Calories Needed to Maintain Weight: 2211.56 [facility] Medical History Severe obesity Seasonal allergies Prediabetes Hyperlipidemia Asthma Surgical History Hx of tonsillectomy Family History Brother Heart disease Mother Heart disease Hypertension Father Heart disease Hypertension Social History Household Members: Spouse Housing: House Are you a primary client care representative to a significant other at home: No Do you presently have visiting nurse or other home services: No 75 years or older and lives alone: No Alcohol intake: current Alcohol intake frequency: a few times a month Patient Tobacco Use Status: Never used Tobacco e-Cigarette/Vaping Use: Never Used Second Hand Smoke Exposure: No service: No Current occupational status: employed Current occupation: [employer] Cognitive needs: No Hearing needs: No Vision needs: Yes (will be seeing eye doctor) Assessment & Plan Assessment & Plan (1) Type 2 diabetes mellitus: Code(s): E11.9 - Type 2 diabetes mellitus without complications Category: Medical Qualifiers: Diabetes mellitus care home insulin use: without buttermaker helper use Diabetes mellitus complication status: with hyperglycemia Qualified Code(s): E11.65 - Type 2 diabetes mellitus with hyperglycemia Plan: Wt: 134 Kg ( 06/15 ), 129 kg (07/15), 129kg (12/14), 122 (07/16) Est kcal needs as per MSJ: 2200 -500 =1700 (40% carb, 30% protein/fat) Est fluid needs as per 25-30 ml/d: 3700 Est prot per day as per 1 g/kg bw: 120 Recommend fiber intake : 8-10 g per day and gradually increase to 25-28 g per day for women and 35-38 g for men or as tolerated Recommend sodium intake per day : less than 1500 mg less than 2000 mg Educated patient on: ( R = reviewed V = verbalizes understanding N/R = needs review N/A = not applicable Food sources of carbohydrate, adequate serving sizes and its role in various health conditions: R V Differences between complex carbohydrates a simple carbohydrates, role of fiber in diet: R Lean protein sources of foods: R Differences between types of fats and role in diet (mono on saturated fat fatty acids, saturated fatty acids, trans fats): R Food sources of sodium in salt and healthy modifications for heart health in kidney health: R Vitamins and minerals: R V N/R Healthy plate method concept: R low sugar beverages: R Physical activity: Benefits a precaution: R Hypoglycemia protocol (rule of 15): R V N/R Dietary prevention of Hyperglycemia: R Patient Instructions: Choose low fat food choices and continue working on reducing amount of sugar (sugar added to foods, and when reading labels choose foods with <5 g of sugar per serving Coding Level of Care Code Nutr Indiv Subseq (70540) Diagnoses Type 2 diabetes mellitus with hyperglycemia, without long-term current use of insulin E11.65 Diabetes mellitus buttermaker helper insulin use: without care home use Diabetes mellitus complication status: with hyperglycemia Time Spent (min) 30
[2025-06-23 11:51] VITALS: BMI 39.9
--- OUTSIDE RECORDS SUMMARY | 2025-06-23 13:28 | XMS_ITS | Data Portability ---
Author Organization [place] - [facility],, BETSY GODOY MD Address [address] [facility] [address] [place] [address] Care Team Providers Care Family Coach Name Role Phone FeltonYEE BARKER Primary Care Provider Assessment No assessment recorded. Plan of Treatment Reminders Order Date Submit Date Provider Last Modified By Organization Details Last Modified Time Details Appointments None recorded. Lab biopsy, endometri al 2023 024 [facility] (Centralized Electronic Ordering - All Locations), Patient Can Go To The Location Of Their Choice, [id number] 07:42:51 pap test, thinprep, cervical 2023 024 [employer] ([email or web address] [employer] [facility] (Centralized Electronic Ordering - All Locations), Patient Can Go To The Location Of Their Choice, [id number] 4 08:00:10 fecal occult blood, stool 2023 024 [email or web address] 1 In-Office Order, Internal Use Only DO Not Attach Compendium DO Not Attach Compendium, Do Not Delete/merge, [id number] 4 09:47:29 pap test, thinprep, cervical [address] [facility], Cytopathology Service, [address] [facility], [place], [address], 8 16:57:32 fecal occult blood, stool 2017 018 [email or web address] In-Office Order, Internal Use Only DO Not Attach Compendium DO Not Attach Compendium, Do Not Delete/merge, [id number] 8 08:45:49 pap test, thinprep, cervical [address] [facility], Cytopathology Service, [address] [place], [address], 7 13:20:58 fecal occult blood, stool 2016 017 [email or web address] 1 In-Office Order, Internal Use Only DO Not Attach Compendium DO Not Attach Compendium, Do Not Delete/merge, [id number] 7 09:28:34 FSH (follicle -stimulat ing hormone), serum 2016 017 HARLEYEvolita, [address] [place], [address], 7 04:22:28 estradiol , serum 2016 017 HARLEYEvolita, [address] [place], [address], 7 04:22:26 Referral None recorded. Procedures biopsy, endometri um (PROC) 2023 024 frida In-Office Order, Internal Use Only DO Not Attach Compendium DO Not Attach Compendium, Do Not Delete/merge, [id number] 4 13:44:12 Surgeries None recorded. Imaging MAMMO, screening , digital, bilateral - Breast Aspiratio n and/or Biopsy if needed 2023 024 [facility] ([facility]), [address] [place], [address], 4 14:36:05 US, pelvis, transabdo shauna + transvagi nal - recurrent midline, sharp, pelvic pain, new, over past two months 2023 024 [facility] ([facility]), [address] [facility], [place], [address], 4 07:39:50 MAMMO, screening , digital, bilateral 2017 018 carmela [facility] ([facility] [address] [place], [address], 9 08:50:18 MAMMO, screening , digital, bilateral 2016 017 HARLEY [facility] ([facility]), [address] [place], [address], 7 12:21:58 Medication Orders None recorded. Patient TargetsNo targets recorded. Patient Instructions Encounter Date Encounter Id Patient Instructions Last Modified By Organization Details Last Modified Time 05/30/2017 [id number] vaginal bleeding after menopause: care instructions [email or web address] Not available 05/30/2017 09:55:43 She is here for a problem visit as a new patient, she began the onset of bright red vaginal bleeding like a regular period, began 9 days ago, stopped bleeding yesterday, no bleeding today. 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 She is haivng what appears to be PMB, however it could also represent, [facility] F[facility] and serum estradiol levels. 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 She had recent 7 [...] bleeding yesterday, no bleeding today. 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 She is haivng what appears to be PMB, however it could also represent, The last hurrah. [facility] FSH and serum estradiol levels. If [...] vasomotor symptoms. Not available 06/03/2017 09:29:52 07/23/2018 [id number] self breast exam education Not available 07/23/2018 09:15:57 She is here for annual exam, is doing well. No menses since last visit. No significant vasomotor symptoms. Notes 8 pound weight loss this year with eating better. Works at a [employer] in [place]. She has two artificial ponds with [place]ilton, this is her relaxation! 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 She had recent 7 [...] questions answered. Not available 07/23/2018 09:16:14 11/28/2023 [id number] learning about healthy weight [email or web address] Not available 11/28/2023 09:39:21 She is here [...] year with eating better. 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 She has two artificial ponds with [place], this is her relaxation! __ She appears [...] discovers any new mass in the breast. [facility] Not available 11/28/2023 09:47:25 12/09/2023 [id number] postmenopausal bleeding information [facility] Not available 12/09/2023 11:55:54 endometrial biop sy: about this test [facility] Not available 12/09/2023 11:55:55 She is here [...] DO Not Attach Compendium, Do Not Delete/merge, [id number] 07/23/2018 08:35:30 06/03/20 17 06/03/2017 fecal occul t blood , stool Occult Blood negati ve Not Available In-Office Order Internal Use Only DO Not Attach Compendium DO Not Attach Compendium, Do Not Delete/merge, [id number] 06/03/2017 08:55:19 05/30/20 17 05/30/2017 estra diol, serum comments [facility] [address] [facility] [place] [address] [phone] Not Available [facility] [address] [place], [address], 05/31/2017 04:22:26 05/30/20 17 05/30/2017 estra diol, [...] - 58.3 Not Available [facility] [address] [place], [address], 05/31/2017 04:22:26 05/30/20 17 05/30/2017 FSH (foll icle- stimu latin g hormo ne), serum comments [facility] [address] [facility] Diony [place] [address] [phone] Not Available [facility] [address] [place], [address], 05/31/2017 04:22:28 05/30/20 17 05/30/2017 FSH (foll [...] - 132.2 Not Available [facility] [address] [place], [address], 05/31/2017 04:22:28 06/03/20 17 06/03/2017 pap, LB [id number] ThinP rep Pap, Image d: NEGAT JULIA FOR SQUAM OUS INTRA EPITH ELIAL LESIO N AND CHARITY ELLIS . Nancy Fritz, CT( CP) (Case elect liat jarrettami gopi d 06 04 2017) ADEQU ACY: Satis facto ry. Endoc ervic al/tr ansfo rmati on zone compo nent absen t. SOURC E: ThinP rep Pap HPV IF Ascus : Refle x 16 and 18, Cervi shanthi, Image d: CLINI SHANTHI INFOR MATIO N: HPV If Diagn osis of ASCUS . Z12.4 , V72.3 1, Z01.4 19 Not Available [facility], Cytopathology Service [address] [place], [address], 06/04/2017 13:20:58 07/23/20 18 07/23/2018 pap, LB [id number] ThinP rep Pap, Image d: NEGAT JULIA FOR SQUAM OUS INTRA EPITH ELIAL LESIO N AND MALLUZ MARINA RHONDA . Emmy Fermin a, CT( CP) (Case elect liat curiel gopi d 07 24 2018) ADEQU ACY: Satis facto ry. Endoc ervic al/tr ansfo rmati on zone compo nent absen t. SOURC E: ThinP rep Pap HPV IF ASCUS , Cervi shanthi, Image d: CLINI SHANTHI INFOR MATIO N: HPV If Diagn osis of ASCUS . Menop ause, lps neg, z12.4 , z01.4 19 Not Available [facility], Cytopathology Service [address] [facility], [place], [address], 07/24/2018 16:57:32 11/28/19 24 12/04/2023 IGP, RFX APTIM A HPV ASCU diagnosis: Commshaquille t NEGAT JULIA FOR INTRA EPITH ELIAL LESIO N OR CHARITY ELLIS . Not Available [facility] ([facility]) [address] [place], [address], 12/04/2023 12:06:33 11/28/19 24 12/04/2023 IGP, RFX APTIM A HPV ASCU specimen adequacy: Commshaquille t Satis facto ry for evalu ation . No endoc ervic al compo nent is ident ified . Not Available [facility] ([facility]) [address] [facility], [place], [address], 12/04/2023 12:06:33 11/28/19 24 12/04/2023 IGP, RFX APTIM A HPV ASCU clinician provided ICD10: Jose clarke Z01.4 19 Not Available [facility] ([facility]) [address] [place], [address], 12/04/2023 12:06:33 11/28/19 24 12/04/2023 IGP, RFX APTIM A HPV ASCU performed by: Jose hernandez, Cytotricia clarke (ASCP ) Not Available [facility] ([facility]) [address] [facility], [place], [address], 12/04/2023 12:06:33 11/28/19 24 12/04/2023 IGP, RFX APTIM A HPV ASCU . . Not Available [facility] ([facility]) [address] [facility], [place], [address], 12/04/2023 12:06:33 11/28/19 24 12/04/2023 IGP, RFX [...] ts do occur . Not Available [facility] ([facility]) [address] [facility], [place], [address], 12/04/2023 12:06:33 11/28/19 24 12/04/2023 IGP, RFX APTIM A HPV ASCU test methodology: Commen t This liqui d based ThinP rep(R ) pap test was scree kyle with the use of an image guide d syste m. Not Available [facility] ([facility]) [address] [place], [address], 12/04/2023 12:06:33 11/28/19 24 12/04/2023 IGP, RFX APTIM A HPV ASCU . Commen t The HPV DNA refle x crite fredrick were not met with this speci men resul t there fore, no HPV testi ng was perfo rmed. Not Available [facility] ([facility]) [address] [facility], [place], [address], 12/04/2023 12:06:33 03/0811/28/2023 fecal occul t blood , stool Occult Blood negati ve Not Available In-Office Order Internal Use Only DO Not Attach Compendium DO Not Attach Compendium, Do Not Delete/merge, [id number] 11/28/2023 09:16:39 12/09/1912/09/2023 [facility] results Winifred nt Name: LUANN LOPEZ Lab Acces ira [...] ing is perfo rmed at [facility] , [address], [place] (CLIA #[id number]). Its perfo rmanc e telma cteri stics are deter mined by [employer] . Phone #: [phone], On-Ca ll Patho logis t: [id number] Not Available [facility] (Centralized Electronic Ordering - All Locations) Patient Can Go To The Location Of Their Choice, [address] 12/11/2023 15:46:25 07/15/20 17 07/15/2017 MAMMO , scree betina, digit al, bilat eral No observ ation record ed. Not Available 06/23 12:24:58 12/03/1912/02/2023 US, pelvi s, trans abdom inal + trans vagin al No observ ation record ed. [email or web address] [facility] [address] [facility], [place], [address], 12/09/2023 10:18:09 02/18/20 24 02/18/2024 MAMMO , scree betina, digit al, bilat eral No observ ation record ed. [facility] [address], [place], [address], 02/19/2024 07:51:20 Result Notes None recorded. Problems Name Problem SNOMED Code Status Onset Date Resolution Date Notes Provider Name and Address Organization Details Recorded Time Asthma 936400286 Active 2016 TONNY Zheng in [facility], 7 11:45:24 Raynaud's disease 504484707 Active 2016 TONNY Zheng in [facility], 7 11:45:41 Hypercholester olemia 61287225 Active 2016 TONNY Zheng in [facility], 7 11:46:02 Postmenopausal bleeding 75389517 Active 2016 TONNY Zheng in [facility], 7 11:46:22 Headache 17202940 Active 2016 TONNY Zheng in [facility], 7 11:46:44 Morbid obesity 813843511 Active 2016 TONNY Zheng in [facility], 7 11:47:05 Hypertensive disorder 21738482 Active 2017 Betsy Godoy MD [address] [facility], [place], [address], [place] - [facility], 8 09:15:52 Problem Notes None recorded. Procedures Surgical History Date Name Laterality Status Provider Name and Address Organization Details Recorded Time 12/09/19 24 Endometrial Biopsy completed Betsy Godoy MD [address] [facility],[address], [place], [address], [place] - [facility], 12/09/2023 11:58:24 Tonsillectomy completed Annamarie Drakecaron [place] in [facility], 05/27/2017 11:48:02 Imaging Results None recorded. Procedure Notes None recorded. Medical Equipment None Reported. Allergies Allergen ID Allergen Name Allergen Category Reaction Reaction Severity Criticality Documentation Date Start Date Code Code System Note Provider Name and Address Organization Details Recorded Time prednison e medicatio n other Not available Not available 05/27/2017 8640 RxNorm tearf mandie ss & antoniae abebe s TONNY Zheng in [facility], 7 11:44:09 acetamino phen / hydrocodo ne medicatio n rash Not available Not available 05/27/2017 79675 2 RxNorm TONNY Zheng in [facility], 7 11:44:32 lisinopri l medicatio n cough Not available Not available 07/23/2018 59613 RxNorm Janna TONNY Cain in [facility], 8 08:33:27 Medications Name Sig Start [...] Available Not Available Not Available amoxicillin 875 mg-namratau m clavulanate 125 mg tablet TAKE 1 TABLET BY MOUTH every 12 hours FOR 10 DAYS 11/27 completed Not Available Not Available Not Available clobetasol- emollient 0.05 % topical cream Apply twice daily to affected area for up to 2 weeks 05/30 completed Not Available Not Available Not Available albuterol sulfate active Not Available Not Available Not Available Vitals Date Recorded Body height Body mass index (BMI) Body weight Heart rate Systolic And Diastolic Provider Name and Address Organization Details Last Updated DateTime 11/28/2023 170.18 cm 45.6 kg/m2 311976.3 8 g 76 /min 147/80 mm[Hg] Janna [place] in [facility], 11/28/2023 09:18:52 Date Recorded Body height Body mass index (BMI) Body weight Heart rate Systolic And Diastolic Provider Name and Address Organization Details Last Updated DateTime 12/09/2023 170.18 cm 46 kg/m2 776965 g 88 /min 165/88 mm[Hg] jennifer [place] in [facility], 12/09/2023 10:21:29 Date Recorded Body weight Body mass index (BMI) Body height Heart rate Systolic And Diastolic Provider Name and Address Organization Details Last Updated DateTime 05/30/2017 294413.3 5 g 44.7 kg/m2 171.45 cm 71 /min 174/84 mm[Hg] Janna [place] in [facility], 05/30/2017 09:00:59 Date Recorded Body height Body mass index (BMI) Body weight Heart rate Systolic And Diastolic Provider Name and Address Organization Details Last Updated DateTime 06/03/2017 171.45 cm 44.5 kg/m2 029226.3 2 g 74 /min 151/87 mm[Hg] Janna [place] in [facility], 06/03/2017 08:54:18 Date Recorded Body weight Body mass index (BMI) Body height Heart rate Systolic And Diastolic Provider Name and Address Organization Details Last Updated DateTime 07/23/2018 277125.4 6 g 43.4 kg/m2 171.45 cm 70 /min 176/83 mm[Hg] Janna Matute [place] [facility], 07/23/2018 08:31:09 Social History Question Answer Notes LastModified by Organizat ion Details LastModified Time Tobacco Smoking Status Never Smoker Not Available [employer] 07/25/2020 03:19:41 How Many Years Have You Consumed Alcohol? 40 Information not available 11/28/2023 What Is Your Level Of Caffeine Consumption? Moderate [id number] Information not available 07/25/2020 In The 14 Days Before Symptom Onset, Have You Had Close Contact With A Laboratory-confirm ed COVID-19 While That Case Was Ill? No Information n ot available 11/28/2023 In The 14 Days Before Symptom Onset, Have You Had Close Contact With A Person Who Is Under Investigation For COVID-19 While That Person Was Ill? No Information not available 11/28/2023 Have You Been To An Area Known To Be High Risk For COVID-19? No Information not available 11/28/2023 What Type Of Diet Are You Following? REGULAR [id number] Information n ot available 07/25/2020 Which Illicit Or Recreational Drugs Have You Used? No [id number] Information not available 07/25/2020 Do You Reside In Or Have You Traveled To An Area Where Ebola Virus Transmission Is Active? No [id number] Information not available 07/25/2020 Education 4 Year College Information not available 05/30/2017 What Is The Highest Grade Or Level Of School You Have Completed Or The Highest Degree You Have Received? [id number] Information not available 11/28/2023 Who Is Your Employer? 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 Information not available 11/28/2023 How Many Days In The Past Year Have You Had A Heavy Drinking Consumption (4+ Female, 5+ Male)? 0 Information no t available 05/30/2017 Are There Any Guns Present In Your Home? Yes Information not available 11/28/2023 High Number Of Sexual Partners No Information not available 05/30/2017 To Which Gender Do You Self-identify? Female Information n ot available 05/30/2017 Marital Status [email or web address] Informatio n not available 05/30/2017 What Was The Date Of Your Most Recent Tobacco Screening? 11/28/2023 Information not available 11/28/2023 What Is Your Relationship Status? Information not available 11/28/2023 Are You Sexually Active? Yes [id number] Information not available 07/25/2020 How Much Tobacco Do You Smoke? No [id number] Information not available 07/25/2020 General Stress Level High Information not available 05/30/2017 How Many Years Have You Smoked Tobacco? 0 [id number] Information not available 07/25/2020 Have You Recently (within The Last 12 Weeks, Or During A Current ) Traveled To Or Lived In A Zika-affected Area? No Information not available 05/30/2017 How Many Days In The Past Year Have You Consumed 4 Or More Drinks? 0 Information not available 11/28/2023 Sex: Female Functional Status Question Answer Note LastModified by Organizat ion Details LastModified Time Do you use any illicit or recreational drugs? No Information not available 11/28/2023 What is your level of alcohol consumption? Occasional [id number] Information not available 07/25/2020 Are you currently employed? 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 Information not available 05/30/2017 What is your exercise level? Occasional [id number] Information not available 07/25/2020 Mental Status Question Answer Note LastModified by Organization D etails LastModified Time Do you feel stressed (tense, restless, nervous, or anxious, or unable to sleep at night)? [id number] Information not available 11/28/2023 Family History Relationship Description Onset Age of this Age Resolved Age Notes LastModified by Organization Details LastModified Time Mother Myocardial infarction 77 x2 [email or web address] Not available 05/27 11:50:11 Maternal Grandmother Malignant neoplasm of breast ? [email or web address] Not available 2016 [...] Diagnosis SNOMED-CT Code Diagnosis ICD10 Code Diagnosis IMO Codes Diagnosis Note [id number] MD BETSY Orozco MD [address] [place] [address] 05/30/2017 08:45:48 05/30/2017 11:52:09 Postmenopausal bleeding 92612776 N95.0 08153 MD BETSY Orozco MD [address] [place] [address], [address] [place] [address] 06/03/2017 08:44:45 06/03/2017 11:33:17 Specialized medical examination 94912917 Z01.419 Screening for malignant neoplasm of rectum 135553929 Z12.12 Screening mammography 24 035390 Z12.31 79208 MD BETSY Orozco MD [address] [facility] [place] [address] 07/23/2018 08:18:13 07/23/2018 12:05:41 Specialized medical examination 29791075 Z01.419 Screening for malignant neoplasm of rectum 215570256 Z12.12 Screening mammography 24 480719 Z12.31 Hypertensive disorder 38 281514 I10 75255 MD BETSY Orozco MD [address] [facility] [place] [address] 11/28/2023 09:12:49 11/28/2023 11:23:07 Specialized medical examination 98725152 Z01.419 Screening for malignant neoplasm of rectum 999305003 Z12.12 Screening mammography 24 237231 Z12.31 Pain in pelvis 59443998 R10.2 10223 MD BETSY Orozco MD [address] [place] [address] 12/09/2023 10:14:46 12/09/2023 13:44:24 Postmenopausal bleeding 04911381 N95.0 Health Concerns Section Related Observation LastModified by Organization Detai ls LastModified Time None Recorded Concern Status LastModified by Organization Details LastModified Time None Recorded Advance Directives Directive None Recorded Payers Insurance Date Sequence Insurance Name Policy Number Policy [place]ona Covered Member ID Barahona Member ID Guarantor Name 12/30/2023 1 [facility] [id number] Vernell Savage [id number] Vernell Savage 08/18/2017 1 [facility] ([facility] [id number] Fred Savage [id number] Vernell Savage Notes Date Note Type Note Provider Name and Address Organization Details Recorded Time 05/30/2017 text/html She is here for a problem visit as a new patient, she began the onset of bright red vaginal bleeding like a regular period, began 9 days ago, stopped bleeding yesterday, no bleeding today. 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 Betsy Godoy MD [address] 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 She had recent 7 [...] bleeding yesterday, no bleeding today. 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 She is haivng what appears to be PMB, however it could also represent, The last hurrah. [facility] FSH and serum estradiol levels. If [...] do an emb. Betsy Godoy MD [address], [place], [address], [place] - [facility], 06/03/2017 09:30:12 07/23/2018 text/html She is here for annual exam, is doing well. No menses since last visit. 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 She has two artificial ponds with [place], this is her relaxation! 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 She had recent 7 days of bleeding, her labs she she is not yet in menopause so no sonogram or emb is necessary at this time. 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 She has two artificial ponds with [place], this is her relaxation! Betsy Godoy MD [address], [place], [address], [place] - [facility], 11/28/2023 09:47:52 12/09/2023 text/html She is [...] because of the pain. Betsy Godoy MD [address], [place], [address], [place] [facility], 12/09/2023 11:58:57 OBGyn Episode No OBEpisode recorded.
== END 2025-06-23 12:07 | disposition home or self-care (01) ==
LOC: HO.ENCR 11:37
PROVIDERS: PCP Internal Medicine; Visit Provider Dietitian, Registered
DX: E11.65 Type 2 diabetes mellitus with hyperglycemia (principal)

== ENCOUNTER → 2025-06-23 11:36 | Outpatient (BNVA) | payer OTHER, SELFPAY | PROVIDERS: PCP Internal Medicine; Visit Provider Dietitian, Registered | DX: E11.65 Type 2 diabetes mellitus with hyperglycemia (principal) | CPT/HCPCS: 97803 ==

== ENCOUNTER 2025-08-22 10:15 | Outpatient (AMB) | payer OTHER, SELFPAY ==
--- NOTE | 2025-08-22 10:19 | MHC.PC.OV ---
Vital Signs 08/22/25 10:20 Height 5 ft 9 in Weight 262 lb 6 oz BMI 38.7 BP 116/82 Blood Pressure Location Rt brachial Position Sitting Respiration 16 Pulse 72 Pulse Source Pulse Oximeter Pulse Oximetry (%) 97 Oxygen Delivery Method Room Air Intake Visit Reasons: DM Intake Note: Diabetes follow up Sustainability Manager Required: No Allergies hydrocodone (From Vicodin) Allergy (Severe, Verified 08/22/25 10:20) Unknown lisinopril Allergy (Severe, Verified 08/22/25 10:20) Difficulty Breathing prednisolone Allergy (Severe, Verified 08/22/25 10:20) Unknown Tobacco use date assessed: 08/22/25 Dental Screening Dental Screen Date: 01/25/25 HPI HPI Comments History of Present Illness Details 65-year-old female with a past medical history of allergies/allergic rhinitis, asthma, recurrent sinusitis, Raynaud's, obesity, hyperlipidemia, diabetic range A1C presenting for follow up Diabetes: A1C 6.0% from 6.7%. She has lost 35 pounds. 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 Only sleeping a few hours per night. She has seen the diabetic sintering press operator and changed her diet. She has been able to lose weight since her last A1C. She has a visit upcoming for repeat. is diabetic so has some knowledge. Discussed various treatment options. Wants 3 months to start exercising and wants to see diabetic sintering press operator. Would consider medications if not improved thereafter. LDL has improved but still high especially in light of diabetes. She feels more fatigue than usual for the past 6 months. CV: On chlorthalidone 25 mg a day for hypertension, furosemide prn LE swelling. Controlled. Refuses statin therapy. She has intermittent leg swelling/fluid retention when she works 12 hour shifts. Not eating added salt. Denies shortness of breath Asthma/HGB: On Zyrtec, Flonase, albuterol. History of fluid-filled blisters, bullous pemphigoid, 2019 in about 10/11/2022. No interval issues. History of stable pulmonary nodules. Last CT 01/2023-no follow up needed Mammo 01/2024 Cologuard 02/28/2023 ROS see HPI PHYSICAL EXAM: GENERAL: Alert and oriented x 3. NAD EYES: EOMI. Anicteric. HENT: Moist mucous membranes. No scleral icterus. No cervical lymphadenopathy. LUNGS: Clear to auscultation bilaterally. CARDIOVASCULAR: Regular rate and rhythm. No murmur. No JVD. ABDOMEN: Soft, non-tender +bs EXTREMITIES: No edema. Non-tender. SKIN: No rashes or lesions. Warm. NEUROLOGIC: No focal neurological deficits. CN II-XII grossly intact PSYCHIATRIC: Cooperative. Appropriate mood and affect [facility] Medical History Severe obesity Seasonal allergies Prediabetes Hyperlipidemia Asthma Surgical History Hx of tonsillectomy Family History Brother Heart disease Mother Heart disease Hypertension Father Heart disease Hypertension Social History (Updated 08/22/25 @ 10:30 by Bisi Doherty CMA) Household Members: Spouse Housing: House Are you a primary field care coordinator to a significant other at home: No Do you presently have visiting nurse or other home services: No 75 years or older and lives alone: No Alcohol intake: current Alcohol intake frequency: a few times a month Patient Tobacco Use Status: Never used Tobacco e-Cigarette/Vaping Use: Never Used Second Hand Smoke Exposure: No service: No Current occupational status: employed 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 Cognitive needs: No Hearing needs: No Vision needs: Yes (will be seeing eye doctor) Questionnaire Thrive Questionnaire Date Thrive assessed: 10/22/24 I am a: Patient What is your living situation today?: I have a steady place to live Within the past 12 months, did the food you bought not last and you didn't have the money to get more?: Never true Within the past 12 months, did you worry whether your food would run out before you got money to buy more?: Never true Do you have trouble paying for medicines?: I choose not to answer this question Do you have trouble getting transportation to medical appointments?: No Do you have trouble paying your heating and electricity bill?: I choose not to answer this question Do you have trouble taking care of your child, family member or friend?: No Do you have trouble with day-to-day activities such as bathing, preparing meals, shopping, managing finances, etc.?: No Are you currently unemployed and looking for a job?: No Are you interested in more education?: No Please select the resources that you would like help with: None Currently or been in a relationship where the following occur: No concerns reported THRIVE Score: 0 FARHEEN-7 AMB Questionnaire FARHEEN-7 Date FARHEEN - 7 assessed: 10/22/24 Source: Developed by Drs. Dawood Lopez, Gisela Cornelius, Derek Oates and colleagues, with an educational wilbur from [employer]. Physical exam (Primary Care) Vital Signs: Last Vital Signs Pulse 72 08/22/25 10:20 Resp 16 08/22/25 10:20 BP 116/82 08/22/25 10:20 Pulse Ox 97 08/22/25 10:20 Oxygen Delivery Method Room Air 08/22/25 10:20 BMI result Body Mass Index 38.7 Tobacco/Smoking Status: Tobacco use Status Tobacco use date assessed 08/22/25 08/22/25 10:23 Patient Tobacco Use Status Never used Tobacco 08/22/25 10:30 e-Cigarette/Vaping Use Never Used 08/22/25 10:30 Thrive Assessment: Date of Thrive Assessment Date Thrive assessed 10/22/24 08/22/25 10:20 Currently or been in a relationship where the following occur: No concerns reported Results AMB Hemoglobin A1c AMB Hemoglobin A1c 6.0 % Last Edit by Bisi Doherty CMA on 08/22/25 11:59 Coding Assessment & Plan Assessment & Plan Orders: Orders AMB Hemoglobin A1c Today E11.65 - Type 2 diabetes mellitus with hyperglycemia, E78.2 - Mixed hyperlipidemia, I10 - Essential (primary) hypertension, Z13.9 - Encounter for screening, unspecified Microalbumin, Random (w Creat) Today E11.65 - Type 2 diabetes mellitus with hyperglycemia, E78.2 - Mixed hyperlipidemia, I10 - Essential (primary) hypertension MM tomosynthesis screening BI Today Z12.31 - Encounter for screening mammogram for malignant neoplasm of breast Complete Blood Count Auto Diff Today E11.65 - Type 2 diabetes mellitus with hyperglycemia, E78.2 - Mixed hyperlipidemia, I10 - Essential (primary) hypertension Comprehensive Met. Panel Today E11.65 - Type 2 diabetes mellitus with hyperglycemia, E78.2 - Mixed hyperlipidemia, I10 - Essential (primary) hypertension Lipid Panel Today E11.65 - Type 2 diabetes mellitus with hyperglycemia, E78.2 - Mixed hyperlipidemia, I10 - Essential (primary) hypertension Hemoglobin A1c Today E11.65 - Type 2 diabetes mellitus with hyperglycemia, E78.2 - Mixed hyperlipidemia, I10 - Essential (primary) hypertension
[2025-08-22 10:20] VITALS: BP 116/82; PULSE 72; RESP 16; O2SAT 97; BMI 38.7
--- OUTSIDE RECORDS SUMMARY | 2025-08-22 12:43 | XMS_ITS | Data Portability ---
Author Organization [place] - [facility],, BETSY GODOY MD Address [address] [facility] [address] [place] [address] Care Team Providers Care Stock Preparer Name Role Phone FeltonYEE BARKER Primary Care Provider [phone] Assessment No assessment recorded. Plan of Treatment Reminders Order Date Submit Date Provider Last Modified By Organization Details Last Modified Time Details Appointments None recorded. Lab biopsy, endometri al 2023 024 Plasmonix [facility] (Centralized Electronic Ordering - All Locations), Patient Can Go To The Location Of Their Choice, [id number] 4 07:42:51 pap test, thinprep, cervical 2023 024 Bandwdth Publishing[employer] [facility] (Centralized Electronic Ordering - All Locations), Patient Can Go To The Location Of Their Choice, [id number] 4 08:00:10 fecal occult blood, stool 2023 024 [email or web address] 1 In-Office Order, Internal Use Only DO Not Attach Compendium DO Not Attach Compendium, Do Not Delete/merge, [id number] 4 09:47:29 pap test, thinprep, cervical 2017 018 [facility] Cytopathology Service, [address] [facility], [place], [address], 8 16:57:32 fecal occult blood, stool 2017 018 [email or web address] In-Office Order, Internal Use Only DO Not Attach Compendium DO Not Attach Compendium, Do Not Delete/merge, [id number] 8 08:45:49 pap test, thinprep, cervical 2016 017 [facility] Cytopathology Service, [address] [place], [address], 7 13:20:58 fecal occult blood, stool 2016 017 [email or web address] 1 In-Office Order, Internal Use Only DO Not Attach Compendium DO Not Attach Compendium, Do Not Delete/merge, [id number] 7 09:28:34 FSH (follicle -stimulat ing hormone), serum 2016 017 [facility], [address] [place], [address], 7 04:22:28 estradiol , serum 2016 017 [facility], [address] [place], [address], 7 04:22:26 Referral None recorded. Procedures biopsy, endometri um (PROC) 2023 024 frida In-Office Order, Internal Use Only DO Not Attach Compendium DO Not Attach Compendium, Do Not Delete/merge, [id number] 4 13:44:12 Surgeries None recorded. Imaging MAMMO, screening , digital, bilateral - Breast Aspiratio n and/or Biopsy if needed 2023 024 [facility] ([facility]), [address] [place], [address], 4 14:36:05 US, pelvis, transabdo shauna + transvagi nal - recurrent midline, sharp, pelvic pain, new, over past two months 2023 024 [facility] ([facility]), [address] [facility], [place], [address], 4 07:39:50 MAMMO, screening , digital, bilateral 2017 018 [email or web address] [facility] ([facility]), [address] [place], [address], 9 08:50:18 MAMMO, screening , digital, bilateral 2016 017 HARLEY [facility] ([facility] [address] [place], [address], 7 12:21:58 Medication Orders None recorded. Patient TargetsNo targets recorded. Patient Instructions Encounter Date Encounter Id Patient Instructions Last Modified By Organization Details Last Modified Time 05/30/2017 [id number] vaginal bleeding after menopause: care instructions [email or web address] Not available 05/30/2017 09:55:43 She is here for a problem visit as a new patient, she began the onset of bright red vaginal bleeding like a regular period, began 9 days ago, stopped bleeding yesterday, no bleeding today. 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 She is haivng what appears to be PMB, however it could also represent, [facility] F[facility] and serum estradiol levels. 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 She had recent 7 [...] bleeding yesterday, no bleeding today. 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 She is haivng what appears to be PMB, however it could also represent, The last hurrah. [facility] FSH and serum estradiol levels. [...] vasomotor symptoms. Not available 06/03/2017 09:29:52 07/23/2018 [id number] self breast exam education Not available 07/23/2018 09:15:57 She is here for annual exam, is doing well. No menses since last visit. No significant vasomotor symptoms. Notes 8 pound weight loss this year with eating better. Works at a [employer] in [place]. She has two artificial ponds with [place], this is her relaxation! 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 She had recent 7 [...] questions answered. Not available 07/23/2018 09:16:14 11/28/2023 [id number] learning about healthy weight [email or web address] Not available [...] year with eating better. 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 She has two artificial ponds with [place], this is her relaxation! __ She appears [...] discovers any new mass in the breast. [facility] Not available 11/28/2023 09:47:25 12/09/2023 [id number] postmenopausal bleeding information [facility] Not available 12/09/2023 11:55:54 endometrial biop sy: about this test [facility] Not available 12/09/2023 11:55:55 She is [...] DO Not Attach Compendium, Do Not Delete/merge, [id number] 07/23/2018 08:35:30 06/03/20 17 06/03/2017 fecal occul t blood , stool Occult Blood negati ve Not Available In-Office Order Internal Use Only DO Not Attach Compendium DO Not Attach Compendium, Do Not Delete/merge, [id number] 06/03/2017 08:55:19 05/30/20 17 05/30/2017 estra diol, serum comments [facility] [address] [facility] [place] [address] [phone] Not Available [facility] [address] [place], [address], 05/31/2017 04:22:26 05/30/20 17 05/30/2017 estra diol, [...] - 58.3 Not Available [facility] [address] [place], [address], 05/31/2017 04:22:26 05/30/20 17 05/30/2017 FSH (foll icle- stimu latin g hormo ne), serum comments [facility] [address] [facility] Diony [place] [address] [phone] Not Available [facility] [address] [place], [address], 05/31/2017 04:22:28 05/30/20 17 05/30/2017 FSH (foll [...] - 132.2 Not Available [facility] [address] [place], [address], 05/31/2017 04:22:28 06/03/20 17 06/03/2017 pap, LB [id number] ThinP rep Pap, Image d: NEGAT JULIA [...] , V72.3 1, Z01.4 19 Not Available [facility], Cytopathology Service [address] [place], [address], 06/04/2017 13:20:58 07/23/20 18 07/23/2018 pap, LB [id number] ThinP rep Pap, Image d: NEGAT JULIA [...] neg, z12.4 , z01.4 19 Not Available [facility], Cytopathology Service [address] [facility], [place], [address], 07/24/2018 16:57:32 11/28/19 24 12/04/2023 IGP, RFX APTIM A HPV ASCU diagnosis: Commshaquille t NEGAT JULIA FOR INTRA EPITH ELIAL LESIO N OR CHARITY ELLIS . Not Available [facility] ([facility]) [address] [place], [address], 12/04/2023 12:06:33 11/28/19 24 12/04/2023 IGP, RFX APTIM A HPV ASCU specimen adequacy: Commshaquille t Satis facto ry for evalu ation . No endoc ervic al compo nent is ident ified . Not Available [facility] ([facility]) [address] [facility], [place], [address], 12/04/2023 12:06:33 11/28/19 24 12/04/2023 IGP, RFX APTIM A HPV ASCU clinician provided ICD10: Jose clarke Z01.4 19 Not Available [facility] ([facility]) [address] [place], [address], 12/04/2023 12:06:33 11/28/19 24 12/04/2023 IGP, RFX APTIM A HPV ASCU performed by: Jose hernandez, Cytotricia clarke (ASCP ) Not Available [facility] ([facility]) [address] [facility], [place], [address], 12/04/2023 12:06:33 11/28/19 24 12/04/2023 IGP, RFX APTIM A HPV ASCU . . Not Available [facility] ([facility]) [address] [facility], [place], [address], 12/04/2023 12:06:33 11/28/19 24 12/04/2023 IGP, RFX [...] ts do occur . Not Available [facility] ([facility]) [address] [facility], [place], [address], 12/04/2023 12:06:33 11/28/19 24 12/04/2023 IGP, RFX APTIM A HPV ASCU test methodology: Commen t This liqui d based ThinP rep(R ) pap test was scree kyle with the use of an image guide d syste m. Not Available [facility] ([facility]) [address] [place], [address], 12/04/2023 12:06:33 11/28/19 24 12/04/2023 IGP, RFX APTIM A HPV ASCU . Commen t The HPV DNA refle x crite fredrick were not met with this speci men resul t there fore, no HPV testi ng was perfo rmed. Not Available [facility] ([facility]) [address] [facility], [place], [address], 12/04/2023 12:06:33 03/0811/28/2023 fecal occul t blood , stool Occult Blood negati ve Not Available In-Office Order Internal Use Only DO Not Attach Compendium DO Not Attach Compendium, Do Not Delete/merge, [id number] 11/28/2023 09:16:39 12/09/1912/09/2023 [facility] [...] Avendora e, Dotty grier [place] (CLIA #[id number]). Its perfo rmanc e telma cteri stics are deter mined by [employer] . Phone #: [phone], On-[place] ll Patho logis t: [id number] Not Available [facility] (Centralized Electronic Ordering - All Locations) Patient Can Go To The Location Of Their Choice, [id number] 12/11/2023 15:46:25 07/15/20 17 07/15/2017 MAMMO , scree betina, digit al, bilat eral No observ ation record ed. Not Available 06/23 12:24:58 12/03/1912/02/2023 US, pelvi s, trans abdom inal + trans vagin al No observ ation record ed. [email or web address] [address] [facility], [place], [address], 12/09/2023 10:18:09 02/18/20 24 02/18/2024 MAMMO , scree betina, digit al, bilat eral No observ ation record ed. [facility] [address], [place], [address], 02/19/2024 07:51:20 Result Notes None recorded. Problems Name Problem SNOMED Code Status Onset Date Resolution Date Notes Provider Name and Address Organization Details Recorded Time Asthma 738294915 Active 2016 TONNY Zheng in [facility], 7 11:45:24 Raynaud's disease 777340823 Active 2016 TONNY Zheng in [facility], 7 11:45:41 Hypercholester olemia 95701240 Active 2016 TONNY Zheng in [facility], 7 11:46:02 Postmenopausal bleeding 56072675 Active 2016 TONNY Zheng in [facility], 7 11:46:22 Headache 39294069 Active 2016 TONNY Zheng in [facility], 7 11:46:44 Morbid obesity 863467944 Active 2016 TONNY Zheng in [facility], 7 11:47:05 Hypertensive disorder 18317284 Active 2017 Betsy Godoy MD [address] [facility], [place], [address], [place] - [facility], 8 09:15:52 Problem Notes None recorded. Procedures Surgical History Date Name Laterality Status Provider Name and Address Organization Details Recorded Time 12/09/19 24 Endometrial Biopsy completed Betsy Godoy MD [address] [facility],[address], [place], [address], [place] - [facility], 12/09/2023 11:58:24 Tonsillectomy completed Annamarie [place] in [facility], 05/27/2017 11:48:02 Imaging Results None recorded. Procedure Notes None recorded. Medical Equipment None Reported. Allergies Allergen ID Allergen Name Allergen Category Reaction Reaction Severity Criticality Documentation Date Start Date Code Code System Note Provider Name and Address Organization Details Recorded Time prednison e medicatio n other Not available Not available 05/27/2017 8640 RxNorm tearf mandie ss & antoniae abebe s TONNY Zheng in [facility], 7 11:44:09 acetamino phen / hydrocodo ne medicatio n rash Not available Not available 05/27/2017 73283 2 RxNorm TONNY Zheng in [facility], 7 11:44:32 lisinopri l medicatio n cough Not available Not available 07/23/2018 62427 RxNorm Janna [place] Cain in [facility], 8 08:33:27 Medications Name Sig Start Date [...] Updated DateTime 11/28/2023 170.18 cm 45.6 kg/m2 242696.3 8 g 76 /min 147/80 mm[Hg] Janna [place] in [facility], 11/28/2023 09:18:52 Date Recorded Body height Body mass index (BMI) Body weight Heart rate Systolic And Diastolic Provider Name and Address Organization Details Last Updated DateTime 12/09/2023 170.18 cm 46 kg/m2 766846 g 88 /min 165/88 mm[Hg] jennifer [place] in [facility], 12/09/2023 10:21:29 Date Recorded Body weight Body mass index (BMI) Body height Heart rate Systolic And Diastolic Provider Name and Address Organization Details Last Updated DateTime 05/30/2017 263560.3 5 g 44.7 kg/m2 171.45 cm 71 /min 174/84 mm[Hg] Janna [place] in [facility], 05/30/2017 09:00:59 Date Recorded Body height Body mass index (BMI) Body weight Heart rate Systolic And Diastolic Provider Name and Address Organization Details Last Updated DateTime 06/03/2017 171.45 cm 44.5 kg/m2 107528.3 2 g 74 /min 151/87 mm[Hg] Janna [place] in [facility], 06/03/2017 08:54:18 Date Recorded Body weight Body mass index (BMI) Body height Heart rate Systolic And Diastolic Provider Name and Address Organization Details Last Updated DateTime 07/23/2018 124086.4 6 g 43.4 kg/m2 171.45 cm 70 /min 176/83 mm[Hg] Janna Matute [place] - [facility], 07/23/2018 08:31:09 Social History Question Answer Notes LastModified by Organizat ion Details LastModified Time Tobacco Smoking Status Never Smoker Not Available [employer] 07/25/2020 03:19:41 How Many Years Have You Consumed Alcohol? 40 Information not available 11/28/2023 What Is Your Level Of Caffeine Consumption? Moderate [id number] Information not available 07/25/2020 In The 14 [...] Type Of Diet Are You Following? REGULAR [id number] Information n ot available 07/25/2020 Which Illicit Or Recreational Drugs Have You Used? No [id number] Information not available 07/25/2020 Do You Reside In Or Have You Traveled To An Area Where Ebola Virus Transmission Is Active? No [id number] Information not available 07/25/2020 Education 4 Year College Information not available 05/30/2017 What Is The Highest Grade Or Level Of School You Have Completed Or The Highest Degree You Have Received? LP19069-3 Information not available 11/28/2023 Who Is Your [...] available 11/28/2023 Are You Sexually Active? Yes [id number] Information not available 07/25/2020 How Much Tobacco Do You Smoke? No [id number] Information not available 07/25/2020 General Stress Level High Information not available 05/30/2017 How Many Years Have You Smoked Tobacco? 0 [id number] Information not available 07/25/2020 Have You Recently [...] is your level of alcohol consumption? Occasional [id number] Information not available 07/25/2020 Are you currently employed? 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 Information not available 05/30/2017 What is your exercise level? Occasional [id number] Information not available 07/25/2020 Mental Status Question Answer Note LastModified by Organization D etails LastModified Time Do you feel stressed (tense, restless, nervous, or anxious, or unable to sleep at night)? [id number] Information not available 11/28/2023 Family History Relationship [...] ICD10 Code Diagnosis IMO Codes Diagnosis Note [id number] MD BETSY Orozco MD [address] [facility] [address] [place] [address] 05/30/2017 08:45:48 05/30/2017 11:52:09 Postmenopausal bleeding 53063493 N95.0 [id number] MD BETSY Orozco MD [address] [place] [address], [address] [place] [address] 06/03/2017 08:44:45 06/03/2017 11:33:17 Specialized medical examination 22067790 Z01.419 Screening for malignant neoplasm of rectum 545391223 Z12.12 Screening mammography 24 888377 Z12.31 [id number] MD BETSY Orozco MD [address] [facility] [place] [address] 07/23/2018 08:18:13 07/23/2018 12:05:41 Specialized medical examination 37143364 Z01.419 Screening for malignant neoplasm of rectum 376137433 Z12.12 Screening mammography 24 885468 Z12.31 Hypertensive disorder 38 699888 I10 [id number] MD BETSY Orozco MD [address] [facility] [place] [address] 11/28/2023 09:12:49 11/28/2023 11:23:07 Specialized medical examination 08259593 Z01.419 Screening for malignant neoplasm of rectum 447149835 Z12.12 Screening mammography 24 228803 Z12.31 Pain in pelvis 26476240 R10.2 [id number] MD BETSY Orozco MD [address] [place] [address] 12/09/2023 10:14:46 12/09/2023 13:44:24 Postmenopausal bleeding 92248170 N95.0 Health Concerns Section Related Observation LastModified by Organization Detai ls LastModified Time None Recorded Concern Status LastModified by Organization Details LastModified Time None Recorded Advance Directives Directive None Recorded Payers Insurance Date Sequence Insurance Name Policy Number Policy [place] Covered Member ID Barahona Member ID Guarantor Name 12/30/2023 1 [facility] [id number] Vernell Savage [id number] Vernell Savage 08/18/2017 1 [facility] [id number] Fred Savage [id number] Vernell Savage Notes Date Note Type Note Provider Name and Address Organization Details Recorded Time 05/30/2017 text/html She is here for a problem visit as a new patient, she began the onset of bright red vaginal bleeding like a regular period, began 9 days ago, stopped bleeding yesterday, no bleeding today. 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 Betsy Godoy MD [address] [facility],[address], [place], [address], [place] [facility], 05/30/2017 11:18:50 06/03/2017 text/html She is here for annual exam, has not had a machine designer exam since 2010. She had recent 7 [...] bleeding yesterday, no bleeding today. 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 She is haivng what appears to be PMB, however it could also represent, The last hurrah. [facility] FSH and serum estradiol levels. [...] do an emb. Betsy Godoy MD [address], [place], [address], [place] - [facility], 06/03/2017 09:30:12 07/23/2018 text/html She is here for annual exam, is doing well. No menses since last visit. 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 She has two artificial ponds with [place], this is her relaxation! Note from 2016: She is here for annual exam, has not had a machine designer exam since 2010. She had recent 7 days of bleeding, her labs she she is not yet in menopause so no sonogram or emb is necessary at this time. Betsy Godoy MD [address], [place], [address], [place] - [facility], 07/23/2018 09:16:33 11/28/2023 text/html She is here [...] this year with eating better.Works at a [employer] shop in [place]. She has two artificial ponds [place], this is her relaxation! Betsy Godoy MD [address], [place], [address], [place] - [facility], 11/28/2023 09:47:52 12/09/2023 text/html She is here [...] of the pain. Betsy Godoy MD [address], [place], [address], [place] - [facility], 12/09/2023 11:58:57 OBGyn Episode No OBEpisode recorded.
== END 2025-08-22 10:45 | disposition home or self-care (01) ==
LOC: HO.HMCFM 10:16
PROVIDERS: PCP Internal Medicine; Visit Provider Internal Medicine
DX: Z13.9 Encounter for screening, unspecified (principal); I10 Essential (primary) hypertension; E78.2 Mixed hyperlipidemia; E11.65 Type 2 diabetes mellitus with hyperglycemia

== ENCOUNTER → 2025-08-22 10:15 | Outpatient (BNVA) | payer OTHER, SELFPAY | PROVIDERS: PCP Internal Medicine; Visit Provider Internal Medicine | DX: E11.65 Type 2 diabetes mellitus with hyperglycemia (principal); I10 Essential (primary) hypertension; E78.2 Mixed hyperlipidemia; J45.909 Unspecified asthma, uncomplicated; Z79.85 Long-term (current) use of injectable non-insulin antidiabetic drugs; Z79.899 Other long term (current) drug therapy | CPT/HCPCS: 83036 ==